=== PATIENT | female | born 1945 | race Caucasian/White ===

== ENCOUNTER 2020-03-04 13:58 | Observation (INO) | payer MEDICARE, SELFPAY ==
[2020-03-04] VITALS (12 sets, daily range): BP systolic 148–210; BP diastolic 46–96; PULSE 45–72; RESP 17–20; TEMP 36.6–36.7; O2SAT 98–100; BMI 28.0
--- NOTE | ~2020-03-04 | XR_ITS ---
XR chest 1V portable 03/04/2020 14:58 Indication: Hypertension. Procedure: AP portable chest Comparison: 04/29/2017 Findings: Heart size normal for technique. No focal air space disease, pulmonary edema, pleural effus ion or suspected pneumothorax. No acute osseous abnormality. Impression: 1: No acute cardiopulmonary disease. Reviewed, dictated and finalized at location A. Impression: 1: No acute cardiopulmonary disease.
[2020-03-04 15:09] LABS: Basophils Percent Auto 0.6 % (0.2-1.2); Eosinophils Absolute Auto 0.3 K/mm3 (0-0.3); Eosinophils Percent Auto 5.1 % (0-4.4); Hematocrit 39.7 % (37.0-47.0); Hemoglobin 12.6 g/dL (12.0-15.0); Immature Granulocyte Absolute 0.01 K/mm3 (0.00-0.031); Immature Granulocyte Percent A 0.2 % (0-0.5); Lymphocytes Absolute Auto 1.69 K/mm3 (0.9-3.2); Lymphocytes Percent Auto 26.9 % (18.3-44.2); Mean Corpuscular HGB Conc 31.7 g/dl (32-36); Mean Corpuscular Hemoglobin 26.8 pg (26-34); Mean Corpuscular Volume 84.5 fl (80-100); Mean Platelet Volume 10.3 fl (7.4-10.4); Monocytes Absolute Auto 0.5 K/mm3 (0.1-0.6); Monocytes Percent Auto 7.8 % (2.6-8.5); Neutrophils Absolute Auto 3.7 K/mm3 (1.3-6.7); Neutrophils Percent Auto 59.4 % (45.5-73.1); Platelet Count Result 196 k/mm3 (150-375); Red Cell Distribution Width 13.4 % (11.5-14.5); White Blood Count 6.3 K/mm3 (4.5-10.0)
[2020-03-04] MEDS: SODIUM CHLORIDE 0.9% IV 1,000 ML 999 ML IV CONT (15:17)
[2020-03-04 15:20] LABS: Alanine Aminotransferase 12 U/L (4-35); Alkaline Phosphatase 104 U/L (38-126); Aspartate Amino Transferase 22 U/L (14-36); Bilirubin,Total 0.4 mg/dL (0.2-1.3); Blood Urea Nitrogen 21 mg/dL (7-17); Carbon Dioxide 27 mmol/L (22-30); Chloride 106 mmol/L (98-107); Estimated CRCL calculation 49 ml/min; Estimated Glomerular Filt Rate > 60; Glucose 97 mg/dL (65-105); Potassium 4.2 mmol/L (3.4-5.0); Sodium 138 mmol/L (137-145)
[2020-03-04 15:24] LABS: Prothrombin Time 12.5 Seconds (11.1-14.7)
[2020-03-04 15:25] LABS: Partial Thromboplastin Time 27.6 SECONDS (22.3-36.8)
[2020-03-04 15:32] LABS: Troponin I < 0.012 ng/mL (0.000-0.034)
--- NOTE | 2020-03-04 15:32 | ED.GENADULT ---
HPI - General Adult General Chief complaint: Unspecified <VAN Boswell Last Filed: 03/04/20 18:01> Stated complaint: high bp <VAN Boswell Last Filed: 03/04/20 18:01> Time Seen by Provider: 03/04/20 14:20 <VAN Boswell Last Filed: 03/04/20 18:01> Source: patient <VAN Boswell Last Filed: 03/04/20 18:01> Mode of arrival: ambulatory <VAN Boswell Last Filed: 03/04/20 18:01> Limitations: no limitations <VAN Boswell Last Filed: 03/04/20 18:01> History of Present Illness HPI narrative: Patient is a 74-year-old female who presents to emergency department for evaluation of palpitations that began this morning while walking up the stairs have been working in her yard went inside went to the basement and upon walking up the stairs began to feel as though she was having palpitations sat down and then decided to go to urgent care where she was evaluated found to have hypertension was referred to the emergency department for further evaluation of her palpitations and elevated blood pressure. Patient notes several months prior she had taken herself off all of her medications. Patient is followed by Dr. Chavarria. Patient denies any recent illness sick contacts. Patient denies chest pain dyspnea lightheadedness or dizziness <VAN Boswell Last Filed: 03/04/20 18:01> Related Data Home medications: Home Medications Medication Instructions Recorded Confirmed No Home Medications 03/04/20 03/04/20 <VAN Boswell Last Filed: 03/04/20 18:01> Allergies/adverse reactions: Allergies Allergy/AdvReac Type Severity Reaction Status Date / Time No Known Allergies Allergy Unverified 03/04/20 14:08 <VAN Boswell Last Filed: 03/04/20 18:01> Review of Systems Review of Systems: All systems reviewed & are unremarkable except as noted in HPI and below <VAN Boswell Last Filed: 03/04/20 18:01> [facility] Past Medical History Medical History: Medical History (Updated 03/04/20 @ 18:00 by Ron Zaragoza PA-C) Breast cancer Hypertension <Ron Zaragoza PA-C - Last Filed: 03/04/20 18:01> Family History Family History: Family History (Updated 04/28/18 @ 11:41 by DOCTOR UNKNOWN) Father Hypertension Family history of coronary artery disease Family history of malignant neoplasm Patient's father is Grandparent Cerebrovascular accident Mother Carcinoma of colon Family history of malignant neoplasm Patient's mother is Sibling Patient's sister is in good health Patient's brother is in good health <Ron Zaragoza PA-C - Last Filed: 03/04/20 18:01> Social History Social History: Social History Smoking status: Former smoker Smoking end date: 11/07/82 Alcohol intake: current Gender identity (if verbalized by the patient): Female <Ron Zaragoza PA-C - Last Filed: 03/04/20 18:01> Exam Narrative: Exam Narrative: GENERAL: Well-appearing, well-nourished, and in no acute distress. HEAD: Normocephalic, atraumatic. EYES: PERRLA and EOMI. ENT: Nares clear, no rhinorrhea or epistaxis. Mucous membranes moist. CHEST: Clear to auscultation. No respiratory distress. No wheezes rales or rhonchi HEART: Regular rate and rhythm. No murmur heard. Normal peripheral pulses. ABDOMEN: Soft, nontender, nondistended EXTREMITIES: Normal range of motion. No edema. SKIN: Warm, dry, no rash. NEURO: No focal deficits. Alert and oriented x3. Cranial nerves II through XII grossly intact PSYCH: Normal mood and affect. <Ron Zaragoza PA-C - Last Filed: 03/04/20 18:01> Course Course Emergency Course: Patient in the room in no distress aware of case findings treatment plan and diagnosis agreeing to stay in hospital will be placed in the IMU
--- NOTE | 2020-03-04 15:38 | ECG_ITS ---
Measurements Intervals [place] Rate: 51 P: 40 AL: 159 QRS: 82 QRSD: 97 T: 88 QT: 462 QTc: 427 Interpretive Statements SINUS BRADYCARDIA WITH MARKED SINUS ARRHYTHMIA ATRIAL PREMATURE COMPLEX BORDERLINE ST ABNORMALITY- ANTEROLAT/LAT LEADS BORDERLINE ECG Electronically Signed On 03-05-2020 7:12:45 CDT by Cristo Hernández D.O.
--- NOTE | 2020-03-04 17:07 | PC.NURSE ---
Called lab to add on TSH Reflex.
[2020-03-04 17:18] LABS: Add Urine Microscopic? YES; Appearance Urine Clear (Clear); Bilirubin Urine Negative (Negative); Blood Urine Negative (Negative); Color Urine Colorless (Yellow); Glucose Urine UA Negative (Negative); Ketones Urine Negative (Negative); Leukocyte Esterase Ur Trace LEU/UL (Negative); Nitrate Urine Negative (Negative); Protein Urine Negative (Negative); RBC Urine 0-2 /hpf (0-2); Specific Grav Ur 1.006 (1.001-1.035); Squamous Epithelial Cell Urine Rare /hpf (Few); Urobilinogen Urine Negative mg/dL (<2.0)
--- NOTE | 2020-03-04 18:13 | PC.NURSE ---
Patient given 10 mg (0.5ml) of hydralazine IVP at this time per order of ELIZABETH Hill
[2020-03-04] MEDS: hydrALAZINE HCL 20 MG/ML VIAL (18:19)
[2020-03-04 18:46] LABS: Troponin I < 0.012 ng/mL (0.000-0.034)
--- NOTE | 2020-03-04 20:27 | ADMGEN ---
This patient, Bekah Gore, was admitted to IMU Room 203-01. Patient/family oriented to hospital policies and general routines including ID bracelet, bed and alarms, visiting hours, pain management, procedures, bathroom and other care routines, personal items, smoking policy, room service/diet, and visiting hours. Valuables list has been completed. Information on how to activate the Rapid Response Team has been discussed. Patient/Family are encouraged to report perceived risks to care and to ask questions if they do not understand what they are told or what they should do.
[2020-03-04] MEDS: LACTATED RINGERS 1,000 ML 75 ML IV CONT (21:02)
[2020-03-05] VITALS (11 sets, daily range): BP systolic 155–167; BP diastolic 48–67; PULSE 46–90; RESP 16–18; TEMP 36.1–36.6; O2SAT 97–98
--- NOTE | 2020-03-05 09:13 | PM.IMHP ---
H&P: HPI History of Present Illness Chief complaint: Bradycardia, Hypertension Review of Systems Review of Systems: Narrative: Generalized joint aches helped by 2 [place] and black sotomayor juice. All systems reviewed & are unremarkable except as noted in HPI and below PMFSH Past Medical History Medical History (Updated 03/05/20 @ 09:20 by Negrito Crowley MD) Breast cancer 2010, treated with lumpectomy and adjuvant radiotherapy Hypertension dx about 2009 Surgical History Surgical History (Updated 03/05/20 @ 09:18 by Negrito Crowley MD) H/O lumpectomy 2010 Family History Family History Father Hypertension Family history of coronary artery disease Family history of malignant neoplasm Patient's father is Grandparent Cerebrovascular accident Mother Carcinoma of colon Family history of malignant neoplasm Patient's mother is Sibling Patient's sister is in good health Patient's brother is in good health Social History Social History (Updated 03/05/20 @ 09:19 by Negrito Crowley MD) Years smoked: 10 Smoking status: Former smoker Tobacco type: cigarettes Second hand tobacco smoke exposure: Yes Smoking end date: 11/07/82 Alcohol intake: current Alcohol use details: Occasional red wine. Occasional gin and tonic when her sister visits. Substance use: never Substance use type: does not use Living arrangements: with family Additional living arrangements comments: Resides with spouse Occupation/Education: retired Gender identity (if verbalized by the patient): Female Spiritual care concerns: Yes (faith) Agree to blood products: Yes Meds Home Medications and Allergies Home Medications Medication Instructions Recorded Confirmed Type ascorbic acid (vitamin C) [Vitamin 250 mg PO DAILY 03/04/20 03/04/20 History C] calcium carbonate [Calcium 500] 500 mg PO DAILY 03/04/20 03/04/20 History turmeric 400 mg PO DAILY 03/04/20 03/04/20 History vitamin B complex 1 cap PO DAILY 03/04/20 03/04/20 History zinc 50 mg PO DAILY 03/04/20 03/04/20 History Allergies Allergy/AdvReac Type Severity Reaction Status Date / Time No Known Allergies Allergy Unverified 03/04/20 14:08 Vital Signs Vital Signs - 24 hr 03/04/20 14:05 03/04/20 14:19 03/04/20 14:24 Temperature 97.8 F Pulse Rate 53 L 45 L 46 L Respiratory Rate 18 20 Blood Pressure 154/96 H 210/76 H Pulse Oximetry 100 99 03/04/20 15:18 03/04/20 16:30 03/04/20 17:08 Temperature Pulse Rate 47 L 56 L 57 L Respiratory Rate 20 20 Blood Pressure 200/61 H 167/59 H 210/76 H Pulse Oximetry 99 100 03/04/20 18:01 03/04/20 19:12 03/04/20 20:00 Temperature 97.9 F 98.0 F Pulse Rate 58 L 72 60 Respiratory Rate 17 20 20 Blood Pressure 187/80 H 166/57 H 165/53 H Pulse Oximetry 98 98 98 03/04/20 20:15 03/04/20 22:00 03/04/20 23:33 Temperature 98.0 F Pulse Rate 48 L 54 L Respiratory Rate 20 18 Blood Pressure 148/46 H Pulse Oximetry 98 99 03/05/20 00:00 03/05/20 02:00 03/05/20 04:00 Temperature 97.8 F Pulse Rate 53 L 51 L 51 L Respiratory Rate 18 Blood Pressure 155/67 H Pulse Oximetry 97 03/05/20 05:57 03/05/20 07:57 Temperature 96.9 F L Pulse Rate 49 L 90 Respiratory Rate 18 Blood Pressure 162/55 H Pulse Oximetry 98 Exam Narrative: Exam Narrative: HEENT: EOMI, PERRL, pharyngeal mucosa pink and intact NECK: No JVD, adenopathy, or thyromegaly. About 2 x 1 cm nontender subcutaneous cyst supraclavicular CHEST: Clear to auscultation. Normal effort. HEART: NL S1/S2, regular, no murmur ABDOMEN: BS+, soft, nontender, no mass, no bruits EXTREMITIES: No cyanosis, edema, or clubbing NEUROLOGIC: CN intact and symmetric to inspection. MUSCULOSKELETAL: Tone and strength symmetric. PSYCH: Alert. Oriented to person, place, and time. H&P: Results Labs Labs: Short CBC
--- NOTE | 2020-03-05 09:22 | PM.SD ---
Same Day Admit/Disch: HPI History of Present Illness Chief complaint: Bradycardia, Hypertension Narrative: Bekah Gore is a 74 year old female who was diagnosed with hypertension about 10 years ago. She was treated with valsartan 300 mg daily. She was also taking Prilosec 20 mg daily for acid reflux. Blood pressure and heartburn were both well controlled. She moved to this area about 5 years ago. Blood pressures are doing well. She did lose some weight. Wanted to decrease her medication. It was not decreased. About June of 2019 she received letters all regarding both drugs she was taking stating that both might be carcinogenic. She decided to intensify her healthy lifestyle with walking low-salt and weight loss. She stopped both drugs. She did not monitor her blood pressure. She continued to feel well. However over the last couple of weeks she began to experience some heavy beats in her chest, as if she were feeling her heartbeat intermittently. Her had a blood pressure cuff and on 02/24 a she decided to check it. It was 210/90. She presented to urgent care and then to the emergency department. She denied chest pain dizziness syncope presyncope headache weakness or numbness shortness of breath edema. She denied and epistaxis or other abnormal bleeding. [facility] Past Medical History Medical History Breast cancer 2010, treated with lumpectomy and adjuvant radiotherapy Hypertension dx about 2009 Surgical History Surgical History H/O lumpectomy 2010 Family History Family History Father Hypertension Family history of coronary artery disease Family history of malignant neoplasm Patient's father is Grandparent Cerebrovascular accident Mother Carcinoma of colon Family history of malignant neoplasm Patient's mother is Sibling Patient's sister is in good health Patient's brother is in good health Social History Social History Years smoked: 10 Smoking status: Former smoker Tobacco type: cigarettes Second hand tobacco smoke exposure: Yes Smoking end date: 11/07/82 Alcohol intake: current Alcohol use details: Occasional red wine. Occasional gin and tonic when her sister visits. Substance use: never Substance use type: does not use Living arrangements: with family Additional living arrangements comments: Resides with spouse Occupation/Education: retired Gender identity (if verbalized by the patient): Female Spiritual care concerns: Yes (lutheran) Agree to blood products: Yes Same Day Admit/Disch: Med Pre-admit Medications Home Medications Medication Instructions Recorded Confirmed Type ascorbic acid (vitamin C) [Vitamin 250 mg PO DAILY 03/04/20 03/04/20 History C] calcium carbonate [Calcium 500] 500 mg PO DAILY 03/04/20 03/04/20 History turmeric 400 mg PO DAILY 03/04/20 03/04/20 History vitamin B complex 1 cap PO DAILY 03/04/20 03/04/20 History zinc 50 mg PO DAILY 03/04/20 03/04/20 History Exam Narrative: Exam Narrative: HEENT: EOMI, PERRL, pharyngeal mucosa pink and intact NECK: No JVD, adenopathy, or thyromegaly. About 2 x 1 cm nontender subcutaneous cyst supraclavicular CHEST: Clear to auscultation. Normal effort. HEART: NL S1/S2, regular, no murmur ABDOMEN: BS+, soft, nontender, no mass, no bruits EXTREMITIES: No cyanosis, edema, or clubbing NEUROLOGIC: CN intact and symmetric to inspection. MUSCULOSKELETAL: Tone and strength symmetric. PSYCH: Alert. Oriented to person, place, and time. DS: Data Data Completed and Pending Labs on day of discharge: Labs from last 24 hours 03/04/20 03/04/20 03/04/20 17:56 17:11 15:02 WBC RBC Hgb Hct MCV MCH MCHC RDW
[2020-03-05] MEDS: AMLODIPINE BESYLATE 5 MG TABLET PO (10:16)
== END 2020-03-05 13:55 | disposition home or self-care (01) ==
LOC: ANHED 18:07 → ANHIMU 20:31
PROVIDERS: Emergency Medicine Emergency Medical Services; Admitting Provider Internal Medicine; Emergency Provider Emergency Medicine; PCP Internal Medicine; Visit Provider Internal Medicine
DX: I16.0 Hypertensive urgency (principal); I10 Essential (primary) hypertension; R00.1 Bradycardia, unspecified; Z85.3 Personal history of malignant neoplasm of breast; Z87.891 Personal history of nicotine dependence
CPT/HCPCS: 36415; 71045; 80053; 81001; 84443; 84484; 85025; 85610; 85730; 93005; 96361; 96374; 99285; A9270; G0378; J0360; J7030; J7120

== ENCOUNTER 2020-03-21 06:59 | Outpatient (CLI) | payer MEDICARE, SELFPAY ==
[2020-03-21 17:06] LABS: SARS-CoV-2 RNA PCR Negative
== END 2020-03-21 07:00 | disposition home or self-care (01) ==
LOC: ANHCOVIDDT 07:00
PROVIDERS: PCP Internal Medicine; Visit Provider Internal Medicine Gastroenterology
DX: Z01.818 Encounter for other preprocedural examination (principal); Z11.59 Encounter for screening for other viral diseases
CPT/HCPCS: 87635; C9803; U0003

== ENCOUNTER 2020-03-24 01:42 | Day surgery (SDC) | payer MEDICARE, SELFPAY ==
[2020-03-18 14:29] VITALS: BMI 27.0
[2020-03-24 06:47] VITALS: BP 165/68; PULSE 57; RESP 16; TEMP 36.8; O2SAT 100
[2020-03-24] MEDS: LACTATED RINGERS 1,000 ML 150 ML IV CONT (07:07)
--- NOTE | 2020-03-24 07:09 | P.PNAN_ITS ---
Anes - Initial Pre Proc Eval Procedure: Operation Date: 03/24/20 08:00 Proposed Procedures p Esophagogastroduodenoscopy - Niko Dolan MD Date/Time: 03/24/20 07:09 Surgeon: Niko Dolan MD Pre Op Diagnosis: Dysphagia Patient Data Age: 74 Gender: F Height: 5 ft 6 in Weight: 76.3 kg Last Vital Signs Temp 36.8 C 03/24/20 06:47 Pulse 57 L 03/24/20 06:47 Resp 16 03/24/20 06:47 BP 165/68 H 03/24/20 06:47 Pulse Ox 100 03/24/20 06:47 Allergies Allergy/AdvReac Type Severity Reaction Status Date / Time No Known Allergies Allergy Unverified 03/24/20 06:58 Home Medications Medication Instructions Recorded Confirmed Type ascorbic acid (vitamin C) [Vitamin 250 mg PO DAILY 03/04/20 03/18/20 History C] calcium carbonate [Calcium 500] 500 mg PO DAILY 03/04/20 03/18/20 History turmeric 400 mg PO DAILY 03/04/20 03/18/20 History vitamin B complex 1 cap PO DAILY 03/04/20 03/18/20 History zinc 50 mg PO DAILY 03/04/20 03/18/20 History amlodipine 10 mg tablet 10 mg PO DAILY #90 tablet 03/13/20 03/18/20 Rx Patient hx anesthesia problems: none Family hx anesthesia problems: none PMFSH Past Medical History Medical History (Updated 03/24/20 @ 07:10 by Josue Hunter MD) Asthma Breast cancer 2010, treated with lumpectomy and adjuvant radiotherapy GERD (gastroesophageal reflux disease) Hypertension dx about 2009 Surgical History Surgical History H/O lumpectomy 2010 Family History Family History Father Hypertension Family history of coronary artery disease Family history of malignant neoplasm Patient's father is Grandparent Cerebrovascular accident Mother Carcinoma of colon Family history of malignant neoplasm Patient's mother is Sibling Patient's sister is in good health Patient's brother is in good health Social History Social History Years smoked: 10 Smoking status: Former smoker Tobacco type: cigarettes Second hand tobacco smoke exposure: Yes Smoking end date: 11/07/82 Alcohol intake: current Substance use: never Substance use type: does not use Additional living arrangements comments: Resides with spouse Gender identity (if verbalized by the patient): Female Spiritual care concerns: Yes (episcopal) Agree to blood products: Yes Anes - Eval Final PreProcedure Day of Procedure 03/24/20 07:09 Patient weight: overweight Heart: regular rate and rhythm Lungs: decreased breath sounds Airway: Mallampati scale class 1 Neurological: alert and oriented Last oral intake: >/= 8 hours ASA classification: III Emergent: no Anesthetic plan: proceed Anesthesia type and monitoring: general GIVS and standard monitoring Informed Consent: The patient's anesthetic plan and its attendant risks and benefits were discussed with the patient/family/POA. Questions were solicited and answers provided to the satisfaction of the patient/family/POA.
--- NOTE | 2020-03-24 07:20 | PM.HPGS ---
History of Present Illness History of Present Illness Consent: Risks, benefits, and alternatives have been discussed and questions answered. Patient agrees to proceed with procedure. Chief complaint: Dysphagia Narrative: Bekah Gore is a 74 year old W female referred for gastroscopy for evaluation of intermittent dysphagia for primarily solids but occasionally occurs with liquids. She points to her cervical region. She has also had increased symptoms of hoarseness. She does have a history of gastroesophageal reflux disease. She had been on proton pump inhibitors for long period of time stop this for the past couple years because of warning with medications. Patient did have a gastroscopy performed by myself in 2017 for similar symptoms. No structural abnormalities were noted. There was recommended the patient have an esophageal motility study but this was not performed. Patient was recently hospitalized for hypertension and bradycardia. She has stopped her blood pressure medicine the well. [facility] Past Medical History Medical History Asthma Breast cancer 2010, treated with lumpectomy and adjuvant radiotherapy GERD (gastroesophageal reflux disease) Hypertension dx about 2009 Surgical History Surgical History H/O lumpectomy 2010 Family History Family History Father Hypertension Family history of coronary artery disease Family history of malignant neoplasm Patient's father is Grandparent Cerebrovascular accident Mother Carcinoma of colon Family history of malignant neoplasm Patient's mother is Sibling Patient's sister is in good health Patient's brother is in good health Social History Social History Years smoked: 10 Smoking status: Former smoker Tobacco type: cigarettes Second hand tobacco smoke exposure: Yes Smoking end date: 11/07/82 Alcohol intake: current Substance use: never Substance use type: does not use Additional living arrangements comments: Resides with spouse Gender identity (if verbalized by the patient): Female Spiritual care concerns: Yes (religion) Agree to blood products: Yes Meds Home Medications and Allergies Home Medications Medication Instructions Recorded Confirmed Type ascorbic acid (vitamin C) [Vitamin 250 mg PO DAILY 03/04/20 03/18/20 History C] calcium carbonate [Calcium 500] 500 mg PO DAILY 03/04/20 03/18/20 History turmeric 400 mg PO DAILY 03/04/20 03/18/20 History vitamin B complex 1 cap PO DAILY 03/04/20 03/18/20 History zinc 50 mg PO DAILY 03/04/20 03/18/20 History amlodipine 10 mg tablet 10 mg PO DAILY #90 tablet 03/13/20 03/18/20 Rx Allergies Allergy/AdvReac Type Severity Reaction Status Date / Time No Known Allergies Allergy Unverified 03/24/20 06:58 Vital Signs Vital Signs - 24 hr 03/24/20 06:47 Temperature 36.8 C Pulse Rate 57 L Respiratory Rate 16 Blood Pressure 165/68 H Pulse Oximetry 100 Exam Const: Orientation/consciousness: patient oriented x3 Resp: Auscultation: clear to auscultation bilaterally Cardio: Rate: regular rate Rhythm: regular rhythm Heart sounds: no murmurs GI: GI Palp: Yes Soft to palpation, No Tenderness to palpation present (GI), Yes No hepatosplenomegaly present and No Palpable mass present Auscultation: normal bowel sounds Neuro: General: patient oriented x3 and no focal motor deficits Extrem: General: no pedal edema Assessment and Plan Additional Plan EGD with possible esophageal dilatation for evaluation of dysphagia heartburn
[2020-03-24 08:25] VITALS: BP 121/59; PULSE 46; RESP 24; O2SAT 98
[2020-03-24 08:35] VITALS: BP 130/58; PULSE 40; RESP 22; O2SAT 98
[2020-03-24 08:45] VITALS: BP 134/60; PULSE 43; RESP 19; O2SAT 98
== END 2020-03-24 09:15 | disposition home or self-care (01) ==
PROVIDERS: PCP Internal Medicine; Visit Provider Internal Medicine Gastroenterology
PROC: 0DJ08ZZ Inspection of Upper Intestinal Tract, Via Natural or Artificial Opening Endoscopic (ICD-10-PCS; CPT 43235; principal; 2020-03-24 08:00)
DX: K21.0 Gastro-esophageal reflux disease with esophagitis (principal); D13.2 Benign neoplasm of duodenum; K44.9 Diaphragmatic hernia without obstruction or gangrene; K29.50 Unspecified chronic gastritis without bleeding; I10 Essential (primary) hypertension; Z85.3 Personal history of malignant neoplasm of breast
CPT/HCPCS: 43239; 87081; 88305; J2001; J2704; J7120

== ENCOUNTER 2020-04-14 07:38 | Outpatient (CLI) | payer MEDICARE, SELFPAY ==
--- NOTE | 2020-04-14 08:43 | EST_ITS ---
Patient Info Name: Bekah Gore Age: 74 years : 1945 Gender: Female Ht: 66 in Wt: 168 lbs BSA: 1.90 m2 Exam Date: 04/14/2020 9:05 AM Exam Location: [facility] Patient Status: Outpatient Admit Date: 04/14/2020 Staff Ordering Physician: Truong Chavarria DO Attending Provider: Truong Chavarria DO Exercise Technologist: Audra Meléndez RDCS Nurse: Diane Armendariz ANP, ACNP- Exam Type: CA stress test treadmill Study Info Indications R00.1 - Bradycardia, unspecified A treadmill exercise stress test was performed. Summary 1. Submaximal ETT with nondiagnostic ST/T wave abnormalities. Patient achieved a peak HR of 109 BPM which is 75% MPHR. 2. Marked baseline hypertension. 3. Below average exercise capacity for age. Protocol: [facility] ECG Details Stage: REST Duration (min): 2 min : 2 sec Speed (mph): 0.0 Grade (%): 0 HR (bpm): 48 SBP (mmHg): 164 DBP (mmHg): 55 METS: --- Stage: REST Duration (min): 12 min : 17 sec Speed (mph): 0.0 Grade (%): 0 HR (bpm): 44 SBP (mmHg): 164 DBP (mmHg): 55 METS: --- Stage: STAGE 1 Duration (min): 1 min : 0 sec Speed (mph): 1.7 Grade (%): 10 HR (bpm): 72 SBP (mmHg): 164 DBP (mmHg): 55 METS: --- Stage: STAGE 1 Duration (min): 2 min : 0 sec Speed (mph): 1.7 Grade (%): 10 HR (bpm): 80 SBP (mmHg): 164 DBP (mmHg): 55 METS: --- Stage: STAGE 1 Duration (min): 3 min : 0 sec Speed (mph): 1.7 Grade (%): 10 HR (bpm): 79 SBP (mmHg): 164 DBP (mmHg): 55 METS: --- Stage: STAGE 2 Duration (min): 1 min : 0 sec Speed (mph): 2.5 Grade (%): 12 HR (bpm): 85 SBP (mmHg): 209 DBP (mmHg): 58 METS: --- Stage: STAGE 2 Duration (min): 2 min : 0 sec Speed (mph): 2.5 Grade (%): 12 HR (bpm): 99 SBP (mmHg): 209 DBP (mmHg): 58 METS: --- Stage: STAGE 2 Duration (min): 3 min : 0 sec Speed (mph): 2.5 Grade (%): 12 HR (bpm): 107 SBP (mmHg): 219 DBP (mmHg): 58 METS: --- Stage: RECOVERY Duration (min): 0 min : 59 sec Speed (mph): 0.0 Grade (%): 0 HR (bpm): 88 SBP (mmHg): 214 DBP (mmHg): 56 METS: --- Stage: RECOVERY Duration (min): 1 min : 59 sec Speed (mph): 0.0 Grade (%): 0 HR (bpm): 70 SBP (mmHg): 214 DBP (mmHg): 56 METS: --- Stage: RECOVERY Duration (min): 2 min : 59 sec Speed (mph): 0.0 Grade (%): 0 HR (bpm): 66 SBP (mmHg): 214 DBP (mmHg): 56 METS: --- Stage: RECOVERY Duration (min): 3 min : 59 sec Speed (mph): 0.0 Grade (%): 0 HR (bpm): 70 SBP (mmHg): 215 DBP (mmHg): 52 METS: --- Stage: RECOVERY Duration (min): 4 min : 59 sec Speed (mph): 0.0 Grade (%): 0 HR (bpm): 63 SBP (mmHg): 215 DBP (mmHg): 52 METS: ---
== END 2020-04-14 07:39 | disposition home or self-care (01) ==
LOC: ANHCARD 07:39
PROVIDERS: PCP Internal Medicine; Visit Provider Internal Medicine
DX: I10 Essential (primary) hypertension (principal)
CPT/HCPCS: 93017

== ENCOUNTER 2020-04-24 08:35 | Outpatient (CLI) | payer MEDICARE, SELFPAY ==
--- NOTE | ~2020-04-24 | NM_ITS ---
EXAMINATION: NM dwayne stress w perfusion DATE: 04/24/2020 11:37 INDICATION: Abnormal cardiovascular stress test. TECHNIQUE: Rest images were obtained following intravenous administration of 10.1 mCi Tc99m tetrofosm in (Myoview). The patient was infused intravenously with Lexiscan (regadenoson). Then, 28.3 mCi Tc99m tetrofosmin (Myoview) was administered intravenously, and stress images were obtained. Data was dorothy nstructed into short axis and horizontal and vertical long axis SPECT images. Gated SPECT images were also obtained. COMPARISON: None. FINDINGS: There is no definite reversible or fixed perfusion abnormality to suggest ischemia or infar ction. There is no segmental wall motion abnormality. Left ventricular ejection fraction measures > 70%. IMPRESSION: 1. No definite ischemia or infarct. 2. Normal left ventricular ejection fraction measuring >70%. Reviewed, dictated and finalized at location A.
--- NOTE | 2020-04-24 09:02 | EST_ITS ---
Patient Info Name: Bekah Gore Age: 74 years : 1945 Gender: Female Ht: 66 in Wt: 167 lbs BSA: 1.89 m2 Heart Rhythm: Bradycardia, Sinus Rhythm Exam Date: 04/24/2020 10:27 AM Exam Location: [facility] Patient Status: Outpatient Admit Date: 04/24/2020 Staff Ordering Physician: Truong Chavarria DO Attending Provider: Truong Chavarria DO Exercise Technologist: Audra Meléndez RDCS Nurse: Diane Armendariz, ANP, ACNP-BC Exam Type: CA stress dwayne w NM Study Info Indications R94.39 - Abnormal result of other cardiovascular function study I10 - Essential (primary) hypertension A regadenoson stress test was performed. Summary 1. No abnormal ST/T wave changes consistent with myocardial ischemia observed with Lexiscan. 2. No arrhythmias were observed during the examination. 3. Please correlate with nuclear medicine images, reported separately. Protocol: Lex[facility]an Stress ECG Details Stage: REST Duration (min): 3 min : 39 sec HR (bpm): 42 SBP (mmHg): 161 DBP (mmHg): 55 Stage: REST Duration (min): 23 min : 23 sec HR (bpm): 55 SBP (mmHg): 161 DBP (mmHg): 55 Stage: STAGE 1 Duration (min): 1 min : 0 sec HR (bpm): 66 SBP (mmHg): 161 DBP (mmHg): 55 Stage: RECOVERY Duration (min): 1 min : 0 sec HR (bpm): 67 SBP (mmHg): 176 DBP (mmHg): 60 Stage: RECOVERY Duration (min): 2 min : 0 sec HR (bpm): 64 SBP (mmHg): 178 DBP (mmHg): 60 Stage: RECOVERY Duration (min): 3 min : 0 sec HR (bpm): 60 SBP (mmHg): 178 DBP (mmHg): 60 Stage: RECOVERY Duration (min): 4 min : 0 sec HR (bpm): 52 SBP (mmHg): 177 DBP (mmHg): 59 Stage: RECOVERY Duration (min): 5 min : 0 sec HR (bpm): 55 SBP (mmHg): 155 DBP (mmHg): 58 Stage: RECOVERY Duration (min): 5 min : 5 sec HR (bpm): 57 SBP (mmHg): 155 DBP (mmHg): 58 Rest HR: 55 bpm Peak HR: 72 bpm Rest Sys BP: 161 mmHg Peak Sys BP: 178 mmHg Max Pred HR: 144 bpm % Max Pred HR: 50 % Target HR: 122 bpm Max RPP: 12,816 bpm*mmHg BP Response: Normal blood pressure response Termination Reason: Completed protocol Cardiac Symptoms: None Total Time: 1 min : 0 sec Rest Eli BP: 55 mmHg Peak Eli BP: 60 mmHg Total Dose: 0.4 mg Resting ECG Sinus bradycardia. Short CO interval. Stress ECG No abnormal ST/T wave changes consistent with myocardial ischemia observed with Lexiscan. Arrhythmias No arrhythmias were observed during the examination. Report Signatures
== END 2020-04-24 08:36 | disposition home or self-care (01) ==
PROVIDERS: PCP Internal Medicine; Visit Provider Internal Medicine
DX: I10 Essential (primary) hypertension (principal); R94.39 Abnormal result of other cardiovascular function study; R07.9 Chest pain, unspecified
CPT/HCPCS: 78452; 93017; A9502; J2785

== ENCOUNTER 2020-07-01 02:10 | Outpatient (CLI) | payer MEDICARE, SELFPAY ==
[2020-07-01 18:23] LABS: SARS-CoV-2 RNA PCR Negative
== END 2020-07-01 02:11 | disposition home or self-care (01) ==
LOC: ANHCOVIDDT 02:11
PROVIDERS: PCP Internal Medicine; Visit Provider Internal Medicine Cardiovascular Disease
DX: Z01.812 Encounter for preprocedural laboratory examination (principal); Z20.828 Contact with and (suspected) exposure to other viral communicable diseases
CPT/HCPCS: 87635; C9803; U0003

== ENCOUNTER 2020-07-03 10:03 | Day surgery (SDC) | payer MEDICARE, SELFPAY ==
[2020-07-02 09:42] VITALS: BMI 26.3
[2020-07-03] VITALS (16 sets, daily range): BP systolic 117–160; BP diastolic 51–96; PULSE 47–74; RESP 14–19; TEMP 36.3–37.1; O2SAT 95–99; BMI 27.3
--- NOTE | ~2020-07-03 | XR_ITS ---
EXAMINATION: XR chest 1V portable DATE: 07/03/2020 14:22 INDICATION: Pacemaker insertion TECHNIQUE: frontal view of the chest was obtained. COMPARISON: Chest radiograph dated 03/04/2020 FINDINGS: The lungs remain clear with no focal airspace opacities, pulmonary edema, pleural effusion or pneumot horax. The cardiomediastinal silhouette is normal. New dual-lead cardiac pacemaker with lead tips pro jecting over the right atrium and right ventricle. IMPRESSION: 1. Dual-lead cardiac pacemaker in expected position. No acute cardiopulmonary disease. Reviewed, dictated and finalized at location A. IMPRESSION: 1. Dual-lead cardiac pacemaker in expected position. No acute cardiopulmonary d isease.
--- NOTE | ~2020-07-03 | XR_ITS ---
EXAMINATION: XR chest 2V DATE: 07/04/2020 08:37 INDICATION: Pacer placement. Postop. TECHNIQUE: Frontal and lateral views of the chest were obtained. COMPARISON: Chest single view 07/03/2020 FINDINGS: Calcified pulmonary nodules are consistent with old granulomatous disease. There is mild at electasis in left lower lung zone. No pleural effusion or pneumothorax. The heart size is normal. The re is a left chest wall pacer with leads in the right atrium and right ventricle. IMPRESSION: 1. Mild atelectasis in left lower lung zone. Reviewed, dictated and finalized at location B.
--- NOTE | 2020-07-03 10:10 | SUR.PREOP ---
ARRIVES AMBULATORY TO [facility] W/ AT SIDE FOR SCHEDULED PPM W/ DR. DELACRUZ. A&OX4 ON ARRIVAL. DENIES CP OR SOB. ORIENTED TO ROOM, PLAN OF CARE, PROCEDURE. QUESTIONS ANSWERED. VOICED UNDERSTANDING. IV STARTED, LABS SENT, VS OBTAINED, SKIN PREP COMPLETED, CONSENT SIGNED. MONITOR SB 40'S. WILL MONITOR.
[2020-07-03 10:41] LABS: Basophils Absolute Auto 0.1 K/mm3 (0.0-0.1); Basophils Percent Auto 0.7 % (0.2-1.2); Eosinophils Absolute Auto 0.3 K/mm3 (0-0.3); Eosinophils Percent Auto 4.6 % (0-4.4); Hematocrit 42.7 % (37.0-47.0); Immature Granulocyte Absolute 0.01 K/mm3 (0.00-0.031); Immature Granulocyte Percent A 0.1 % (0-0.5); Lymphocytes Absolute Auto 1.91 K/mm3 (0.9-3.2); Lymphocytes Percent Auto 26.8 % (18.3-44.2); Mean Corpuscular HGB Conc 32.8 g/dl (32-36); Mean Corpuscular Hemoglobin 28.1 pg (26-34); Mean Corpuscular Volume 85.7 fl (80-100); Mean Platelet Volume 10.6 fl (7.4-10.4); Monocytes Absolute Auto 0.5 K/mm3 (0.1-0.6); Monocytes Percent Auto 6.5 % (2.6-8.5); Neutrophils Absolute Auto 4.4 K/mm3 (1.3-6.7); Neutrophils Percent Auto 61.3 % (45.5-73.1); Platelet Count Result 217 k/mm3 (150-375); Red Blood Count 4.98 M/mm3 (4.2-5.4); Red Cell Distribution Width 13.2 % (11.5-14.5); White Blood Count 7.1 K/mm3 (4.5-10.0)
[2020-07-03 10:56] LABS: Anion Gap 8 mmol/L (8-16); Blood Urea Nitrogen 23 mg/dL (7-17); Calcium 9.3 mg/dL (8.4-10.2); Carbon Dioxide 26 mmol/L (22-30); Chloride 105 mmol/L (98-107); Estimated CRCL calculation 36 ml/min; Estimated Glomerular Filt Rate 48; Glucose 128 mg/dL (65-105); Potassium 4.3 mmol/L (3.4-5.0); Prothrombin Time 12.4 Seconds (11.1-14.7); Sodium 139 mmol/L (137-145)
--- NOTE | 2020-07-03 11:48 | PM.IMHP ---
H&P: HPI History of Present Illness Date/Time: 07/03/20 11:48 Chief complaint: Symptomatic Bradycardia Narrative: Date of service: 07/03/2020 Bekah Gore is a 74 year old female With sinus node dysfunction and chronotropic incompetence who is here for elective dual-chamber pacemaker implant. The patient is followed by Dr. Shelley. He has had problems of lack of energy, easy fatigability and exertional intolerance for years that has been progressively worsening. She had a stress test which documented chronotropic incompetence, and home monitor shows an average heart rate of 48 beats per minute (range 34-82 BPM)with episodes of bradycardia and short pauses , up to 2.5 seconds. The patient's symptoms of shortness of breath correlated with her sinus bradycardia episodes. There is no evidence of any cardiomyopathy or CAD. She does have mild aortic stenosis and history of hypertension and hyperlipidemia. also history of asthma and breast cancer with lumpectomy and radiation therapy. She is right-handed hand has no history of clavicular fracture. Review of Systems Constitutional: Constitutional: Reports fatigue and Reports lethargy Eyes: Eyes: Reports no additional eye complaints ENT: Denies epistaxis Cardiovascular: Cardiovascular: Denies chest pain, Denies pedal edema, Denies leg edema, Denies lightheadedness and Denies palpitations Respiratory: Respiratory: Denies dyspnea and Reports dyspnea on exertion Gastrointestinal: Gastrointestinal: Denies abdominal pain Genitourinary: Genitourinary: Denies hematuria Musculoskeletal: Musculoskeletal: Denies back pain Integumentary/Breasts: Skin/Breast: Denies rash Neurologic: Reports system reviewed and no additional complaints, except as documented Psychiatric: Psychiatric: Reports no additional psychiatric complaints [facility] Past Medical History Medical History (Updated 07/03/20 @ 11:55 by Page Stoddard MD) Aortic stenosis Asthma Breast cancer 2010, treated with lumpectomy and adjuvant radiotherapy GERD (gastroesophageal reflux disease) Hypertension dx about 2009 Surgical History Surgical History H/O lumpectomy 2010 Family History Family History Father Hypertension Family history of coronary artery disease Family history of malignant neoplasm Patient's father is Grandparent Cerebrovascular accident Mother Carcinoma of colon Family history of malignant neoplasm Patient's mother is Sibling Patient's sister is in good health Patient's brother is in good health Social History Social History Years smoked: 10 Smoking status: Former smoker Tobacco type: cigarettes Second hand tobacco smoke exposure: Yes Smoking end date: 11/07/82 Alcohol intake: current Drinks per week: 1 Substance use: never Substance use type: does not use Last use: 1981 Living arrangements: with family Additional living arrangements comments: Resides with spouse Gender identity (if verbalized by the patient): Female Spiritual care concerns: No Agree to blood products: Yes Meds Home Medications and Allergies Home Medications Medication Instructions Recorded Confirmed Type ascorbic acid (vitamin C) [Vitamin 250 mg PO DAILY 03/04/20 07/02/20 History C] calcium carbonate [Calcium 500] 500 mg PO DAILY 03/04/20 07/02/20 History turmeric 400 mg PO DAILY 03/04/20 07/02/20 History vitamin B complex 1 cap PO DAILY 03/04/20 07/02/20 History zinc 50 mg PO DAILY 03/04/20 07/02/20 History amlodipine 10 mg tablet 10 mg PO DAILY #90 tablet 03/13/20 07/03/20 Rx losartan 50 mg tablet 50 mg PO DAILY 04/03/20 07/03/20 History pantoprazole 40 mg tablet,delayed 20 mg PO QAM 04/03/20 07/03/20
[2020-07-03] MEDS: SODIUM CHLORIDE 0.9% IV 500 ML 100 ML (11:50)
--- NOTE | 2020-07-03 13:58 | ECG_ITS ---
Measurements Intervals [place] Rate: 63 P: 257 MS: 204 QRS: 63 QRSD: 85 T: 65 QT: 439 QTc: 450 Interpretive Statements ELECTRONIC ATRIAL PACEMAKER BORDERLINE ST ABNORMALITY- ANTEROLAT/HIGH LAT LEADS BASELINE ARTIFACT- V4 BORDERLINE ECG Electronically Signed On 07-03-2020 15:08:50 CDT by Cristo Hernández D.O.
--- NOTE | 2020-07-03 14:02 | PM.OP ---
Procedure Note - Brief Procedure Note - Brief Date of procedure: 07/03/20 Pre-op diagnosis: Symptomatic Bradycardia sick sinus syndrome, sinus node dysfunction Procedure performed: conscious sedation venogram implantation of a permanent dual-chamber pacing Description of procedure: uneventful dual-chamber pacemaker implant Implants: Pulse generator: Medtronic Barbara XT MRI, Model number [id number], Serial number [id number] Right atrial lead: Medtronic model number 5076-45, serial number [id number] Right ventricular lead: Medtronic model number 5076-52, serial number [id number] Anesthesia: local (w conscious sedation) Surgeon: Page Stoddard MD Complications: No immediate complications Condition: stable Disposition: observation
--- NOTE | 2020-07-03 14:07 | PM.PROC ---
Procedure Note - Detailed Date of procedure: 07/03/20 Pre-op diagnosis: Symptomatic Bradycardia Description of procedure: PROCEDURE PERFORMED: Conscious sedation Venogram Placement of a permanent dual-chamber pacemaker SITE: Left prepectoral area MEDICATIONS GIVEN IN [place] HEAD MATCHER: Ancef 1 gram IV piggyback CONSCIOUS SEDATION: Assessment: The patient has no history of anesthesia problems. The patient's oropharynx is clear. The patient was deemed to be a good candidate for conscious sedation. The patient had continuous hemodynamic monitoring during the procedure. Start time: 1228 pm Completion time: 1355 Total conscious sedation time: 87 min Medications: Versed 4 mg, Fentanyl 100 mcg IVP Trained observer: Anjum Barrientos RN Outcome: The patient tolerated the procedure well with no complications. PROCEDURE: After informed consent , the patient was brought to the laboratory specialist and the left prepectoral area was prepped and draped in usual fashion . The patient received preop antibiotic and conscious sedation . The left prepectoral area was anesthetized with lidocaine . A venogram was performed showing the course of the vein, and patency. Next a skin incision was made and carried down to the prepectoral fascia. Hemostasis was obtained using electrocautery . The pacer pocket was formed. The left subclavian vein was accessed Through the pocket with the micropuncture technique, and a J-tip guide wire was passed into the superior vena cava under fluoroscopic guidance . The needle was withdrawn and a sheath was placed over the wire. A 2nd wire was advanced into the inferior vena cava, the sheath withdrawn, and placed over 1 wire , which was withdrawn. The right ventricular lead was passed into the inferior vena cava under fluoroscopic guidance . The lead was then prolapsed through the tricuspid valve and advanced into the right ventricular apex. multiple sites were tried , even along the septum, as the R-wave sensing was poor and she had a lot of ventricular irritability. Eventually a good site was found. When suitable sensing and pacing thresholds were obtained, it was screwed into place. No extra cardiac stimulation was obtained using 10 volts. The sheath was withdrawn. Next, another safety sheath was passed over the Secondwire, the wire withdrawn, and the right atrial lead was passed into the inferior vena cava under fluoroscopic guidance. Right atrial lead was then pulled back to the level of the right atrium and manipulated into the right atrial appendage . When suitable sensing and pacing thresholds were obtained , it was screwed into place . No extra cardiac stimulation was obtained using 10 volts. The sheath was withdrawn. Both leads were secured to the prepectoral fascia using 2-0 silk over their respective sleeves. The pocket was cleansed with antibiotic containing solution . The pulse generator was introduced into the operative field, and both leads were secured into the generator . A gentle tug showed the leads were securely fastened. The device was introduced into the pocket common a stay stitch was applied to the prepectoral fascia with 4 0 silk. The subcutaneous tissues were closed in a double layer fashion with interrupted sutures, using 2-0 Vicryl suture , and the skin was closed in a continuous fashion using 4-0 Vicryl suture in a continuous fashion. The area was cleansed, and an Aquacel dressing was applied . The patient tolerated the procedure well with no complications. PACEMAKER INFORMATION: Pulse generator: Medtronic Georgiana XT DR MRI, Model number [id number], Serial number [id number] Right atrial lead: Medtronic model number 5076-45, serial number [id number] Right ventricular lead: Medtronic model number 5076-52, serial number [id number] PACEMAKER INFORMATION: Pulse generator: Right atrial lead: Right ventricular lead: MEASURED DATA: Right atrial: P-wave sensing 1.6 mV, threshold 0. 5 volts
--- NOTE | 2020-07-03 14:10 | SUR.PHASEII ---
BEGIN PHASE II RECOVERY. RETURNS TO [facility] S/P INSERTION OF PPM W/ DR. DELACRUZ. AWAKE AND ALERT ON ARRIVAL. DENIES CP OR SOB. DENIES PAIN TO SURGICAL SITE L. UPPER CHEST. AQUACELL DRESSING TO L. UPPER CHEST SITE C/D/I. NO BLEEDING OR HEMATOMA NOTED. NO EDEMA NOTED. REVIEWED BEDREST ACTIVITY RESTRICTIONS POST PPM AND L. ARM MOVEMENT RESTRICTIONS POST PPM. VOICED UNDERSTANDING. BEDREST UNTIL 0700 07/04. PACED ON MONITOR. VSS. POST PROCEDURE EKG AND PCXR TO BE COMPLETED. WILL MONITOR.
--- NOTE | 2020-07-03 15:10 | SUR.PHASEII ---
END PHASE II RECOVERY. PT. TO ENTER EXTENDED RECOVERY STATUS POST OUTPATIENT PPM INSERTION. TO REMAIN IN PRODUCT DELIVERY SPECIALIST 4 AT THIS TIME UNTIL BED ASSIGNMENT IN IMU FOR OVERNIGHT STAY. SEE PCS FOR FURTHER DOCUMENTATION. NO NEW CHANGES.
--- NOTE | 2020-07-03 15:11 | ADMGEN ---
This patient, Bekah Gore, was admitted to EXTENDED RECOVERY AFTER OUTPATIENT INSERTION OF PPM W/ DR. DELACRUZ TODAY. REMAINS IN RAIL TRANSPORTATION OPERATOR 4 AT THIS TIME. AWAIT BED ASSIGNMENT IN IMU FOR OVERNIGHT STAY. Patient/family oriented to hospital policies and general routines including ID bracelet, bed and alarms, visiting hours, pain management, procedures, bathroom and other care routines, personal items, smoking policy, room service/diet, and visiting hours. Information on how to activate the Rapid Response Team has been discussed. Patient/Family are encouraged to report perceived risks to care and to ask questions if they do not understand what they are told or what they should do.
--- NOTE | 2020-07-03 18:25 | PC.NURSE ---
PT. HAS BEEN ASSIGNED TO BED IN IMU, 211, FOR REMAINDER OF EXTENDED RECOVERY STAY AFTER INSERTION OF PPM TODAY. PT. AND NOTIFIED OF ROOM NUMBER AND PLAN. REPORT CALLED TO LA Wilkes RN IN IMU.
--- NOTE | 2020-07-03 18:45 | PC.NURSE ---
TRANSFERRED FROM [facility] TO IMU 211 VIA BED WITH ALL PERSONAL BELONGINGS FOR REMAINDER OF EXTENDED RECOVERY STAY AFTER PPM INSERTION TODAY. REMAINS ON BEDREST UNTIL 0700 07/04. PT IS AWARE. SLING IS ON L. ARM FOR SUPPORT. ICE PACK IS OVER SITE L. UPPER CHEST FOR COMFORT. ALL ACTIVITY RESTRICTIONS RE: POST PPM PLACEMENT HAVE BEEN REVIEWED W/ PT TODAY AND VOICES UNDERSTANDING. VSS. MONITOR PACED.
--- NOTE | 2020-07-03 18:55 | PC.NURSE ---
This patient, Bkeah Gore, was received from [chest pain center] on 07/03/20 at 1855. REPORT RECEIVED FROM MARIA ANTONIA WISE. Personal belongings list checked and signed. Patient/family oriented to unit policies and routines
[2020-07-04 02:00] VITALS: PULSE 60
[2020-07-04 03:55] VITALS: BP 128/65; PULSE 60; RESP 18; TEMP 36.1; O2SAT 97
[2020-07-04 05:23] VITALS: PULSE 60
[2020-07-04 08:00] VITALS: BP 133/65; PULSE 60; RESP 18; TEMP 36.1; O2SAT 97
--- NOTE | 2020-07-04 09:00 | PM.DS ---
DS: Admitting Diagnosis Admitting Diagnosis Admitting Diagnosis: Symptomatic Bradycardia DS: Discharge Diagnosis Discharge Diagnosis (1) Sinus node dysfunction: Code(s): I49.5 - Sick sinus syndrome Status: Acute (2) S/P cardiac pacemaker procedure: Code(s): Z95.0 - Presence of cardiac pacemaker Status: Acute DS: Summary Hospital Course Reason for hospitalization: Sick sinus syndrome and chronotropic incompetance. Hospital Course: Pt is followed by Dr. Shelley and was found to have symptomatic sinus node dysfunction and chronotropic incompetance. She underwent an uneventful placement of a dual chamber Medtronic pacemaker yesterday and recovered nicely. She was given wound care and activity instructions. She will be discharged to follow up in our office for her incision and pacemaker. Status at Discharge Functional status at discharge: independent ambulation Time Spent with Patient Time attestation: Total time spent providing and/or coordinating discharge services: < 30 minutes Time spent: Less than 30 minutes DS: Data Data Completed and Pending Labs on day of discharge: Labs from last 24 hours 07/03/20 07/03/20 07/03/20 10:26 10:26 10:26 WBC 7.1 RBC 4.98 Hgb 14.0 Hct 42.7 MCV 85.7 MCH 28.1 MCHC 32.8 RDW 13.2 Plt Count 217 MPV 10.6 H Immature Gran % (Auto) 0.1 Neut % (Auto) 61.3 Lymph % (Auto) 26.8 [place] % (Auto) 6.5 Eos % (Auto) 4.6 H Baso % (Auto) 0.7 Lymph # (Auto) 1.91 [place] # (Auto) 0.5 Eos # (Auto) 0.3 Baso # (Auto) 0.1 Abs Immat Gran (auto) 0.01 Absolute Neuts (auto) 4.4 Absolute Nucleated RBC 0.0 Nucleated RBC % 0.0 PT 12.4 INR 1.0 Sodium 139 Potassium 4.3 Chloride 105 Carbon Dioxide 26 Anion Gap 8 BUN 23 H Creatinine 1.10 H Estim Creat Clear Calc 36 Estimated GFR 48 L Glucose 128 H Calcium 9.3 CXR showed good lead placement and no pneumothorax. Pacemaker interogation showed normal pacemaker function. Discharge Plan Discharge Patient Disposition: Home, Self-Care Discharge Instructions: Follow up with [facility] in 1 week for the nurse to remove the Aquacel bandage, check incision and check the pacemaker. --Keep the special Aquacel dressing on the incision until it is removed by [facility] nurse on your follow-up visit --Keep the dressing clean and dry; no showering above the waist, or swimming until it is removed next week --A small amount of tenderness, puffiness and bruising around the site is normal. Call if any significant pain, drainage, swelling, or redness around the site. --No lifting > 15 pound or exercise with the affected arm for 4 weeks. --Keep the affected arm below shoulder height for 4 weeks. --DO NOT TOUCH OR RUB THE INCISION. No lotions or ointments on the incision. Patient Instructions: Pacemaker (DC) Discharge Medications: Continued amlodipine 10 mg tablet 10 mg PO DAILY Qty: 90 RF: 3 losartan 50 mg tablet 50 mg PO DAILY RF: 0 pantoprazole [Protonix] 40 mg tablet,delayed release (DR/EC) 20 mg PO QAM RF: 0 calcium carbonate [Calcium 500] 500 mg calcium (1,250 mg) Tablet 500 mg PO DAILY RF: 0 ascorbic acid (vitamin C) [Vitamin C] 250 mg Tablet 250 mg PO DAILY RF: 0 zinc 50 mg Tablet 50 mg PO DAILY RF: 0 vitamin B complex Capsule 1 cap PO DAILY RF: 0 turmeric 400 mg Capsule 400 mg PO DAILY RF: 0 hydrochlorothiazide 12.5 mg Capsule 12.5 mg PO DAILY RF: 0 Primary Care Provider: Truong Chavarria Discharge Date/Time: 07/04/20 12:58 Attending physician on admission: Page Stoddard
[2020-07-04] MEDS: LOSARTAN POTASSIUM 50 MG TABLET PO (09:22)
[2020-07-04] MEDS: hydroCHLOROthiazide 12.5 MG CAPSULE PO (09:22)
[2020-07-04] MEDS: PANTOPRAZOLE SOD SESQUIHYDRATE 20 MG TAB PO (09:22)
[2020-07-04 10:00] VITALS: PULSE 73
--- NOTE | 2020-07-04 11:30 | PM.PNCARD ---
Progress Note: A&P Additional Plan 74-year-old female with sick sinus syndrome symptomatic bradycardia with chronotropic incompetence. Doing well following implantation of dual-chamber pacemaker yesterday. Plan for discharge home today and follow-up in the office next week for pacemaker wound incision check and dressing removal Angus Marr MD [facility] Subjective Date/time seen: date of service:07/04/20 11:30 Interval history: Follow-up visit in this 74-year-old lady with a history of sick sinus syndrome admitted yesterday for elective outpatient implantation of pacemaker. Today is postop day 1. Following pacemaker implant patient is doing well and is asymptomatic. Hoping to be discharged. Exam Const: General: comfortable and no acute distress HENMT: Mouth: Yes moist mucous membranes Eyes: Sclera: sclerae normal Pupils: Equal, round and reactive pupils present Neck: Neck: supple and no JVD Resp: Effort & Inspection: normal respiratory effort Auscultation: clear to auscultation bilaterally Other: Pacemaker dressing is clean and dry no swelling no discharge Cardio: Rate: regular rate Rhythm: regular rhythm GI: Auscultation: normal bowel sounds Skin: General skin exam: normal color Neuro: Cognition (Neuro): normal cognition Extrem: General: normal to inspection Objective Data Vital Signs Vital Signs: Vital Signs - 24 hr 07/03/20 14:15 07/03/20 14:30 07/03/20 14:45 Temperature 36.5 C Pulse Rate 74 59 L 60 Respiratory Rate 14 16 16 Blood Pressure 119/69 138/71 135/62 Pulse Oximetry 98 96 96 07/03/20 14:50 07/03/20 15:00 07/03/20 15:30 Temperature Pulse Rate 61 61 60 Respiratory Rate 18 19 Blood Pressure 127/63 117/96 H Pulse Oximetry 97 95 07/03/20 16:00 07/03/20 17:00 07/03/20 18:00 Temperature 37.1 C Pulse Rate 64 63 60 Respiratory Rate 18 18 16 Blood Pressure 151/62 H 152/62 H 136/63 Pulse Oximetry 99 97 97 07/03/20 19:00 07/03/20 19:03 07/03/20 19:59 Temperature 37.1 C 36.3 C L Pulse Rate 60 61 60 Respiratory Rate 16 18 Blood Pressure 144/63 H 145/57 H Pulse Oximetry 98 99 07/03/20 20:00 07/03/20 22:00 07/03/20 23:28 Temperature 36.6 C Pulse Rate 60 60 60 Respiratory Rate 18 18 Blood Pressure 124/51 L Pulse Oximetry 99 97 07/04/20 02:00 07/04/20 03:55 07/04/20 05:23 Temperature 36.1 C L Pulse Rate 60 60 60 Respiratory Rate 18 Blood Pressure 128/65 Pulse Oximetry 97 07/04/20 08:00 07/04/20 10:00 Temperature 36.1 C L Pulse Rate 60 73 Respiratory Rate 18 Blood Pressure 133/65 Pulse Oximetry 97 Intake/Output Intake/Output: Intake & Output 07/01/20 07/02/20 07/03/20 07/04/20 23:59 23:59 23:59 23:59 Intake Total 490 170 Output Total 500 1300 Balance -10 -8230 Meds/Results Medications: Active Medications Generic Name Dose Route Start Last Admin Trade Name Freq PRN Reason Stop Dose Admin Hydrocodone Bitart/Acetaminophen 1 tab 07/03/20 13:57 07/03/20 20:17 [place] 5-325 Mg PO 1 tab Q6H PRN Administration Pain Rated 1-3 Hydrocodone Bitart/Acetaminophen 2 tab 07/03/20 13:57 [place] 5-325 Mg PO Q6H PRN Pain Rated 4-6 Hydrochlorothiazide 12.5 mg 07/04/20 09:00 07/04/20 09:22 Hydrochlorothiazide PO 12.5 mg DAILY GOMEZ Administration Losartan Potassium 50 mg 07/04/20 09:00 07/04/20 09:22 Cozaar PO 50 mg DAILY GOMEZ Administration Pantoprazole Sodium 20 mg 07/04/20 09:00 07/04/20 09:22 Protonix PO 20 mg QAM GOMEZ Administration Radiology Results: ITS Impressions Chest X-Ray 07/04/20 08:49 IMPRESSION: 1. Mild atelectasis in left lower lung zone.
== END 2020-07-04 12:58 | disposition home or self-care (01) ==
LOC: ANHCATHLAB 10:09 → ANHIMU 17:59
PROVIDERS: PCP Internal Medicine; Visit Provider Internal Medicine Cardiovascular Disease
PROC: 0JH606Z Insertion of Pacemaker, Dual Chamber into Chest Subcutaneous Tissue and Fascia, Open Approach (ICD-10-PCS; CPT 33208; principal; 2020-07-03 11:30)
DX: I49.5 Sick sinus syndrome (principal); R06.02 Shortness of breath; I35.0 Nonrheumatic aortic (valve) stenosis; I10 Essential (primary) hypertension; E78.5 Hyperlipidemia, unspecified; J45.909 Unspecified asthma, uncomplicated; Z85.3 Personal history of malignant neoplasm of breast; Z87.891 Personal history of nicotine dependence; Z92.3 Personal history of irradiation
CPT/HCPCS: 33208; 36415; 71045; 71046; 80048; 85025; 85610; 93005; A4565; A9270; C1779; C1785; J0690; J2250; J3010; J7040

== ENCOUNTER 2020-09-27 01:40 | Outpatient (CLI) | payer MEDICARE, SELFPAY ==
[2020-09-27 19:09] LABS: SARS-CoV-2 RNA PCR Negative
== END 2020-09-27 01:41 | disposition home or self-care (01) ==
LOC: ANHCOVIDDT 01:41
PROVIDERS: PCP Internal Medicine; Visit Provider Surgery
DX: Z01.818 Encounter for other preprocedural examination (principal); Z20.828 Contact with and (suspected) exposure to other viral communicable diseases
CPT/HCPCS: 36415; 80048; 87635; C9803; U0003

== ENCOUNTER 2020-09-27 06:54 | Outpatient (CLI) | payer MEDICARE, SELFPAY ==
[2020-09-27 08:09] LABS: Anion Gap 6 mmol/L (8-16); Blood Urea Nitrogen 24 mg/dL (7-17); Calcium 9.4 mg/dL (8.4-10.2); Carbon Dioxide 33 mmol/L (22-30); Chloride 101 mmol/L (98-107); Estimated Glomerular Filt Rate 44; Glucose 143 mg/dL (65-105); Potassium 4.2 mmol/L (3.4-5.0); Sodium 140 mmol/L (137-145)
== END 2020-09-27 06:55 | disposition home or self-care (01) ==
PROVIDERS: PCP Internal Medicine; Visit Provider Anesthesiology
DX: Z01.818 Encounter for other preprocedural examination (principal); Z79.899 Other long term (current) drug therapy
CPT/HCPCS: 36415; 80048

== ENCOUNTER 2020-09-30 01:16 | Day surgery (SDC) | payer MEDICARE, SELFPAY ==
[2020-09-26 08:21] VITALS: BMI 27.5
--- NOTE | 2020-09-30 08:22 | WPDANESEPPF ---
Anes - Initial Pre Proc Eval Procedure: Operation Date: 09/30/20 10:30 Proposed Procedures p Excision Anterior Neck Cyst - Aureliano Torres DO Date/Time: 09/30/20 08:22 Surgeon: Aureliano Torres DO Pre Op Diagnosis: 2cm anterior neck cyst Patient Data Age: 74 Gender: F Height: 1.65 m Weight: 75 kg Allergies Allergy/AdvReac Type Severity Reaction Status Date / Time No Known Allergies Allergy Verified 09/30/20 08:32 Home Medications Medication Instructions Recorded Confirmed Type ascorbic acid (vitamin C) [Vitamin 250 mg PO DAILY 03/04/20 09/30/20 History C] calcium carbonate [Calcium 500] 500 mg PO DAILY 03/04/20 09/30/20 History vitamin B complex 1 cap PO DAILY 03/04/20 09/30/20 History zinc 50 mg PO DAILY 03/04/20 09/30/20 History amlodipine 10 mg tablet 10 mg PO DAILY #90 tablet 03/13/20 09/30/20 Rx losartan 50 mg tablet 50 mg PO DAILY 04/03/20 09/30/20 History pantoprazole 40 mg tablet,delayed 20 mg PO QAM 04/03/20 09/30/20 History release hydrochlorothiazide 12.5 mg PO DAILY 07/02/20 09/30/20 History Patient hx anesthesia problems: none Family hx anesthesia problems: none [facility] Past Medical History Medical History (Updated 09/30/20 @ 09:17 by Karl Delgadillo DO) Aortic stenosis mild Asthma Breast cancer 2010, treated with lumpectomy and adjuvant radiotherapy GERD (gastroesophageal reflux disease) Hypertension dx about 2009 Surgical History Surgical History H/O lumpectomy 2010 S/P cardiac pacemaker procedure Medtronic pacemaker for sinus node dysfunction Family History Family History Father Hypertension Family history of coronary artery disease Family history of malignant neoplasm Patient's father is Grandparent Cerebrovascular accident Mother Carcinoma of colon Family history of malignant neoplasm Patient's mother is Sibling Patient's sister is in good health Patient's brother is in good health Social History Social History Years smoked: 10 Smoking status: Former smoker Tobacco type: cigarettes Second hand tobacco smoke exposure: Yes Smoking end date: 11/07/82 Additional smoking assessment comments: STATES 1PK/DAY-QUITE 40+ YRS AGO Alcohol intake: current Drinks per week: 4 Substance use: never Substance use type: does not use Last use: 1981 Living arrangements: with family Additional living arrangements comments: Resides with spouse Gender identity (if verbalized by the patient): Female Spiritual care concerns: No Agree to blood products: Yes Anes - Eval Final PreProcedure Day of Procedure 09/30/20 08:22 Patient weight: overweight Heart: regular rate and rhythm Lungs: clear to auscultation and normal air movement Airway: Mallampati scale class 1 Neurological: alert and oriented Last oral intake: >/= 8 hours ASA classification: III Emergent: no Anesthetic plan: proceed Anesthesia type and monitoring: general GIVS and standard monitoring Informed Consent: The patient's anesthetic plan and its attendant risks and benefits were discussed with the patient/family/POA. Questions were solicited and answers provided to the satisfaction of the patient/family/POA.
[2020-09-30 08:29] VITALS: BP 155/73; PULSE 102; RESP 20; TEMP 36.4; O2SAT 98
[2020-09-30] MEDS: LACTATED RINGERS 1,000 ML 30 ML IV CONT (08:50)
--- NOTE | 2020-09-30 11:09 | SUR.PREOP ---
1100-PT AWARE SURGEON DELAYS SELF 1 HOUR.
--- NOTE | 2020-09-30 11:16 | WPDHPUPDATE1 ---
History and Physical Update Update Date/Time: 09/30/20 11:16 History and Physical has been reviewed, including an updated exam of the patient. There are NO changes in the patient's condition. Risks, benefits, and alternatives have been discussed and questions answered. Patient agrees to proceed with procedure.
[2020-09-30] MEDS: ceFAZolin 2 GM/D5W 50 ML 2 GM/50 ML BAG IVPB (11:45)
--- NOTE | 2020-09-30 11:48 | SUR.PREOP ---
1125-PT UP TO VOID.
[2020-09-30] MEDS: LIDO 1%/EPINEPHRINE 1:100,000 20 ML VIAL 7 ML INFILTRATE (12:04)
--- NOTE | 2020-09-30 12:07 | P.OP_ITS ---
Procedure Note - Detailed Date of procedure: 09/30/20 Pre-op diagnosis: 2cm anterior neck cyst Post-op diagnosis: same Procedure performed: 1. Excision of 2 cm anterior midline neck cyst 2. Layered closure Description of procedure: * Procedure as well as risks, benefits, and alternatives were discussed with the patient. Written consent was obtained and placed in chart prior to procedure. Patient was brought back to surgical suite. She was placed supine on operating table. Time-out was done to confirm patient and procedure. IV sedation was then administered by the Anesthesia Department. Her neck area was prepped and draped in sterile fashion using chlorhexidine prep. 1% lidocaine with epinephrine was infiltrated locally around the neck cyst. A 2 cm elliptical incision was made around the cyst using a 15 blade scalpel. The cyst was sharply excised using the 15 blade scalpel. The cyst was completely excised intact and was sent to the lab for pathology. Pressure was applied and hemostasis appeared adequate. The deep tissue was then reapproximated using 3 0 Vicryl simple interrupted sutures and then the skin was approximated using 4 Monocryl running subcuticular suture. Exofin glue was then applied on top. The patient was then awakened from anesthesia and transferred to recovery. Anesthesia: MAC and local (1% lidocaine with epinephrine) Surgeon: Aureliano Torres DO Estimated blood loss (mL): 5 Pathology: yes (Neck cyst) Complications: No immediate complications Condition: stable Disposition: same day Findings: This is a 74-year-old woman who presented with a swollen neck mass on her midline anterior neck. She had noticed this is a small pea-sized nodule that gradually increased in size over time. It also began draining a white material. She was found to have a mobile subcutaneous cyst, and discussions were made with the patient about treatment options. Decision was made to proceed with excision of the 2 cm neck cyst. Excision of 2 cm anterior midline neck cyst was performed. An elliptical incision was made to excise the cyst completely. This appeared to be a subcu inclusion cyst in did not appear to communicate with any deeper midline neck structures. The incision was then closed in layers using 3 0 Vicryl deep dermal sutures followed by 4 0 Monocryl running subcuticular suture.
[2020-09-30 12:14] VITALS: BP 101/42; PULSE 66; RESP 16; O2SAT 100
[2020-09-30 12:45] VITALS: BP 99/40; PULSE 59; RESP 18
[2020-09-30 13:15] VITALS: BP 125/64; PULSE 59; RESP 20
== END 2020-09-30 13:30 | disposition home or self-care (01) ==
PROVIDERS: PCP Internal Medicine; Visit Provider Surgery
PROC: (CPT 11422; principal; 2020-09-30 10:30)
DX: L72.0 Epidermal cyst (principal); I10 Essential (primary) hypertension; K21.9 Gastro-esophageal reflux disease without esophagitis; J45.909 Unspecified asthma, uncomplicated; I35.0 Nonrheumatic aortic (valve) stenosis; Z85.3 Personal history of malignant neoplasm of breast; Z92.3 Personal history of irradiation; Z95.0 Presence of cardiac pacemaker; Z87.891 Personal history of nicotine dependence
CPT/HCPCS: 11422; 12041; 88304; 88305; A9270; J0690; J2704; J3010; J7120

== ENCOUNTER 2021-11-30 08:13 | Outpatient (CLI) | payer MEDICARE, SELFPAY ==
--- NOTE | 2021-12-03 22:23 | WPDHOMESLEEP ---
Sleep Study - Home Unattended Date of Study: 11/30/21 <Renetta Yadav DO - Last Filed: 12/04/21 11:27> Ordering Provider: Alin Shelley MD <Renetta Yadav DO - Last Filed: 12/04/21 11:27> Interpreting Provider: Renetta Yadav DO <Renetta Yadav DO - Last Filed: 12/04/21 11:27> Home Sleep Study Type: Apnea Link Air <Renetta Yadav DO - Last Filed: 12/04/21 11:27> Height: 1.65 m <Renetta Yadav DO - Last Filed: 12/04/21 11:27> Weight: 73.936 kg <Renetta Yadav DO - Last Filed: 12/04/21 11:27> Body Mass Index: 27.1 <Renetta Yadav DO - Last Filed: 12/04/21 11:27> Neck Circumference (inches): 16 <Renetta Yadav DO - Last Filed: 12/04/21 11:27> [place]: 6 <Renetta Yadav DO - Last Filed: 12/04/21 11:27> Reason for Sleep Study Daytime sleepiness <Renetta Yadav DO - Last Filed: 12/04/21 11:27> Sleep History The patient is a 75-year-old female with asthma, hypertension, GERD, bradycardia with pacemaker, paroxysmal atrial fibrillation, aortic stenosis and hyperlipidemia that had a HSAT ordered by her clerk television production for evaluation of sleep apnea. the patient denies awakening from sleep short of breath. She occasionally awakens at night with heartburn, belching or cough. She occasionally snores but it is rarely lower not fat is complain. Agustin Hester has trouble sleeping when she has a cold. She occasionally sweats excessively at night. She denies waking up gasping for air throughout the night. She frequently notices heart palpitations or irregular heartbeats during the night. She frequently falls asleep during the day but never while driving. She occasionally has trouble at school or work due to sleepiness. She denies sleep paralysis and cataplexy. She occasionally experiences vivid dream leg seems upon awakening or falling asleep. She occasionally has nightmares. She frequently has thoughts racing through her mind. Slow she occasionally feels sad, depressed or anxious. She denies noticing parts of her body jerks. She rarely kicks during the night. She denies having crawling and aching feelings in her legs. She rarely has leg pain during the night. She occasionally grinds her teeth during sleep but rarely awakens with morning job pain. She is occasionally bothered by pain during the day and occasionally awakened by pain during the night. Agustin Anderson wakes up with sore or achy muscles. She occasionally wakes up feeling stiff in the morning. She occasionally wakes up with pain in the neck, spine and other joints. She goes to bed between 9 and 10:00 p.m. on both weekdays and weekends. It takes her 10 minutes to fall asleep. She wakes up 3-4 times per night to use the restroom. she wakes up between 6 and 7:00 a.m. on both weekdays and weekends. She gets between 8 and 9 hours of sleep per night. She will stay in bed for 1 hour after waking up in the morning. She currently lives with her . She denies consuming any caffeinated beverages within 2 hours of bedtime. She does not engage in physical exercise before bedtime. She will watch television before falling asleep. He occasionally takes naps in the afternoon or the evening but they are not refreshing. She drinks 1-2 cups of caffeinated beverage per day. She quit smoking cigarettes 40 years ago. She occasionally consumes alcohol. She denies recreational drug use. <Renetta Yadav DO - Last Filed: 12/04/21 11:27> [facility] Past Medical History Medical History: Medical History Aortic stenosis mild Asthma Breast cancer 2010, treated with lumpectomy and adjuvant radiotherapy GERD (gastroesophageal reflux disease) Hypertension dx about 2009 <Renetta Yadav DO - Last Filed: 12/04/21 11:27> Surgical History Surgical History: Surgical History (Reviewed 12/03
[2021-12-04 11:27] VITALS: BMI 27.1
== END 2021-12-01 12:23 | disposition home or self-care (01) ==
LOC: ANHCSM 08:13
PROVIDERS: PCP Internal Medicine; Visit Provider Internal Medicine Cardiovascular Disease
DX: G47.10 Hypersomnia, unspecified (principal); G47.33 Obstructive sleep apnea (adult) (pediatric)
CPT/HCPCS: 95806

== ENCOUNTER 2022-06-14 08:06 | Outpatient (CLI) | payer MEDICARE, SELFPAY ==
--- NOTE | ~2022-06-14 | US_ITS ---
US right upper quadrant INDICATION: Right upper quadrant pain. PROCEDURE: Realtime right upper abdominal ultrasound. COMPARISON: No prior studies for comparison. FINDINGS: The pancreas is normal without focal mass or pancreatic ductal dilation. Liver echotexture is normal without focal mass or intrahepatic biliary dilatation. There is normal directional flow i n the portal vein. The gallbladder is normal without stones, gallbladder wall thickening or pericholecystic fluid. There is gallbladder sludge. Common bile duct measures 6 mm. No sonographic Kaplan's sign. IMPRESSION: 1: Gallbladder sludge. Reviewed, dictated and finalized at location A. IMPRESSION: 1: Gallbladder sludge.
[2022-06-14 09:42] LABS: Basophils Absolute Auto 0.1 K/mm3 (0.0-0.1); Basophils Percent Auto 0.5 % (0.2-1.2); Eosinophils Absolute Auto 0.4 K/mm3 (0-0.3); Eosinophils Percent Auto 3.8 % (0-4.4); Hematocrit 41.4 % (37.0-47.0); Hemoglobin 12.8 g/dL (12.0-15.0); Immature Granulocyte Absolute 0.12 K/mm3 (0.00-0.031); Immature Granulocyte Percent A 1.2 % (0-0.5); Lymphocytes Absolute Auto 1.36 K/mm3 (0.9-3.2); Lymphocytes Percent Auto 13.3 % (18.3-44.2); Mean Corpuscular HGB Conc 30.9 g/dl (32-36); Mean Corpuscular Hemoglobin 27.2 pg (26-34); Mean Corpuscular Volume 88.1 fl (80-100); Mean Platelet Volume 10.3 fl (7.4-10.4); Monocytes Absolute Auto 0.6 K/mm3 (0.1-0.6); Monocytes Percent Auto 6.1 % (2.6-8.5); Neutrophils Absolute Auto 7.7 K/mm3 (1.3-6.7); Neutrophils Percent Auto 75.1 % (45.5-73.1); Platelet Count Result 214 k/mm3 (150-375); Red Cell Distribution Width 14.4 % (11.5-14.5); White Blood Count 10.2 K/mm3 (4.5-10.0)
[2022-06-14 10:06] LABS: Alanine Aminotransferase 13 U/L (6-35); Albumin Level 3.9 g/dL (3.5-5.1); Alkaline Phosphatase 91 U/L (38-126); Anion Gap 8 mmol/L (8-16); Aspartate Amino Transferase 16 U/L (14-36); Bilirubin,Total 0.3 mg/dL (0.2-1.3); Blood Urea Nitrogen 24 mg/dL (7-17); Calcium 8.5 mg/dL (8.4-10.2); Carbon Dioxide 28 mmol/L (22-30); Chloride 102 mmol/L (98-107); Cholesterol 259 mg/dL (0-200); Estimated Glomerular Filt Rate 54; Glucose 170 mg/dL (65-110); HDL Direct 45 mg/dL; Potassium 4.3 mmol/L (3.4-5.0); Sodium 138 mmol/L (137-145); Triglycerides 370 mg/dL (<150)
[2022-06-14 10:18] LABS: LDL Cholesterol Direct 84 mg/dL
[2022-06-14 10:20] LABS: Vitamin D 25 Hydroxy 51.4 ng/mL
[2022-06-14 12:08] LABS: Hemoglobin A1C 7.3 % (<5.7)
== END 2022-06-14 08:07 | disposition home or self-care (01) ==
PROVIDERS: PCP Internal Medicine; Visit Provider Clinical Nurse Specialist
DX: R10.11 Right upper quadrant pain (principal); I10 Essential (primary) hypertension; E55.9 Vitamin D deficiency, unspecified; R73.9 Hyperglycemia, unspecified
CPT/HCPCS: 36415; 76705; 80053; 80061; 82306; 83036; 84443; 85025

== ENCOUNTER 2022-07-08 08:30 | Outpatient (CLI) | payer MEDICARE, SELFPAY ==
--- NOTE | ~2022-07-08 | CT_ITS ---
EXAMINATION:CT diagnostic chest w con DATE: 07/08/2022 09:12 INDICATION: Solitary pulmonary nodule. TECHNIQUE: Computed tomography (CT) of the chest was performed with 75 mL Omnipaque 350 intravenous c ontrast. Automated exposure control and iterative reconstruction technique were employed. The dose-le ngth product (DLP) was 205.25 mGy-cm. COMPARISON: Chest 2 views 07/04/2020 FINDINGS: There is mild peripheral radiation fibrosis in anterior right lung. There is mild atelectas is bilaterally. There are is tree-in-bud opacities and small airspace opacities involving apicoposter ior segment left upper lobe and superior segment left lower lobe, consistent with pneumonia. There ar e a few nodules in the lungs measuring up to 3 mm, likely benign. No pleural effusion. The heart size is normal. No pericardial effusion. There is a left chest pacer with leads in right atrium and right ventricle. There is old fat necrosis in right breast. There is a 20 mm cyst in right kidney. There i s severe cervical spondylosis and mild thoracic spondylosis. IMPRESSION: 1. Mild pneumonia in left lung. Reviewed, dictated and finalized at location A.
== END 2022-07-08 08:31 | disposition home or self-care (01) ==
PROVIDERS: PCP Internal Medicine; Visit Provider Clinical Nurse Specialist
DX: R91.1 Solitary pulmonary nodule (principal); J18.9 Pneumonia, unspecified organism
CPT/HCPCS: 71260; Q9967

== ENCOUNTER 2022-07-14 00:53 | Day surgery (SDC) | payer MEDICARE, SELFPAY ==
[2022-07-01 08:19] VITALS: BMI 26.6
--- NOTE | 2022-07-14 07:27 | PM.HPGS ---
History of Present Illness History of Present Illness Consent: Risks, benefits, and alternatives have been discussed and questions answered. Patient agrees to proceed with procedure. Chief complaint: dysphagia, hx colon polyps Narrative: Bekah Gore is a 76 year old female was having difficulty with swallowing. She has had prior EGD about 5 years ago and 3 years ago but no stricture was seen. She had been found to have reflux esophagitis.She also has a history of polyps having had 2 polyps removed 5 years ago. Her mother had colon cancer Review of Systems Review of Systems: All systems reviewed & are unremarkable except as noted in HPI and below PMFSH Past Medical History Medical History Aortic stenosis mild Asthma Breast cancer 2010, treated with lumpectomy and adjuvant radiotherapy GERD (gastroesophageal reflux disease) Hypertension dx about 2009 Surgical History Surgical History H/O lumpectomy 2010 S/P cardiac pacemaker procedure Medtronic pacemaker for sinus node dysfunction Family History Family History Father Hypertension Family history of coronary artery disease Family history of malignant neoplasm Patient's father is Grandparent Cerebrovascular accident Mother Carcinoma of colon Family history of malignant neoplasm Patient's mother is Sibling Patient's sister is in good health Patient's brother is in good health Social History Social History Years smoked: 10 Smoking status: Former smoker Tobacco type: cigarettes Second hand tobacco smoke exposure: Yes Smoking end date: 11/07/82 Additional smoking assessment comments: STATES 1PK/DAY-QUITE 40+ YRS AGO Alcohol intake: current Drinks per week: 1 Alcohol use details: Occasional red wine. Occasional gin and tonic when her sister visits. Substance use: never Substance use type: does not use Living arrangements: with family Additional living arrangements comments: Resides with spouse Gender identity (if verbalized by the patient): Female Spiritual care concerns: No Agree to blood products: Yes Meds Home Medications and Allergies Home Medications Medication Instructions Recorded Confirmed Type ascorbic acid (vitamin C) 250 mg 250 mg PO DAILY 03/04/20 07/01/22 History tablet (Vitamin C) calcium carbonate 500 mg calcium 500 mg PO DAILY 03/04/20 07/01/22 History (1,250 mg) tablet (Calcium 500) vitamin B complex 1 cap PO DAILY 03/04/20 07/01/22 History zinc 50 mg tablet 50 mg PO DAILY 03/04/20 07/01/22 History hydrochlorothiazide 12.5 mg capsule 12.5 mg PO DAILY 07/02/20 07/01/22 History amlodipine 10 mg tablet 10 mg PO DAILY #90 tabs 09/18/21 07/01/22 Rx losartan 50 mg tablet 50 mg PO DAILY #90 tabs 09/18/21 07/01/22 Rx pantoprazole 20 mg tablet,delayed See Rx Instructions .Route 04/19/22 07/01/22 Rx release .COMPLEX #90 tabs albuterol sulfate 90 mcg/actuation 1 inh inhalation Q4-6H PRN 05/31/22 07/01/22 Rx aerosol inhaler (ProAir HFA) shortness of breath or wheezing #18 grams cholecalciferol (vitamin D3) 125 125 mcg PO DAILY 05/31/22 07/01/22 History mcg (5,000 unit) capsule (Dialyvite Vitamin D) triamcinolone acetonide 0.1 % 1 applic topical TID #30 grams 05/31/22 07/01/22 Rx topical cream amoxicillin 875 mg-potassium 1 tablet PO BID #20 tabs 07/08/22 07/14/22 Rx clavulanate 125 mg tablet azithromycin 250 mg tablet See Rx Instructions PO .COMPLEX #6 07/08/22 07/14/22 Rx tabs Allergies Allergy/AdvReac Type Severity Reaction Status Date / Time No Known Allergies Allergy Verified 07/14/22 09:46 Exam Const: General: alert Orientation/consciousness: patient oriented x3 Resp: Auscultation: clear
[2022-07-14 09:48] VITALS: BP 132/65; PULSE 81; RESP 18; TEMP 36.2; O2SAT 97; BMI 26.6
[2022-07-14] MEDS: LACTATED RINGERS 1,000 ML 150 ML IV CONT (09:58)
--- NOTE | 2022-07-14 10:20 | WPDANESEPPF ---
Anes - Initial Pre Proc Eval Procedure: Operation Date: 07/14/22 11:00 Proposed Procedures p Esophagogastroduodenoscopy & Screening Colonoscopy - Roque Thibodeaux MD Date/Time: 07/14/22 10:20 Surgeon: Roque Thibodeaux MD Pre Op Diagnosis: dysphagia, hx colon polyps Patient Data Age: 76 Gender: F Height: 1.68 m Weight: 74.9 kg Last Vital Signs Temp 97.2 F L 07/14/22 09:48 Pulse 81 07/14/22 09:48 Resp 18 07/14/22 09:48 BP 132/65 07/14/22 09:48 Pulse Ox 97 07/14/22 09:48 O2 Del Method Room Air 07/14/22 09:48 Allergies Allergy/AdvReac Type Severity Reaction Status Date / Time No Known Allergies Allergy Verified 07/14/22 09:46 Home Medications Medication Instructions Recorded Confirmed Type ascorbic acid (vitamin C) 250 mg 250 mg PO DAILY 03/04/20 07/01/22 History tablet (Vitamin C) calcium carbonate 500 mg calcium 500 mg PO DAILY 03/04/20 07/01/22 History (1,250 mg) tablet (Calcium 500) vitamin B complex 1 cap PO DAILY 03/04/20 07/01/22 History zinc 50 mg tablet 50 mg PO DAILY 03/04/20 07/01/22 History hydrochlorothiazide 12.5 mg capsule 12.5 mg PO DAILY 07/02/20 07/01/22 History amlodipine 10 mg tablet 10 mg PO DAILY #90 tabs 09/18/21 07/01/22 Rx losartan 50 mg tablet 50 mg PO DAILY #90 tabs 09/18/21 07/01/22 Rx pantoprazole 20 mg tablet,delayed See Rx Instructions .Route 04/19/22 07/01/22 Rx release .COMPLEX #90 tabs albuterol sulfate 90 mcg/actuation 1 inh inhalation Q4-6H PRN 05/31/22 07/01/22 Rx aerosol inhaler (ProAir HFA) shortness of breath or wheezing #18 grams cholecalciferol (vitamin D3) 125 125 mcg PO DAILY 05/31/22 07/01/22 History mcg (5,000 unit) capsule (Dialyvite Vitamin D) triamcinolone acetonide 0.1 % 1 applic topical TID #30 grams 05/31/22 07/01/22 Rx topical cream amoxicillin 875 mg-potassium 1 tablet PO BID #20 tabs 07/08/22 07/14/22 Rx clavulanate 125 mg tablet azithromycin 250 mg tablet See Rx Instructions PO .COMPLEX #6 07/08/22 07/14/22 Rx tabs Patient hx anesthesia problems: none Family hx anesthesia problems: none Results Review: All pre-operative results and documents have been reviewed as part of the pre-operative evaluation. [facility] Past Medical History Medical History Aortic stenosis mild Asthma Breast cancer 2010, treated with lumpectomy and adjuvant radiotherapy GERD (gastroesophageal reflux disease) Hypertension dx about 2009 Surgical History Surgical History H/O lumpectomy 2010 S/P cardiac pacemaker procedure Medtronic pacemaker for sinus node dysfunction Family History Family History Father Hypertension Family history of coronary artery disease Family history of malignant neoplasm Patient's father is Grandparent Cerebrovascular accident Mother Carcinoma of colon Family history of malignant neoplasm Patient's mother is Sibling Patient's sister is in good health Patient's brother is in good health Social History Social History Years smoked: 10 Smoking status: Former smoker Tobacco type: cigarettes Second hand tobacco smoke exposure: Yes Smoking end date: 11/07/82 Additional smoking assessment comments: STATES 1PK/DAY-QUITE 40+ YRS AGO Alcohol intake: current Drinks per week: 1 Alcohol use details: Occasional red wine. Occasional gin and tonic when her sister visits. Substance use: never Substance use type: does not use Living arrangements: with family Additional living arrangements comments: Resides with spouse Gender identity (if verbalized by the patient): Female Spiritual care concerns: No Agree to blood products: Yes Anes - Eval Final PreProcedure Day of Procedure 07/14/22 10:20
--- NOTE | 2022-07-14 10:53 | SUR.OPER ---
EGD end 1047 Colonoscopy start 105
[2022-07-14 11:10] VITALS: BP 90/36; PULSE 61; RESP 13; O2SAT 97
[2022-07-14 11:20] VITALS: BP 100/41; PULSE 61; RESP 13; O2SAT 100
[2022-07-14 11:30] VITALS: BP 106/45; PULSE 60; RESP 17; O2SAT 100
== END 2022-07-14 11:44 | disposition home or self-care (01) ==
PROVIDERS: PCP Internal Medicine; Visit Provider Internal Medicine Gastroenterology
PROC: 0DJ08ZZ Inspection of Upper Intestinal Tract, Via Natural or Artificial Opening Endoscopic (ICD-10-PCS; CPT 43235; principal; 2022-07-14 11:00)
DX: Z12.11 Encounter for screening for malignant neoplasm of colon (principal); R13.10 Dysphagia, unspecified; D12.5 Benign neoplasm of sigmoid colon; D12.3 Benign neoplasm of transverse colon; K21.9 Gastro-esophageal reflux disease without esophagitis; K57.30 Diverticulosis of large intestine without perforation or abscess without bleeding; I35.0 Nonrheumatic aortic (valve) stenosis; I10 Essential (primary) hypertension; Z85.3 Personal history of malignant neoplasm of breast; Z95.0 Presence of cardiac pacemaker; Z87.891 Personal history of nicotine dependence
CPT/HCPCS: 45385; 43239; 88305; J2704; J7120

== ENCOUNTER 2022-08-07 10:47 | Emergency (ER) | payer MEDICARE, SELFPAY ==
--- NOTE | 2022-08-07 10:56 | ED.SKABFB ---
HPI - Skin/Abscess/Foreign Bdy General Chief complaint: Skin/Abscess/Foreign Body Stated complaint: body rash Time Seen by Provider: 08/07/22 10:59 Source: patient and RN notes reviewed Mode of arrival: ambulatory Limitations: no limitations History of Present Illness HPI narrative: 76-year-old female presents concern for an itchy rash to her neck, face, hip that started yesterday. She reports the rash started after she spent time outside. Rash reports she had a similar rash in May after spending time outside. She reports she used her leftover triamcinolone cream that helped with the itching. She reports her lower lip feels swollen. She reports she used her albuterol inhaler earlier today because she felt like she was having trouble breathing. She reports she has been taking Benadryl every 6 hours complaint: rash Related Data Home Medications Medication Instructions Recorded Confirmed ascorbic acid (vitamin C) 250 mg 250 mg PO DAILY 03/04/20 07/01/22 tablet (Vitamin C) calcium carbonate 500 mg calcium 500 mg PO DAILY 03/04/20 07/01/22 (1,250 mg) tablet (Calcium 500) vitamin B complex 1 cap PO DAILY 03/04/20 07/01/22 zinc 50 mg tablet 50 mg PO DAILY 03/04/20 07/01/22 hydrochlorothiazide 12.5 mg capsule 12.5 mg PO DAILY 07/02/20 07/01/22 cholecalciferol (vitamin D3) 125 125 mcg PO DAILY 05/31/22 07/01/22 mcg (5,000 unit) capsule (Dialyvite Vitamin D) Allergies Allergy/AdvReac Type Severity Reaction Status Date / Time No Known Allergies Allergy Verified 07/14/22 09:46 Review of Systems Review of Systems: CONSTITUTIONAL: Denies malaise, chills, sweats, or fever. EYES: Denies redness, or discharge. ENT: Denies rhinorrhea, congestion, swollen tongue. Reports her bottom lip is swollen CARDIOVASCULAR: Denies chest pain, palpitations, or edema. RESPIRATORY: Denies cough. Reports feeling dyspnea this morning GASTROINTESTINAL: Denies abdominal pain, nausea, vomiting SKIN: Reports itchy rash on her neck, hip, face. Reports areas on her face have drainage MUSCULOSKELETAL: Denies joint pain or myalgia. NEUROLOGIC: Denies headache. All systems reviewed & are unremarkable except as noted in HPI and below PMFSH Past Medical History Medical History Aortic stenosis mild Asthma Breast cancer 2010, treated with lumpectomy and adjuvant radiotherapy GERD (gastroesophageal reflux disease) Hypertension dx about 2009 Surgical History Surgical History H/O lumpectomy 2010 S/P cardiac pacemaker procedure Medtronic pacemaker for sinus node dysfunction Family History Family History Father Hypertension Family history of coronary artery disease Family history of malignant neoplasm Patient's father is Grandparent Cerebrovascular accident Mother Carcinoma of colon Family history of malignant neoplasm Patient's mother is Sibling Patient's sister is in good health Patient's brother is in good health Social History Social History Years smoked: 10 Smoking status: Former smoker Tobacco type: cigarettes Second hand tobacco smoke exposure: Yes Smoking end date: 11/07/82 Additional smoking assessment comments: STATES 1PK/DAY-QUITE 40+ YRS AGO Alcohol intake: current Drinks per week: 1 Alcohol use details: Occasional red wine. Occasional gin and tonic when her sister visits. Substance use: never Substance use type: does not use Additional living arrangements comments: Resides with spouse Gender identity (if verbalized by the patient): Female Spiritual care concerns: No Agree to blood products: Yes Comments At time of signature, agree with nursing past medical, surgical, social and family history. There is no relevant fami
[2022-08-07 10:59] VITALS: BP 143/72; PULSE 82; RESP 20; TEMP 36.7; O2SAT 99
== END 2022-08-07 11:19 | disposition home or self-care (01) ==
PROVIDERS: Emergency Provider Nurse Practitioner; PCP Internal Medicine
DX: R21 Rash and other nonspecific skin eruption (principal); Z87.891 Personal history of nicotine dependence; I35.0 Nonrheumatic aortic (valve) stenosis; J45.909 Unspecified asthma, uncomplicated; Z85.3 Personal history of malignant neoplasm of breast; K21.9 Gastro-esophageal reflux disease without esophagitis; I10 Essential (primary) hypertension
CPT/HCPCS: 99213; G0463

== ENCOUNTER 2022-08-11 14:45 | Outpatient (CLI) | payer MEDICARE, SELFPAY ==
--- NOTE | ~2022-08-11 | MM_ITS ---
EXAMINATION: MM screening [facility] BI w estrellita HISTORY: Screening mammogram, history of right breast cancer TECHNIQUE: Craniocaudal and mediolateral oblique 3-D tomosynthesis images were obtained and synthetic 2-D images were generated. CAD analysis was submitted and interpreted. COMPARISON: 06/07/2017, 05/16/2017, 06/25/2016, 04/23/2014 BREAST PARENCHYMAL COMPOSITION: The breasts are almost entirely fatty. FINDINGS: Stable lumpectomy changes are present in the upper outer quadrant of the right breast. No s uspicious mass, calcification, or architectural distortion are identified in either breast to suggest malignancy. There has been no suspicious interval change. IMPRESSION: 1. No mammographic evidence of malignancy. 2. Recommend routine screening mammography in one year. BI-RADS Category 2: Benign finding(s). Reviewed, dictated and finalized at location A.
--- NOTE | ~2022-08-11 | DEXA_ITS ---
Bone Density Report Name: CLIFFORD PETTY Age: 76 Sex: Female Ethnicity: White Date of : 1945 Indication: postmenopausal; screening for osteoporosis; height loss; cancer; asthma or emphysema; Referring Provider: TIANA MYLES Study: Bone densitometry was performed. Exam Date: August 11, 2022 Accession number: [id number] Bone Density: Region BMD T-score Z-score Classification AP Spine(L1-L4) 0.870 -1.6 1.0 Osteopenia Femoral Neck (Left) 0.540 -2.8 -0.5 Osteoporosis Total Hip (Left) 0.694 -2.0 0.0 Osteopenia Femoral Neck (Right) 0.564 -2.6 -0.3 Osteoporosis Total Hip (Right) 0.668 -2.2 -0.3 Osteopenia Total Hip Mean 0.681 -2.1 -0.2 Osteopenia World Health Organization criteria for BMD impression classify patients as: Normal (T-score at or above -1.0), Osteopenia (T-score between -1.0 and -2.5), or Osteoporosis (T-score at or below -2.5). 10-year Fracture Risk: FRAX not reported because: Some T-score for Spine Total or Hip Total or Femoral Neck at or below -2.5 Clinical Information Provided by Patient: Has used the following medications: Vitamin D, Calcium Has the following medical conditions: Asthma or Emphysema, Cancer Patient maximum height was 66 Menopause Age: 58 Onset of menses at age 12 Number of children 3 Impression: The patient has osteoporosis, based on the Left Femoral Neck T-score. Discussion: INCREASED RISK OF FRACTURE. BONE DENSITY IS UNDESIRABLY LOW AT ONE OR MORE SKELETAL SITES, CONSISTENT WITH POSTMENOPAUSAL OSTEOPOROSIS. This patient's lowest T-score meets the World Health Organization's (WHO) criteria for osteoporosis at one or more sites (T-score -2.5 or below). In untreated patients, the risk of osteoporotic fracture increases approximately two-fold for each 1.0 SD decrease in T-score. Low bone density is not the only risk factor for fracture; also consider factors such as patient's age, frailty or poor health, risk of falling, risk of injury, previous osteoporotic fracture, family history of osteoporosis, cigarette smoking, low body weight, etc. Not everyone with low bone mineral density has osteoporosis; osteomalacia and other metabolic bone disorders should also be considered. Patients who have osteoporosis should be evaluated for specific diseases and conditions (secondary causes) that may cause or contribute to bone loss. The [place] [employer]ocrinologists (AACE) and National Osteoporosis Foundation (NOF) recommend pharmacologic intervention for all postmenopausal women whose T-score is in this range. The patient should follow a healthful lifestyle (good nutrition with adequate calcium and vitamin D, and appropriate weight-bearing exercise). Follow-Up: Consider a repeat BMD and Vertebral Fracture Assessment (VFA) exam in 2 years or sooner
== END 2022-08-11 14:46 | disposition home or self-care (01) ==
PROVIDERS: PCP Internal Medicine; Visit Provider Clinical Nurse Specialist
DX: Z12.31 Encounter for screening mammogram for malignant neoplasm of breast (principal); Z78.0 Asymptomatic menopausal state; C50.919 Malignant neoplasm of unspecified site of unspecified female breast; M85.88 Other specified disorders of bone density and structure, other site; M81.0 Age-related osteoporosis without current pathological fracture; M85.852 Other specified disorders of bone density and structure, left thigh; M85.851 Other specified disorders of bone density and structure, right thigh
CPT/HCPCS: 77063; 77067; 77080

== ENCOUNTER 2022-08-17 10:05 | Outpatient (CLI) | payer MEDICARE, SELFPAY ==
--- NOTE | ~2022-08-17 | XR_ITS ---
EXAMINATION: XR chest 2V Exam Date/Time: 08/17/2022 10:35 CDT HISTORY: J18.9 - Pneumonia, unspecified organism ASTHMA/SOB Comparison: 07/04/2020. RESULT: Lines, tubes, and devices: Left chest pacer, with intact leads. Retained contrast in the stomach. Lungs and pleura: Clear. Cardiomediastinal silhouette: Stable. Other: No acute osseous or upper abdominal finding. IMPRESSION: No acute cardiopulmonary process. Reviewed, dictated and finalized at location K.
--- NOTE | ~2022-08-17 | XR_ITS ---
EXAMINATION: XR barium swallow modified DATE: 08/17/2022 10:41 INDICATION: Dysphagia TECHNIQUE: Modified barium esophagram was performed by myself who administered fluoroscopy, in conju nction with speech pathologist who administered barium in varying consistencies as per speech patholo gist documentation. This was recorded on tape. A single fluoroscopic spot image was recorded. Fluoros copy exposure time was 1.5 minutes. The DAP for this procedure was 1.104 Gycm2. FINDINGS: Oral stage: Adequate function. Pharyngeal phase: Adequate function. Laryngeal penetration: Flash laryngeal penetration with thin liquids and pudding. Aspiration: None. Laryngeal sensitivity: Not applicable. IMPRESSION: Abnormal modified barium swallow as above. Please refer to speech pathologist findings an d specific feeding recommendations. Reviewed, dictated and finalized at location A. IMPRESSION: Abnormal modified barium swallow as above. Please refer to speech p athologist findings and specific feeding recommendations.
--- NOTE | 2022-08-17 14:08 | REHSTMBS ---
Assessment and note entered by Tameka Vanegas, [facility] Modified Barium Swallow Evaluation Feeding Type Recommended Oral Food Consistency Regular, Level 7 Liquid Consistency Thin (0) Treatment Recommendations Effortful Swallow,Laryngeal Elevation Exerc, Supraglottic Swallow ST Clinical Summary Patient was seen for an Modified Barium Swallow at the request of her physician. She reports she believes she has had a MBS study in the past which revealed that her flap doesn't close like it should. She also reported that she may have had a test with a camera that examined her although she is not sure and cannot remember why. Patient stated that she does become choked at times and that dry foods can cause her to cough. She also reports the feeling of food sitting at the base of her throat after swallowing and reports a history of GERD. Patient was presented with graduated amounts of thin liquid, pudding mixed with semi-solid contrast medium, and fruit and cracker both coated with the semi-solid mixture. Patient elicited quick swallows with evidence of trace/flash penetration on uncontrolled thin liquid and then again on 1/2 teaspoon of semi- solid mixture. She was then presented with uncontrolled thin liquid with and without straw, pudding, fruit, and cracker, all using head flexion and no additional penetration was noted. Of note, patient reported that she felt material remaining at the base of her throat although none was appreciated on the screen. Results indicate this patient may remain on Regular Diet and Regular Liquids with head flexion at all times. She voiced and demonstrated good understanding of the recommendation to use head flexion. Speech Therapy is recommended to instruct the patient in the use of exercises to increase the strength of the swallow; patient voiced that she is interested in exercises to prevent the random coughing and choking she is experiencing. Please order Speech Therapy to continued at the
== END 2022-08-17 10:06 | disposition home or self-care (01) ==
LOC: ANHIMG 10:10
PROVIDERS: PCP Internal Medicine; Referring Provider Clinical Nurse Specialist; Visit Provider Nurse Practitioner Family
DX: J18.9 Pneumonia, unspecified organism (principal); R13.10 Dysphagia, unspecified
CPT/HCPCS: 71046; 92611

== ENCOUNTER 2022-08-20 10:55 | Outpatient (CLI) | payer MEDICARE, SELFPAY ==
[2022-08-20 11:19] LABS: Basophils Absolute Auto 0.1 K/mm3 (0.0-0.1); Basophils Percent Auto 0.7 % (0.2-1.2); Eosinophils Absolute Auto 0.3 K/mm3 (0-0.3); Hematocrit 41.4 % (37.0-47.0); Hemoglobin 12.9 g/dL (12.0-15.0); Immature Granulocyte Absolute 0.06 K/mm3 (0.00-0.031); Immature Granulocyte Percent A 0.8 % (0-0.5); Lymphocytes Absolute Auto 1.47 K/mm3 (0.9-3.2); Lymphocytes Percent Auto 19.8 % (18.3-44.2); Mean Corpuscular HGB Conc 31.2 g/dl (32-36); Mean Corpuscular Hemoglobin 27.7 pg (26-34); Mean Corpuscular Volume 88.8 fl (80-100); Mean Platelet Volume 9.7 fl (7.4-10.4); Monocytes Absolute Auto 0.6 K/mm3 (0.1-0.6); Monocytes Percent Auto 7.7 % (2.6-8.5); Platelet Count Result 196 k/mm3 (150-375); Red Blood Count 4.66 M/mm3 (4.2-5.4); Red Cell Distribution Width 13.7 % (11.5-14.5); White Blood Count 7.4 K/mm3 (4.5-10.0)
== END 2022-08-20 10:56 | disposition home or self-care (01) ==
PROVIDERS: PCP Internal Medicine; Visit Provider Clinical Nurse Specialist
DX: R06.02 Shortness of breath (principal)
CPT/HCPCS: 36415; 85025

== ENCOUNTER 2023-01-04 08:41 | Outpatient (CLI) | payer MEDICARE, SELFPAY ==
[2023-01-04 09:25] LABS: Hemoglobin A1C 6.4 % (<5.7)
[2023-01-04 09:27] LABS: Anion Gap 6 mmol/L (8-16); Blood Urea Nitrogen 25 mg/dL (7-17); Calcium 9.3 mg/dL (8.4-10.2); Carbon Dioxide 31 mmol/L (22-30); Chloride 98 mmol/L (98-107); Estimated Glomerular Filt Rate 53; Glucose 123 mg/dL (65-110); Potassium 4.1 mmol/L (3.4-5.0); Sodium 135 mmol/L (137-145)
== END 2023-01-04 08:42 | disposition home or self-care (01) ==
PROVIDERS: PCP Internal Medicine; Visit Provider Nurse Practitioner
DX: E11.9 Type 2 diabetes mellitus without complications (principal); R94.4 Abnormal results of kidney function studies
CPT/HCPCS: 36415; 80048; 83036

== ENCOUNTER → 2023-01-14 11:50 | Outpatient (CLI) | payer MEDICARE, SELFPAY ==
--- NOTE | ~2023-01-14 | XR_ITS ---
AP and lateral views of the right hip Clinical history: Pain Findings: No acute fracture or dislocation is seen. Osseous alignment is anatomic. Bilateral hip and SI joint spaces are preserved. Soft tissues are unremarkable. Impression: No significant abnormality is seen. Reviewed, dictated and finalized at [facility]. [employer] Impression: No significant abnormality is seen.
--- NOTE | ~2023-01-14 | XR_ITS ---
Clinical Indication: Cough PA and lateral views of the chest: Comparison: 08/17/2022 Findings: The lungs are clear, without evidence of focal consolidation or pleural effusion. Skinfold noted at the lateral right lung base. Cardiomediastinal silhouette is stable, with pacemaker device. Bones and soft tissues are unremarkable. Impression: Clear lungs. Pacemaker is. Reviewed, dictated and finalized at location . [employer] Impression: Clear lungs. Pacemaker is.
== END ==
PROVIDERS: PCP Nurse Practitioner; Visit Provider Nurse Practitioner
DX: M25.551 Pain in right hip (principal); R07.89 Other chest pain; R05.9 Cough, unspecified; Z95.0 Presence of cardiac pacemaker
CPT/HCPCS: 71046; 73502

== ENCOUNTER 2023-01-18 10:02 | Outpatient (CLI) | payer MEDICARE, SELFPAY ==
[2023-01-18 10:32] LABS: Basophils Absolute Auto 0.1 K/mm3 (0.0-0.1); Eosinophils Absolute Auto 0.3 K/mm3 (0-0.3); Eosinophils Percent Auto 5.1 % (0-4.4); Hematocrit 41.5 % (37.0-47.0); Immature Granulocyte Absolute 0.01 K/mm3 (0.00-0.031); Immature Granulocyte Percent A 0.2 % (0-0.5); Lymphocytes Absolute Auto 1.97 K/mm3 (0.9-3.2); Lymphocytes Percent Auto 33.4 % (18.3-44.2); Mean Corpuscular HGB Conc 31.3 g/dl (32-36); Mean Corpuscular Hemoglobin 26.9 pg (26-34); Mean Corpuscular Volume 85.7 fl (80-100); Monocytes Absolute Auto 0.3 K/mm3 (0.1-0.6); Monocytes Percent Auto 5.8 % (2.6-8.5); Neutrophils Absolute Auto 3.2 K/mm3 (1.3-6.7); Neutrophils Percent Auto 54.5 % (45.5-73.1); Platelet Count Result 185 k/mm3 (150-375); Red Blood Count 4.84 M/mm3 (4.2-5.4); Red Cell Distribution Width 13.9 % (11.5-14.5); White Blood Count 5.9 K/mm3 (4.5-10.0)
[2023-01-18 10:42] LABS: Prothrombin Time 12.3 Seconds (11.1-14.7)
[2023-01-18 11:05] LABS: Free T4 Free Thyroxine 1.23 ng/mL (0.78-2.19)
[2023-01-18 11:11] LABS: Appearance Urine Clear (Clear); Bacteria Urine None Seen /hpf; Bilirubin Urine Negative (Negative); Blood Urine Negative (Negative); Color Urine Yellow (Yellow); Glucose Urine UA Negative (Negative); Ketones Urine Negative (Negative); Leukocyte Esterase Ur Trace LEU/UL (Negative); Nitrate Urine Negative (Negative); Non Pathogenic Casts 0-2; Protein Urine Negative (Negative); RBC Urine 0-2 /hpf (0-2); Specific Grav Ur 1.015 (1.001-1.035); Squamous Epithelial Cell Urine None seen /hpf (Few); Urobilinogen Urine 0.2 mg/dL (<2.0); pH Urine 7.5 (5.0-9.0)
[2023-01-18 11:13] LABS: Add Urine Microscopic? YES
== END 2023-01-18 10:03 | disposition home or self-care (01) ==
PROVIDERS: PCP Nurse Practitioner; Visit Provider Nurse Practitioner
DX: L65.9 Nonscarring hair loss, unspecified (principal); T14.8XXA Other injury of unspecified body region, initial encounter; R30.0 Dysuria
CPT/HCPCS: 36415; 81001; 84439; 84443; 85025; 85610; 87086

== ENCOUNTER 2023-04-05 11:58 | Emergency (ER) | payer MEDICARE, SELFPAY ==
[2023-04-05 12:08] VITALS: BP 150/73; PULSE 81; RESP 16; TEMP 36.4; O2SAT 99
--- NOTE | 2023-04-05 12:21 | ED.SKABFB ---
HPI - Skin/Abscess/Foreign Bdy General Chief complaint: Skin/Abscess/Foreign Body Stated complaint: Rash Time Seen by Provider: 04/05/23 12:51 Source: patient and RN notes reviewed Mode of arrival: ambulatory Limitations: no limitations History of Present Illness HPI narrative: 77-year-old female presents concern for itchy rash on her legs, behind her knees and now spreading to her arms. She reports she was concerned she may be getting bit by bugs source a spider. She reports blisters, linear patterns, some weeping. She denies swollen lips, swollen tongue, trouble breathing MD complaint: rash Related Data Home Medications Medication Instructions Recorded Confirmed ascorbic acid (vitamin C) 250 mg 250 mg PO DAILY 03/04/20 04/05/23 tablet (Vitamin C) calcium carbonate 500 mg calcium 500 mg PO DAILY 03/04/20 04/05/23 (1,250 mg) tablet (Calcium 500) vitamin B complex 1 cap PO DAILY 03/04/20 04/05/23 hydrochlorothiazide 12.5 mg capsule 12.5 mg PO DAILY 07/02/20 04/05/23 cholecalciferol (vitamin D3) 125 125 mcg PO DAILY 05/31/22 04/05/23 mcg (5,000 unit) capsule (Dialyvite Vitamin D) zinc 50 mg tablet 50 mg PO .QOD 01/14/23 04/05/23 amlodipine 10 mg tablet 10 mg PO DAILY 04/05/23 04/05/23 pantoprazole 20 mg tablet,delayed 20 mg PO DAILY 04/05/23 04/05/23 release Allergies Allergy/AdvReac Type Severity Reaction Status Date / Time No Known Allergies Allergy Verified 04/05/23 12:41 Review of Systems Review of Systems: CONSTITUTIONAL: Denies malaise, chills, sweats, or fever. EYES: Denies redness, or discharge. ENT: Denies rhinorrhea, congestion, swollen lips, swollen tongue CARDIOVASCULAR: Denies chest pain, palpitations, or edema. RESPIRATORY: Denies cough or dyspnea. GASTROINTESTINAL: Denies abdominal pain, nausea, vomiting SKIN: Reports itchy rash on her arms and legs MUSCULOSKELETAL: Denies joint pain or myalgia. NEUROLOGIC: Denies headache. 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 Diverticulosis Dry throat Dysphonia Family hx of colon cancer GERD (gastroesophageal reflux disease) Hx of adenomatous colonic polyps Hypertension dx about 2009 Nonerosive esophageal reflux disease Oropharyngeal dysphagia Sludge in gallbladder Surgical History Surgical History H/O lumpectomy 2010 S/P cardiac pacemaker procedure Medtronic pacemaker for sinus node dysfunction Family History Family History Father Hypertension Family history of coronary artery disease Family history of malignant neoplasm Patient's father is Dementia Grandparent Cerebrovascular accident Mother Carcinoma of colon Family history of malignant neoplasm Patient's mother is Alzheimer disease Sibling Patient's sister is in good health Patient's brother is in good health Social History Social History Years smoked: 10 Smoking status: Former smoker Tobacco type: cigarettes Second hand tobacco smoke exposure: Yes Smoking end date: 11/07/82 Additional smoking assessment comments: STATES 1PK/DAY-QUITE 40+ YRS AGO Alcohol intake: current Drinks per week: 1 Alcohol use details: Occasional red wine. Occasional gin and tonic when her sister visits. Substance use: never Substance use type: does not use Lack of Transportation: No Lack of Food: Never True Current Housing: I Have Housing Concerned About Future Housing: No Difficulty Paying Gas/Electric Bills: No Difficulty Paying for Meds: No Currently Unemployed: No Education
== END 2023-04-05 13:02 | disposition home or self-care (01) ==
PROVIDERS: Emergency Provider Nurse Practitioner; PCP Internal Medicine
DX: L25.9 Unspecified contact dermatitis, unspecified cause (principal); Z87.891 Personal history of nicotine dependence; I35.0 Nonrheumatic aortic (valve) stenosis; J45.909 Unspecified asthma, uncomplicated; Z85.3 Personal history of malignant neoplasm of breast; K21.9 Gastro-esophageal reflux disease without esophagitis; I10 Essential (primary) hypertension; Z95.0 Presence of cardiac pacemaker
CPT/HCPCS: 99213; G0463

== ENCOUNTER 2023-04-26 09:55 | Outpatient (CLI) | payer MEDICARE, SELFPAY ==
[2023-04-26 10:27] LABS: Basophils Percent Auto 0.3 % (0.2-1.2); Eosinophils Absolute Auto 0.4 K/mm3 (0-0.3); Hematocrit 36.1 % (37.0-47.0); Hemoglobin 11.4 g/dL (12.0-15.0); Immature Granulocyte Absolute 0.03 K/mm3 (0.00-0.031); Immature Granulocyte Percent A 0.5 % (0-0.5); Lymphocytes Absolute Auto 1.32 K/mm3 (0.9-3.2); Lymphocytes Percent Auto 22.4 % (18.3-44.2); Mean Corpuscular HGB Conc 31.6 g/dl (32-36); Mean Corpuscular Hemoglobin 27.3 pg (26-34); Mean Corpuscular Volume 86.6 fl (80-100); Mean Platelet Volume 9.9 fl (7.4-10.4); Monocytes Absolute Auto 0.4 K/mm3 (0.1-0.6); Monocytes Percent Auto 7.3 % (2.6-8.5); Neutrophils Absolute Auto 3.7 K/mm3 (1.3-6.7); Neutrophils Percent Auto 63.5 % (45.5-73.1); Platelet Count Result 186 k/mm3 (150-375); Red Blood Count 4.17 M/mm3 (4.2-5.4); Red Cell Distribution Width 13.8 % (11.5-14.5); White Blood Count 5.9 K/mm3 (4.5-10.0)
[2023-04-26 10:36] LABS: Alanine Aminotransferase 16 U/L (6-35); Albumin Level 3.8 g/dL (3.5-5.1); Alkaline Phosphatase 78 U/L (38-126); Anion Gap 6 mmol/L (8-16); Aspartate Amino Transferase 19 U/L (14-36); Bilirubin,Total 0.5 mg/dL (0.2-1.3); Blood Urea Nitrogen 19 mg/dL (7-17); Calcium 8.8 mg/dL (8.4-10.2); Carbon Dioxide 29 mmol/L (22-30); Chloride 102 mmol/L (98-107); Cholesterol 207 mg/dL (0-200); Estimated Glomerular Filt Rate 40; Glucose 136 mg/dL (65-110); HDL Direct 35 mg/dL; Potassium 4.1 mmol/L (3.4-5.0); Sodium 137 mmol/L (137-145); Triglycerides 279 mg/dL (<150)
[2023-04-26 10:37] LABS: Hemoglobin A1C 7.3 % (<5.7)
[2023-04-26 10:47] LABS: LDL Cholesterol Direct 105 mg/dL
[2023-04-26 11:07] LABS: Erythrocyte Sedimentation Rate 34 mm/hr (0-20)
[2023-04-26 11:15] LABS: Vitamin D 25 Hydroxy 73.1 ng/mL
[2023-04-26 11:28] LABS: Rheumatoid Factor < 12.0 IU/ML (<12)
[2023-04-29 17:12] LABS: ANA Cascade Screen Negative (Negative)
== END 2023-04-26 09:56 | disposition home or self-care (01) ==
LOC: ANHLAB 09:57
PROVIDERS: PCP Internal Medicine; Visit Provider Nurse Practitioner
DX: E11.9 Type 2 diabetes mellitus without complications (principal); E55.9 Vitamin D deficiency, unspecified; R94.4 Abnormal results of kidney function studies; M25.50 Pain in unspecified joint
CPT/HCPCS: 36415; 80053; 80061; 82306; 83036; 85025; 85652; 86038; 86430

== ENCOUNTER 2023-05-26 14:37 | Outpatient (CLI) | payer MEDICARE, SELFPAY ==
[2023-05-26 19:16] LABS: Basophils Absolute Auto 0.1 K/mm3 (0.0-0.1); Basophils Percent Auto 0.6 % (0.2-1.2); Eosinophils Absolute Auto 0.3 K/mm3 (0-0.3); Eosinophils Percent Auto 4.1 % (0-4.4); Immature Granulocyte Absolute 0.02 K/mm3 (0.00-0.031); Immature Granulocyte Percent A 0.2 % (0-0.5); Lymphocytes Absolute Auto 2.36 K/mm3 (0.9-3.2); Mean Corpuscular HGB Conc 31.6 g/dl (32-36); Mean Corpuscular Hemoglobin 27.7 pg (26-34); Mean Corpuscular Volume 87.8 fl (80-100); Mean Platelet Volume 10.8 fl (7.4-10.4); Monocytes Absolute Auto 0.6 K/mm3 (0.1-0.6); Neutrophils Absolute Auto 4.8 K/mm3 (1.3-6.7); Neutrophils Percent Auto 59.1 % (45.5-73.1); Platelet Count Result 226 k/mm3 (150-375); Red Blood Count 4.33 M/mm3 (4.2-5.4); Red Cell Distribution Width 13.3 % (11.5-14.5); White Blood Count 8.1 K/mm3 (4.5-10.0)
[2023-05-26 19:48] LABS: Anion Gap 6 mmol/L (8-16); Blood Urea Nitrogen 30 mg/dL (7-17); Carbon Dioxide 30 mmol/L (22-30); Chloride 102 mmol/L (98-107); Estimated Glomerular Filt Rate 48; Glucose 125 mg/dL (65-110); Potassium 4.3 mmol/L (3.4-5.0); Sodium 138 mmol/L (137-145)
== END 2023-05-26 14:38 | disposition home or self-care (01) ==
LOC: ANHGOSHLAB 14:40
PROVIDERS: PCP Internal Medicine; Visit Provider Clinical Nurse Specialist
DX: R60.0 Localized edema (principal)
CPT/HCPCS: 36415; 80048; 85025

== ENCOUNTER → 2023-09-02 09:09 | Outpatient (CLI) | payer MEDICARE, SELFPAY ==
--- NOTE | ~2023-09-02 | XR_ITS ---
EXAMINATION: XR hand LT min 3V DATE: 09/02/2023 09:21 INDICATION: Left hand pain. TECHNIQUE: 3 views of left hand were obtained. COMPARISON: None. FINDINGS: There is ulnar subluxation of second distal phalanx with respect to the middle phalanx. The re is radial subluxation of third distal phalanx with respect to the middle phalanx. No fracture. The re is severe osteoarthritis of triscaphe joint and first carpometacarpal joint. There is mild to mode rate osteoarthritis of most of the metacarpophalangeal joints and interphalangeal joints. There is se gris osteoarthritis of fourth proximal interphalangeal joint and second and third distal interphalang eal joints. IMPRESSION: 1. Polyarticular osteoarthritis. Reviewed, dictated and finalized at location E.
--- NOTE | ~2023-09-02 | XR_ITS ---
EXAMINATION: XR hand RT min 3V DATE: 09/02/2023 09:22 INDICATION: Right hand pain. TECHNIQUE: 3 views of right hand were obtained. COMPARISON: None. FINDINGS: There is radial subluxation of second distal phalanx with respect to the middle phalanx. No fracture. There is severe osteoarthritis of triscaphe joint and mild osteoarthritis of first carpome tacarpal joint. There is mild to moderate osteoarthritis of most of the metacarpophalangeal joints an d interphalangeal joints. There is severe osteoarthritis of first interphalangeal joint, second and t hird proximal interphalangeal joints, and second distal interphalangeal joint. IMPRESSION: 1. Polyarticular osteoarthritis. Reviewed, dictated and finalized at location E.
== END ==
PROVIDERS: PCP Internal Medicine; Visit Provider Clinical Nurse Specialist
DX: M19.042 Primary osteoarthritis, left hand (principal); M19.041 Primary osteoarthritis, right hand
CPT/HCPCS: 73130

== ENCOUNTER 2023-10-06 08:38 | Outpatient (CLI) | payer MEDICARE, SELFPAY ==
[2023-10-06 09:04] LABS: Basophils Absolute Auto 0.1 K/mm3 (0.0-0.1); Basophils Percent Auto 0.8 % (0.2-1.2); Eosinophils Absolute Auto 0.3 K/mm3 (0-0.3); Eosinophils Percent Auto 3.8 % (0-4.4); Hemoglobin 12.7 g/dL (12.0-15.0); Immature Granulocyte Absolute 0.03 K/mm3 (0.00-0.031); Immature Granulocyte Percent A 0.5 % (0-0.5); Lymphocytes Absolute Auto 1.68 K/mm3 (0.9-3.2); Lymphocytes Percent Auto 25.4 % (18.3-44.2); Mean Corpuscular Hemoglobin 26.7 pg (26-34); Mean Corpuscular Volume 86.3 fl (80-100); Mean Platelet Volume 10.1 fl (7.4-10.4); Monocytes Absolute Auto 0.5 K/mm3 (0.1-0.6); Monocytes Percent Auto 7.1 % (2.6-8.5); Neutrophils Absolute Auto 4.1 K/mm3 (1.3-6.7); Neutrophils Percent Auto 62.4 % (45.5-73.1); Platelet Count Result 213 k/mm3 (150-375); Red Blood Count 4.75 M/mm3 (4.2-5.4); Red Cell Distribution Width 13.2 % (11.5-14.5); White Blood Count 6.6 K/mm3 (4.5-10.0)
[2023-10-06 09:16] LABS: Alanine Aminotransferase 15 U/L (6-35); Albumin Level 4.6 g/dL (3.5-5.1); Alkaline Phosphatase 99 U/L (38-126); Anion Gap 11 mmol/L (8-16); Aspartate Amino Transferase 22 U/L (14-36); Bilirubin,Total 0.6 mg/dL (0.2-1.3); Blood Urea Nitrogen 28 mg/dL (7-17); Calcium 9.6 mg/dL (8.4-10.2); Carbon Dioxide 24 mmol/L (22-30); Chloride 103 mmol/L (98-107); Cholesterol 263 mg/dL (0-200); Estimated Glomerular Filt Rate 43; Glucose 148 mg/dL (65-110); HDL Direct 41 mg/dL; Sodium 138 mmol/L (137-145); Triglycerides 303 mg/dL (<150)
[2023-10-06 09:27] LABS: LDL Cholesterol Direct 108 mg/dL
[2023-10-06 09:52] LABS: Hemoglobin A1C 6.6 % (<5.7)
== END 2023-10-06 08:39 | disposition home or self-care (01) ==
LOC: ANHLAB 08:40
PROVIDERS: PCP Internal Medicine; Visit Provider Nurse Practitioner
DX: E11.9 Type 2 diabetes mellitus without complications (principal)
CPT/HCPCS: 36415; 80053; 80061; 83036; 85025

== ENCOUNTER 2023-11-10 14:15 | Outpatient (RCR) | payer MEDICARE, SELFPAY ==
--- NOTE | 2023-10-06 09:21 | OTOPEVAL1 ---
Assessment and note entered by WILEY Blank/Dylan, CHT Evaluation Information Assessment Status Evaluation Diagnosis Polyarthritis Subjective Information Patient reports experiencing progressive hand stiffness, weakness, and pain. She reports difficulties with writing, picking up and holding objects such as a bowl, cup, etc., opening jars. She is right handed. Assessment OT Clinical Summary Patient referred to OT with OA of her hands, which as been limiting hand use during ADLs. She presents with degenerative changes that have impacted functional ROM and strength of her hands. Skilled OT indicated for use of modalities, manual therapy, joint protection education, activity modification education, adaptive equipment education, and HEP instruction and progression. Plan of Care Interventions Therapeutic Exercise,Manual Therapy,Therapeutic Activities,Paraffin OT Services Indicated Yes Treatment Frequency and 1x/week for 5 weeks Duration These treatments will address the objective and functional deficits as defined above. The patient will be advanced safely and appropriately in order for the patient to progress towards his/her prior level of function. Additional exercises will be introduced and as well as a comprehensive home exercise program upon discharge, if needed, ?to ensure carryover of functional gains achieved in the clinic. This treatment plan has been reviewed and agreement upon by the patient.
--- NOTE | 2023-10-06 09:21 | OPREHPOC ---
Outpatient Therapy Plan of Care This is a Multidisciplinary Plan of Care that may contain components documented by all disciplines (PT, OT, and ST.) OT Problem 1 OT Problem #1 Knowledge Deficit OT Goal 1 Goal 1. Patient to be independent with instructed materials. Target Visit 5 OT Problem 2 OT Problem #2 Impaired Range of Motion OT Goal 1 Goal 1. Patient to be able to touch the index and middle fingers to her palm on the right hand. Target Visit 5 OT Problem 3 OT Problem #3 Impaired Strength OT Goal 1 Goal 1. Patient to be able to complete media consultant outside sales strengthening with yellow putty x5 minutes without reports of pain. 2. Increase (R) media consultant outside sales strength to 33 lbs. 3. Increase (L) media consultant outside sales strength to 36 lbs. Target Visit 5
--- NOTE | 2023-11-10 15:07 | OTOPDC ---
Assessment and note entered by Rupesh Moore, WILEY/Dylan, CHT OT Discharge Notification 11/10/23 Diagnosis Polyarthritis Subjective Information Patient reports she feels like her hands are a little more flexible. She reports particular activities have gotten easier such as writing and holding a bowl or a cup. Reported Pain Level Pain Score 0: Self Report Additional Pain Score Comments No pain at rest or with gentle active ROM. Reports her pain can get up to 5/10 with passive ROM. Assessment OT Clinical Summary Patient referred to OT with OA of her hands, which as been limiting hand use during ADLs. She has made good progress with therapy. Today she is measuring improved gross functional flexion of the fingers and reduced overall. She has been educated on joint protection techniques and adaptive equipment for ADLs. She is independent with HEP. No further skilled OT indicated at this time. Thank you for this referral. Plan of Care OT Services Indicated No
== END 2023-11-11 10:11 | disposition home or self-care (01) ==
LOC: ANHGOSHOT 14:15
PROVIDERS: PCP Internal Medicine; Visit Provider Clinical Nurse Specialist
DX: M13.0 Polyarthritis, unspecified (principal)
CPT/HCPCS: 97018; 97110; 97165; 97530

== ENCOUNTER 2024-05-11 08:50 | Outpatient (CLI) | payer MEDICARE, SELFPAY ==
[2024-05-11 09:45] LABS: Alanine Aminotransferase 13 U/L (6-35); Albumin Level 4.3 g/dL (3.5-5.1); Alkaline Phosphatase 66 U/L (38-126); Anion Gap 6 mmol/L (4-12); Aspartate Amino Transferase 20 U/L (14-36); Bilirubin,Total 0.8 mg/dL (0.2-1.3); Blood Urea Nitrogen 33 mg/dL (7-17); Calcium 9.2 mg/dL (8.4-10.2); Carbon Dioxide 29 mmol/L (22-30); Chloride 103 mmol/L (98-107); Cholesterol 236 mg/dL (0-200); Estimated Glomerular Filt Rate 48; Glucose 150 mg/dL (65-110); HDL Direct 35 mg/dL; Potassium 4.4 mmol/L (3.4-5.0); Sodium 138 mmol/L (137-145); Triglycerides 305 mg/dL (<150)
[2024-05-11 09:56] LABS: LDL Cholesterol Direct 111 mg/dL
[2024-05-11 09:59] LABS: Hemoglobin A1C 6.7 % (<5.7)
[2024-05-11 10:24] LABS: Vitamin D 25 Hydroxy 73.7 ng/mL
[2024-05-14 17:13] LABS: Apolipoprotein B 142 mg/dL
== END 2024-05-11 08:51 | disposition home or self-care (01) ==
LOC: ANHLAB 08:54
PROVIDERS: PCP Internal Medicine; Visit Provider Nurse Practitioner
DX: E11.69 Type 2 diabetes mellitus with other specified complication (principal); E78.5 Hyperlipidemia, unspecified; E55.9 Vitamin D deficiency, unspecified
CPT/HCPCS: 36415; 80053; 80061; 82172; 82306; 83036

== ENCOUNTER 2024-06-15 11:11 | Emergency (ER) | payer MEDICARE, SELFPAY ==
--- NOTE | ~2024-06-15 | XR_ITS ---
EXAMINATION: XR knee RT min 4V DATE: 06/15/2024 11:57 INDICATION: Right knee pain. TECHNIQUE: 4 views of right knee including standing views were obtained. COMPARISON: None. FINDINGS: Bone alignment is normal. No fracture. There is severe osteoarthritis of patellofemoral com partment and mild osteoarthritis of medial and lateral compartments. There is a small knee joint effu robin. IMPRESSION: 1. Severe right knee osteoarthritis. 2. Small right knee joint effusion. Reviewed, dictated and finalized at location A.
[2024-06-15 11:20] VITALS: BP 137/63; PULSE 71; RESP 20; TEMP 36.9; O2SAT 99
--- NOTE | 2024-06-15 11:43 | ED.LOWEXIN ---
HPI - Extremity Injury (Lower) General Chief Complaint: Extremity Injury, Lower Stated Complaint: R LEG PAIN Time Seen by Provider: 06/15/24 11:37 Source: patient and RN notes reviewed Mode of arrival: ambulatory Limitations: no limitations History of Present Illness HPI Narrative: Patient presents today complaining of right knee pain. Reports her pain has been present with flexion x1 month, but worse since last night. Denies any known injury or trauma. Currently rates her pain 8/10, which increases with weight-bearing. She has tried Tylenol without relief. Denies numbness or tingling in the leg or foot. She does report some radiation of the pain down the calf and up the thigh. Related Data Home Medications Medication Instructions Recorded Confirmed hydrochlorothiazide 12.5 mg capsule 12.5 mg PO DAILY 07/02/20 06/15/24 omega [id number] oil 300 1 cap PO DAILY 08/16/23 06/15/24 mg-1,000 mg capsule (Fish Oil) carboxymethylcellulose sodium 0.5 1 drp EACH EYE BID 11/10/23 06/15/24 % eye drops (Refresh Tears) acetaminophen 500 mg tablet 500 mg PO BID 06/12/24 06/15/24 (Tylenol Extra Strength) calcium carbonate 500 mg PO DAILY 06/12/24 06/15/24 mecobalamin (vitamin B12) 500 mcg 500 mcg PO DAILY 06/12/24 06/15/24 chewable tablet Allergies Allergy/AdvReac Type Severity Reaction Status Date / Time No Known Allergies Allergy Verified 06/15/24 11:44 Review of Systems Review of Systems: CONSTITUTIONAL: Denies body aches, fever, chills, or sweats. EYES: Denies visual changes, redness, or discharge. ENT: Denies rhinorrhea, congestion, sore throat, or otalgia. CARDIOVASCULAR: Denies chest pain, palpitations, or edema. RESPIRATORY: Denies cough or dyspnea. GASTROINTESTINAL: Denies abdominal pain, nausea, vomiting, or diarrhea. GENITOURINARY: Denies dysuria or hematuria. SKIN: Denies rash, itching, or wounds. MUSCULOSKELETAL: Denies back pain, or myalgia.+ right knee pain NEUROLOGIC: Denies headache, numbness, tingling, or weakness. PSYCH: Denies depression or anxiety. 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 Diverticulosis Dry throat Dysphonia Family hx of colon cancer GERD (gastroesophageal reflux disease) Hx of adenomatous colonic polyps Hypertension dx about 2009 Nonerosive esophageal reflux disease Oropharyngeal dysphagia Sludge in gallbladder Surgical History Surgical History H/O lumpectomy 2010 S/P cardiac pacemaker procedure Medtronic pacemaker for sinus node dysfunction Family History Family History Father Hypertension Family history of coronary artery disease Family history of malignant neoplasm Patient's father is Dementia Grandparent Cerebrovascular accident Mother Carcinoma of colon Family history of malignant neoplasm Patient's mother is Alzheimer disease Sibling Patient's sister is in good health Patient's brother is in good health Social History Social History Years smoked: 10 Smoking status: Former smoker Tobacco type: cigarettes Second hand tobacco smoke exposure: Yes Smoking end date: 11/07/82 Additional smoking assessment comments: STATES 1PK/DAY-QUITE 40+ YRS AGO Alcohol intake: current Drinks per week: 1 Alcohol use details: Occasional red wine. Occasional gin and tonic when her sister visits. Substance use: never Substance use type: does not use Lack of Transportation: No Lack of Food: Never True Current Housing: I Have Housing Concerned About Future Housing: No Difficulty Paying Gas/Electric Bills: No Di
== END 2024-06-15 12:21 | disposition home or self-care (01) ==
PROVIDERS: Emergency Provider Nurse Practitioner; PCP Nurse Practitioner
DX: M25.561 Pain in right knee (principal); Z87.891 Personal history of nicotine dependence; I35.0 Nonrheumatic aortic (valve) stenosis; J45.909 Unspecified asthma, uncomplicated; K21.9 Gastro-esophageal reflux disease without esophagitis; I10 Essential (primary) hypertension; Z85.3 Personal history of malignant neoplasm of breast; Z95.0 Presence of cardiac pacemaker
CPT/HCPCS: 73564; 99213; G0463

== ENCOUNTER 2024-12-15 12:37 | Emergency (ER) | payer MEDICARE, SELFPAY ==
[2024-12-15 13:39] VITALS: BP 142/62; PULSE 77; RESP 16; TEMP 37.1; O2SAT 96
--- NOTE | 2024-12-15 13:52 | ED_ITS ---
HPI - URI/Sore Throat General Chief Complaint: Upper Respiratory Infection Stated Complaint: COUGH/CONGESTION/WEAKNESS/BODY ACHES Time Seen by Provider: 12/15/24 13:45 Source: patient Mode of arrival: ambulatory Limitations: no limitations History of Present Illness HPI Narrative: Alisha is an 79-year-old female patient presenting to the clinic today with complaints cough, congestion, weakness, and body aches. Symptoms started 2 days ago. She denies any known fever. Does have a nonproductive cough. History of COPD MD elicited complaint: sore throat and nasal congestion Related Data Home Medications ?Medication ?Instructions ?Recorded ?Confirmed ?Last Taken ?Type hydrochlorothiazide 12.5 mg capsule 12.5 mg PO DAILY 07/02/20 06/15/24 09/29/20 History omega 6-dhp-sau-fish oil 300 1 cap PO DAILY 08/16/23 06/15/24 Unknown History mg-1,000 mg capsule (Fish Oil) carboxymethylcellulose sodium 0.5 1 drp EACH EYE BID 11/10/23 06/15/24 Unknown History % eye drops (Refresh Tears) acetaminophen 500 mg tablet 500 mg PO BID 06/12/24 06/15/24 Unknown History (Tylenol Extra Strength) calcium carbonate 500 mg PO DAILY 06/12/24 06/15/24 Unknown History mecobalamin (vitamin B12) 500 mcg 500 mcg PO DAILY 06/12/24 06/15/24 Unknown History chewable tablet Allergies Allergy/AdvReac Type Severity Reaction Status Date / Time No Known Allergies Allergy Verified 12/15/24 13:40 Review of Systems Review of Systems: Pertinent positives per HPI. Patient denies any fever, chills, rash, headache, visual changes, dizziness, cough, shortness of breath, chest pain, palpitations, nausea, vomiting, diarrhea, constipation, abdominal pain, or any urinary issues. 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 Dry throat Dysphonia Diverticulosis Family hx of colon cancer Hx of adenomatous colonic polyps Nonerosive esophageal reflux disease Oropharyngeal dysphagia Aortic stenosis mild GERD (gastroesophageal reflux disease) Asthma Breast cancer 2010, treated with lumpectomy and adjuvant radiotherapy Hypertension dx about 2009 Surgical History Surgical History S/P cardiac pacemaker procedure Medtronic pacemaker for sinus node dysfunction H/O lumpectomy 2010 Family History Family History Father Hypertension Family history of coronary artery disease Family history of malignant neoplasm Patient's father is Dementia Grandparent Cerebrovascular accident Mother Carcinoma of colon Family history of malignant neoplasm Patient's mother is Alzheimer disease Sibling Patient's sister is in good health Patient's brother is in good health Social History Social History Years smoked: 10 Smoking status: Former smoker Tobacco type: cigarettes Second hand tobacco smoke exposure: Yes Smoking end date: 11/07/82 Additional smoking assessment comments: STATES 1PK/DAY-QUITE 40+ YRS AGO Alcohol intake: current Drinks per week: 1 Alcohol use details: Occasional red wine. Occasional gin and tonic when her sister visits. Substance use: never Substance use type: does not use Lack of Transportation: No Lack of Food: Never True Current Housing: I Have Housing Concerned About Future Housing: No Difficulty Paying Gas/Electric Bills: No Difficulty Paying for Meds: No Currently Unemployed: No Education: Decline to Answer Difficulty w/ Childcare or Family Care: No Living arrangements: with family Additional living arrangements comments: Resides with spouse Occupation/Education: retired Gender identity (if verbalized by the patient): Female Spiritual care concerns: No Agree to blood products: Yes Comments At the time of my signature, I reviewed and agree with the nursing past medical, surgical, social, and family history. There is no relevant family history pertinent to the patient complaint. Exam Narrative: General: Well-developed, well nourished, in no apparent distress Head: Normocephalic, atraumatic Eyes: Pupils equally round and reactive to light bilaterally, EOM intact, sclera and conjunctive clear, no discharge, lids normal Ears: TMs intact and clear, ear canals clear, no drainage, grossly hearing normal. Nose: Nares patent, no discharge, no inflammation, no sinus tenderness. Mouth: Oral pharynx without lesions or masses, good dentition, MMM. Neck: Supple, trachea midline, no enlargement of anterior or posterior cervical nodes, no thyroid masses or goiter palpable. Cardio: Regular rate and rhythm, s1 and s2 normal, no murmur appreciated. Resp: Expiratory wheezing, no rhonchi, rales, or rubs Course Course Emergency Course: Portions of this record may have been created with voice recognition software. Level of Care: Express Care Visit Vital Signs Vital signs: Vital Signs Temperature 37.1 C 12/15/24 13:39 Pulse Rate 77 12/15/24 13:39 Respiratory Rate 16 12/15/24 13:39 Blood Pressure 142/62 H 12/15/24 13:39 Pulse Oximetry 96 12/15/24 13:39 Temperature 37.1 C 12/15/24 13:39 Pulse Rate 77 12/15/24 13:39 Respiratory Rate 16 12/15/24 13:39 Blood Pressure 142/62 H 12/15/24 13:39 Pulse Oximetry 96 12/15/24 13:39 Vital signs reviewed MDM - URI/Sore Throat MDM Narrative Medical decision making narrative: At the time of visit patient is resting comfortably on the exam table. Patient appears to be nontoxic. Labs: Influenza and COVID testing was performed. Influenza testing is positive for influenza A. COVID testing is negative. Plan: Patient has expiratory wheezing and influenza A test is positive. She is already prescribed a albuterol inhaler. Offered Tamiflu but patient declined. Supportive measures were discussed with the patient and they voiced understanding discharge instructions and agrees to treatment plan. Return preca utions reviewed Differential Diagnosis Differential diagnosis: Likely upper respiratory infection, otitis media, sinusitis, viral infection, bronchitis, influenza, pharyngitis and other (COVID) Discharge Plan Discharge Clinical Impression: Influenza A Patient Disposition: Home, Self-Care Condition: Stable Instructions: Antibiotic Form, Influenza (ED) Additional Instructions: COVID testing was negative in the clinic today. Influenza testing was positive for influenza A. You declined a Tamiflu prescription. May take Coricidin HBP for cold/flu symptoms Increase fluids and stay well hydrated Tylenol/motrin for pain/fever Flonase and OTC antihistamines as directed Vicks vapor rub to open sinuses Sinus rinses for congestion Cepacol spray, cough drops, throat lozenges, warm tea with honey/lemon, gargle salt water to soothe throat BRAT diet for diarrhea Clear liquids x 24 hours then advance as tolerated for nausea/vomiting Go to the ED if you develop a worsening in your condition- high fever not controlled by Tylenol or Motrin, dehydration, weakness, lethargy, shortness of breath, or chest pain. Follow up with your PCP in 3-5 days if symptoms persist. Patient Language: Albanian Prescriptions: No Action carboxymethylcellulose sodium [Refresh Tears] 0.5 % drops 1 drp EACH EYE BID omega 0-gju-zca-fish oil [Fish Oil] 300-1,000 mg capsule 1 cap PO DAILY calcium carbonate 500 mg calcium (1,250 mg) tablet 500 mg PO DAILY mecobalamin (vitamin B12) 500 mcg tablet,chewable 500 mcg PO DAILY acetaminophen [Tylenol Extra Strength] 500 mg tablet 500 mg PO BID atorvastatin 10 mg tablet 10 mg PO QHS Qty: 90 1RF hydrochlorothiazide 12.5 mg Capsule 12.5 mg PO DAILY alendronate [Fosamax] 70 mg tablet 70 mg PO WEEKLY Qty: 12 1RF losartan 50 mg tablet See Rx Instructions .ROUTE .COMPLEX Qty: 90 3RF Dose Instruction: TAKE 1 TABLET BY MOUTH DAILY Rx Instructions: TAKE 1 TABLET BY MOUTH DAILY albuterol sulfate 90 mcg/actuation HFA aerosol inhaler 1 inh inhalation Q4H Qty: 25.5 2RF amlodipine 10 mg tablet See Rx Instructions .ROUTE .COMPLEX Qty: 90 3RF Dose Instruction: TAKE 1 TABLET BY MOUTH DAILY Rx Instructions: TAKE 1 TABLET BY MOUTH DAILY Follow-up/Referrals: Henrietta Dahl, CLOTH DOUBLING MACHINE OPERATOR [Primary Care Provider] - Time of Disposition: 14:04 Quality NIHSS Nursing Documentation ED NIHSS nursing documentation: reviewed/agree
[2024-12-15 13:55] LABS: EDCOVIDSCREEN Negative (Negative); EDINFLUASCREEN Positive (Negative); EDINFLUBSCREEN Negative (Negative)
== END 2024-12-15 14:06 | disposition home or self-care (01) ==
PROVIDERS: Emergency Provider Nurse Practitioner Family; PCP Nurse Practitioner
DX: J10.1 Influenza due to other identified influenza virus with other respiratory manifestations (principal); Z20.822 Contact with and (suspected) exposure to COVID-19; J44.9 Chronic obstructive pulmonary disease, unspecified; K21.9 Gastro-esophageal reflux disease without esophagitis; J45.909 Unspecified asthma, uncomplicated; I10 Essential (primary) hypertension; Z95.0 Presence of cardiac pacemaker; Z85.3 Personal history of malignant neoplasm of breast
CPT/HCPCS: 87426; 87804; 99212; G0463

== ENCOUNTER 2025-02-27 07:52 | Outpatient (CLI) | payer MEDICARE, SELFPAY ==
--- OUTSIDE RECORDS SUMMARY | 2025-02-27 08:02 | XMS_ITS | Referral Summary ---
Author Organization [place] [address] Address [address] [place] [address] Care Team Providers Care Licensed Mental Health Counselor Name Role Phone Truong Chavarria DO Primary Care Provider [phone]- [phone] Encounters Date Type Department Care Team Description 02/14/[address] [phone] Jerri Huffman 2024 Orders Only [facility] Cardiology [address] [place] [address] [place] [phone] Alin Shelley MD Cardiac pacemaker in situ (Primary Dx); SSS (sick sinus syndrome) ([facility]); PAF (paroxysmal atrial fibrillation) ([facility]); Symptomatic bradycardia 2024 7:30 AM SUPERVISOR BEAM DEPARTMENT Ancillary Procedure [facility]iology [address] [place] [address] [place] [phone] Cardiac pacemaker in situ; Bradycardia; PAF (paroxysmal atrial fibrillation) ([facility]); SSS (sick sinus syndrome) (HCC) 12/06/2024 9:45 AM SUPERVISOR BEAM DEPARTMENT Office Visit [facility]iology [address] [place] [address] Alin Shelley MD PAF (paroxysmal atrial fibrillation) ([facility]) (Primary Dx); Nonrheumatic aortic valve stenosis; Hyperlipidemia LDL goal <100; Essential hypertension; Cardiac pacemaker in situ from Last 3 Months Allergies No known active allergies Medications albuterol HFA (PROVENTIL HFA,VENTOLIN HFA,PROAIR HFA) 90 mcg/actuation inhaler Inhale 2 puffs every 6 (six) hours as needed for wheezing Active amLODIPine (NORVASC) 10 mg tablet Take 1 tablet (10 mg total) by mouth daily Active losartan (COZAAR) 50 mg tablet Take 1 tablet (50 mg total) by mouth daily Active fluticasone propionate (FLONASE) 50 mcg/actuation nasal spray Administer 1 spray into each nostril daily Active cyanocobalamin (Vitamin B-12) 1,000 mcg tabletIndications :Prevention of Vitamin B12 Deficiency Take 1 tablet (1,000 mcg total) by mouth daily Active krill sjb-gyztu-2-dha-e pa 300-90 (27-45) mg capsule Take by mouth Activ e cholecalciferol, vitamin D3, (VITAMIN D3 ORAL) Take by mouth Active acetaminophen ER (TYLENOL) 650 mg 8 hr tablet Take 1 tablet (650 mg total) by mouth every 8 (eight) hours as needed for pain Active alendronate (FOSAMAX) 70 mg tablet Take 1 tablet (70 mg total) by mouth every 7 days 4 Active hydroCHLOROthiazi de (MICROZIDE) 12.5 mg capsuleIndication s:Essential hypertension TAKE 1 CAPSULE BY MOUTH DAILY 90 capsule 3 4 Active vit C,G-Nb-qaxzr-lute in-zeaxan 250-90-40-1 mg capsule Take by mouth Active calcium carbonate (CALCIUM 500 ORAL) Take by mouth Active ascorbic acid (vitamin C) 1,000 mg tablet Take 1 tablet (1,000 mg total) by mouth daily Active Active Problems Problem Noted Date Diagnosed Date Hypersomnolence 11/18/2021 PAF (paroxysmal atrial fibrillation) 05/14/2021 Visit for wound check 07/10/2020 Cardiac pacemaker in situ 07/07/2020 Overview (11/18/2021): Medtronic [place] Dual Pacemaker. Dx; SSS, Symptomatic Bradycardia, PAF. DOI 07/03/2020-[facility]. [facility] remote monitoring. 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 Unable to Answer 07/26/2023 Comments Unknown Sex and Gender Information Value Date Recorded Sex Assigned at Not on file Legal Sex Female 11:49 AM SUPERVISOR BEAM DEPARTMENT Gender Identity Not on file Sexual Orientation Not on file Last Filed Vital Signs Vital Sign Reading Time Taken Comments Blood Pressure 124/64 12/06/2024 10:11 AM SUPERVISOR BEAM DEPARTMENT Pulse 76 12/06/2024 10:11 AM SUPERVISOR BEAM DEPARTMENT Temperature 36.3 C (97.3 F) 06/06/2020 1:56 PM CDT Respiratory Rate 16 07/26/2023 10:44 AM CDT Oxygen Saturation 99% 12/06/2024 10:11 AM SUPERVISOR BEAM DEPARTMENT Inhaled Oxygen Concentration - - Weight 75.3 kg (166 lb) 12/06/2024 10:11 AM SUPERVISOR BEAM DEPARTMENT Height 162.6 cm (5' 4 ) 12/06/2024 10:11 AM SUPERVISOR BEAM DEPARTMENT Body Mass Index 28.49 12/06/2024 10:11 AM SUPERVISOR BEAM DEPARTMENT Plan of Treatment Not on file Procedures Procedure Name Priority Date/Time Associated Diagnosis Comments DEVICE CHECK - REMOTE Routine 2024 8:46 AM SUPERVISOR BEAM DEPARTMENT Cardiac pacemaker in situ Bradycardia PAF (paroxysmal atrial fibrillation) (HCC) SSS (sick sinus syndrome) ([facility]) from Last 3 Months Results * DEVICE CHECK - REMOTE (2024 8:46 AM SUPERVISOR BEAM DEPARTMENT) Anatomical Region Laterality Modality Other Narrative 12/25/2024 4:35 PM SUPERVISOR BEAM DEPARTMENT Medtronic [place] Dual Pacemaker. Dx; SSS, Symptomatic Bradycardia, PAF. DOI 07/03/2020-[facility] Routine AAIR <> DDDR Pacemaker Remote. Transmission attached. Battery status: 3.00 V, 8.8 years remaining battery life to MENDEL. Stable lead impedances, pacing and sensing thresholds. Presenting rhythm: A paced/V sensed AP-99.8%, VOCATIONAL REHABILITATION COUNSELOR-0.4% No AT/AF episodes noted. 1 Ventricular high rate episodes detected, IEGM demonstrates 1 second of NSVT. Medications: Amlodipine 10 mg, losartan 50 mg See scanned report. Office pacemaker follow up: 12/04/25 [facility] remote f/u 03/20/25. Kaushik Jade RN us Alin Shelley MD [facility] Final Result from Last 3 Months Insurance [facility] MEDICARE MEDICARE [facility] Member Subscriber Plan / Payer (Ef fective 2022-Present) Name:Bekah Gore Relation to Subscriber:Self Name:Bekah Gore Payer ID:[id number] Group ID:Not on file Type:COMMERCIAL Address: [place] [phone] MEDICARE [facility] MEDICARE Care Teams Licensed Mental Health Counselor Relationship Specialty Start Date End Date Truong Chavarria DO PCP - General Internal Medicine 09/22/17
--- OUTSIDE RECORDS SUMMARY | 2025-02-27 08:02 | XMS_ITS | Clinical Summary ---
Author Organization [facility] [address] [place] [address] Care Team Providers Care Distribution Designer Name Role Phone Truong Chavarria DO Primary Care Provider +1- [phone] Allergies No known active allergies Medications albuterol [...] mcg total) by mouth daily Active krill hcg-pqlxt-9-dha-e pa 300-90 (27-45) mg capsule Take by [...] DAILY 90 capsule 3 4 Active vit C,F-Dv-coaal-lute in-demianaxan 250-90-40-1 mg capsule Take by mouth Active [...] Pacemaker. Dx; SSS, Symptomatic Bradycardia, PAF. DOI 07/03/2020-[employer] remote monitoring. Lack of energy 05/26/2020 Nonrheumatic aortic valve stenosis 05/26/2020 Bradycardia 05/26/2020 Hyperlipidemia LDL goal <100 05/26/2020 Essential hypertension 05/26/2020 Ectopic atrial rhythm 05/26/2020 Encounters Date Type Department Care Team Description 02/14/[address] [phone] Jerri Huffman 2024 7:30 AM BUS DRIVER Ancillary Procedure [facility] Cardiology [address] [place] [address] [place] [phone] Cardiac pacemaker in situ; Bradycardia; PAF (paroxysmal atrial fibrillation) (HCC); SSS (sick sinus syndrome) (HCC) 2024 Orders Only [facility] Cardiology [address] [place] [address] [place] [phone] Alin Shelley MD Cardiac pacemaker in situ (Primary Dx); SSS (sick sinus syndrome) (HCC); PAF (paroxysmal atrial fibrillation) (HCC); Symptomatic bradycardia 12/06/2024 9:45 AM BUS DRIVER Office Visit [facility] Cardiology [address] [place] [address] [place] [phone] Alin Shelley MD PAF (paroxysmal atrial fibrillation) (HCC) (Primary Dx); Nonrheumatic aortic valve stenosis; Hyperlipidemia LDL goal <100; Essential hypertension; Cardiac pacemaker in situ from Last 3 Months Surgical History Surgery Date Site/Laterality Comments BREAST LUMPECTOMY DILATION AND CURETTAGE OF UTERUS Medical History Medical History Date Comments Hypertension Hyperlipidemia Acid indigestion Cancer (HCC) Asthma Arthritis GERD (gastroesophageal reflux disease) Family History Medical History Relation Name Comments Colon cancer Father Heart disease Mother Relation Name Status Comments Father (Age 79) Mother (Age 82) Social History Tobacco Use Types Packs/Day Years [...] on file Legal Sex Female 11:49 AM BUS DRIVER Gender Identity Not on file Sexual Orientation Not on file Obstetrics History Last Filed Vital Signs Vital Sign Reading Time Taken Comments Blood Pressure 124/64 12/06/2024 10:11 AM BUS DRIVER Pulse 76 12/06/2024 10:11 AM BUS DRIVER Temperature 36.3 C (97.3 F) 06/06/2020 1:56 PM CDT Respiratory Rate 16 07/26/2023 10:44 AM CDT Oxygen Saturation 99% 12/06/2024 10:11 AM BUS DRIVER Inhaled Oxygen Concentration - - Weight 75.3 kg (166 lb) 12/06/2024 10:11 AM BUS DRIVER Height 162.6 cm (5' 4 ) 12/06/2024 10:11 AM BUS DRIVER Body Mass Index 28.49 12/06/2024 10:11 AM BUS DRIVER Plan of Treatment Health Maintenance Due Date Last Done Comments Depression Screening 1945 Fall Risk Assessment 1945 Osteoporosis Screening-Bone Density Scan 1943 DTaP/Tdap/Td Vaccine (1 - Tdap) 1954 Hepatitis B Screening 1961 Pneumococcal vaccine 65+ (1 of 1 - PCV) 1993 Zoster Vaccine (1 of 2) 1993 Well Visit 65+ 2008 Influenza Vaccine (Season Ended) 2025 Procedures Procedure Name Priority Date/Time Associated Diagnosis Comments DEVICE CHECK - REMOTE Routine 2024 8:46 AM BUS DRIVER Cardiac pacemaker in situ Bradycardia PAF (paroxysmal atrial fibrillation) (HCC) SSS (sick sinus syndrome) (HCC) from Last 3 Months Results * DEVICE CHECK - REMOTE (2024 8:46 AM BUS DRIVER) Anatomical Region Laterality Modality Other Narrative 12/25/2024 4:35 PM BUS DRIVER Medtronic [place] Dual Pacemaker. Dx; SSS, Symptomatic Bradycardia, PAF. DOI 07/03/2020-[facility]. [facility] remote monitoring. Routine AAIR <> DDDR Pacemaker Remote. Transmission attached. Battery status: 3.00 V, 8.8 years remaining battery life to MENDEL. Stable lead impedances, pacing and sensing thresholds. Presenting rhythm: A paced/V sensed AP-99.8%, FELT HAT FLANGING OPERATOR-0.4% No AT/AF episodes noted. 1 Ventricular high rate episodes detected, IEGM demonstrates 1 second of NSVT. Medications: Amlodipine 10 mg, losartan 50 mg See scanned report. Office pacemaker follow up: 12/04/25 [facility] remote f/u 03/20/25. Kaushik Jade RN Alin Shelley MD [facility] Final Result from Last 3 Months Insurance [facility] MEDICARE Member Subscriber Plan / Payer (Ef fective 2009-Present) Name:Bekah Gore Member ID:[id number] Relation to Subscriber:Self Name:Bekah Gore Subscriber ID:[id number] Payer ID:[id number] Group ID:Not on file Type:MEDICARE TRADITIONAL Address: [place] [id number] [facility] MEDICARE [facility] MEDICARE Care Teams Distribution Designer Relationship Specialty Start Date End Date Truong Chavarria DO PCP - General Internal Medicine 09/22/17
--- OUTSIDE RECORDS SUMMARY | 2025-02-27 08:02 | XMS_ITS | Clinical Summary ---
Author Organization [facility] Address [address] [place] [address] Care Team Providers Care Mathematics Faculty Member Name Role Phone Unavailable Primary Care Provider Unavailabl e Source Comments [facility] Cap That,non-owned Affiliates and Associated Physician Practices is amultiple site organization consisting of ambulatory clinics and hospital sitesin [place], [place], [place] and [place]. This disclosure is being madepursuant to the Care Everywhere program and may not contain all information available regarding this patient. Last updated 18.[facility] Social History Tobacco Use Types Packs/Day Years Used Date Smoking Tobacco: Never Assessed Comments Unknown Sex and Gender Information Value Date Recorded Sex Assigned at Not on file Legal Sex Female 10:17 AM CDT Gender Identity Not on file Sexual Orientation Not on file Plan of Treatment Health Maintenance Due Date Last Done Comments BONE DENSITY TESTING 1945 MEDICARE AWV 12 MONTHS 1945 DTAP/TDAP/TD VACCINES (1 - Tdap) 1962 PNEUMOCOCCAL VACCINE 50+ (1 of 1 - PCV) 1993 ZOSTER VACCINE (1 of 2) 1993 Respiratory Syncytial Virus (RSV) Vaccine Pt: or over 60 yrs (1 - 1-dose 75+ series) 2018 COVID-19 VACCINE ( - 2023-2 5 season) 2024 DEPRESSION SCREENING 11/07/2024 INFLUENZA VACCINE (Season Ended) 2025 HEPATITIS B VACCINE Aged Out No longe r eligible based on patient's age to complete this topic HIB VACCINE Aged Out No longer eligi ble based on patient's age to complete this topic HPV VACCINE Aged Out No longer eligi ble based on patient's age to complete this topic MENINGOCOCCAL (Group B) VACC INE SHARED DECISION-MAKING Aged Out No longer eligibl e based on patient's age to complete this topic MENINGOCOCCAL GROUPS A/C/Y/W VACCINE Aged Out No longer eligible b ased on patient's age to complete this topic Insurance MEDICARE [facility] MEDICARE
[2025-02-27 08:29] LABS: Basophils Absolute Auto 0.1 K/mm3 (0.0-0.1); Basophils Percent Auto 0.7 % (0.2-1.2); Eosinophils Absolute Auto 0.4 K/mm3 (0-0.3); Eosinophils Percent Auto 5.3 % (0-4.4); Hematocrit 38.3 % (37.0-47.0); Hemoglobin 11.9 g/dL (12.0-15.0); Immature Granulocyte Absolute 0.01 K/mm3 (0.00-0.031); Immature Granulocyte Percent A 0.1 % (0-0.5); Lymphocytes Absolute Auto 2.27 K/mm3 (0.9-3.2); Lymphocytes Percent Auto 33.3 % (18.3-44.2); Mean Corpuscular HGB Conc 31.1 g/dl (32-36); Mean Corpuscular Hemoglobin 27.5 pg (26-34); Mean Corpuscular Volume 88.5 fl (80-100); Monocytes Absolute Auto 0.6 K/mm3 (0.1-0.6); Monocytes Percent Auto 8.2 % (2.6-8.5); Neutrophils Absolute Auto 3.6 K/mm3 (1.3-6.7); Neutrophils Percent Auto 52.4 % (45.5-73.1); Platelet Count Result 202 k/mm3 (150-375); Red Blood Count 4.33 M/mm3 (4.2-5.4); Red Cell Distribution Width 14.1 % (11.5-14.5); White Blood Count 6.8 K/mm3 (4.5-10.0)
[2025-02-27 08:42] LABS: Alanine Aminotransferase 19 U/L (6-35); Albumin Level 4.2 g/dL (3.5-5.1); Alkaline Phosphatase 68 U/L (38-126); Anion Gap 10 mmol/L (4-12); Aspartate Amino Transferase 25 U/L (14-36); Bilirubin,Total 0.6 mg/dL (0.2-1.3); Blood Urea Nitrogen 35 mg/dL (7-17); Calcium 9.1 mg/dL (8.4-10.2); Carbon Dioxide 26 mmol/L (22-30); Chloride 102 mmol/L (98-107); Cholesterol 161 mg/dL (0-200); Estimated Glomerular Filt Rate 40; Glucose 144 mg/dL (65-110); HDL Direct 29 mg/dL; Potassium 4.4 mmol/L (3.4-5.0); Sodium 138 mmol/L (137-145); Triglycerides 294 mg/dL (<150)
[2025-02-27 08:53] LABS: LDL Cholesterol Direct 56 mg/dL
[2025-02-27 09:14] LABS: Hemoglobin A1C 6.7 % (<5.7)
[2025-02-27 09:57] LABS: Creatinine Urine 117.6 mg/dL
[2025-02-27 10:04] LABS: MALB Creatinine Ratio 43.2 mg/g (0-30); Microalbumin Urine Random 50.8 mg/L (0-16.7)
== END 2025-02-27 07:53 | disposition home or self-care (01) ==
LOC: ANHLAB 07:55
PROVIDERS: PCP Internal Medicine; Visit Provider Nurse Practitioner
DX: E11.69 Type 2 diabetes mellitus with other specified complication (principal); E11.59 Type 2 diabetes mellitus with other circulatory complications; E11.22 Type 2 diabetes mellitus with diabetic chronic kidney disease; N18.30 Chronic kidney disease, stage 3 unspecified; E78.5 Hyperlipidemia, unspecified; I15.2 Hypertension secondary to endocrine disorders; E55.9 Vitamin D deficiency, unspecified
CPT/HCPCS: 36415; 80053; 80061; 82043; 83036; 85025

== ENCOUNTER 2025-03-18 09:04 | Emergency (ER) | payer MEDICARE, SELFPAY ==
--- NOTE | ~2025-03-18 | XR_ITS ---
XR foot RT min 3V Ordering provider: Nathalia Desai APRN History: . pain red swelling Rt foot x 4 days w/o injury, diabetic . Comparison: None. FINDINGS: BONES: No acute fracture or dislocation. Erosive area seen in the distal metaphysis of the first and the fifth metatarsal bone which may indicate gout. Clinical correlation advised. JOINT SPACES: Osteoarthritic changes of the tarsometatarsal joints is noted. Osteoarthritic changes b etween the navicular bone and first cuneiform is also noted. Narrowing of the proximal and distal int erphalangeal joints is seen. Osteoarthritic changes of the first metatarsophalangeal joint is also se en. No tarsal coalition. SOFT TISSUES: Normal. Calcaneal spur. Ossification of the insertion of the tendo Achilles. IMPRESSION: No acute osseous abnormality of the right foot. Erosive changes in the distal metaphysis of the first and fifth metatarsal bones which may be degener ative but gout should be considered. Polyarticular osteoarthritic changes. Reviewed, dictated and finalized at location A. IMPRESSION: No acute osseous abnormality of the right foot. Erosive changes in the distal metaphysis of the first and fifth metatarsal bone s which may be degenerative but gout should be considered. Polyarticular osteoarthritic changes.
[2025-03-18 09:20] VITALS: BP 141/66; PULSE 65; RESP 16; TEMP 36.2; O2SAT 100
--- NOTE | 2025-03-18 09:37 | ED_ITS ---
HPI - General Adult General Chief complaint: Extremity Problem,Nontraumatic Stated complaint: BOTH FEET SWELLING/R HAND PAIN/REDNESS Time Seen by Provider: 03/18/25 09:38 Source: patient Mode of arrival: ambulatory Limitations: no limitations History of Present Illness HPI narrative: 79 y/o female presented for c/o right foot redness, swelling and pain worsening the past few days. Denies known injury. Says she exercises often. Pain is worse when walking, says it feels like she is stepping on a bottle cap. Redness is worse to the outside of the foot. Ambulates with mild limp. Also reports redness and swelling to the right thumb, with slightly decreased ROM due to pain. Has been taking Fosamax x4 months, and says bone pain has been worsening since starting it. Related Data Home Medications ?Medication ?Instructions ?Recorded ?Confirmed ?Last Taken ?Type hydrochlorothiazide 12.5 mg capsule 12.5 mg PO DAILY 07/02/20 02/05/25 09/29/20 History omega 5-ngn-tlf-fish oil 300 1 cap PO DAILY 08/16/23 02/05/25 Unknown History mg-1,000 mg capsule (Fish Oil) acetaminophen 500 mg tablet 500 mg PO BID 06/12/24 02/05/25 Unknown History (Tylenol Extra Strength) calcium carbonate 500 mg PO DAILY 06/12/24 02/05/25 Unknown History mecobalamin (vitamin B12) 500 mcg 500 mcg PO DAILY 06/12/24 02/05/25 Unknown History chewable tablet ascorbic acid (vitamin C) 1,000 mg 1 g PO DAILY 12/20/24 02/05/25 Unknown History capsule vitamins A,C,Z-fjln-cnhdaz 2,148 2 tablet PO BID 12/20/24 02/05/25 Unknown History mcg-113 mg-45 mg-17.4 mg tablet (PreserVision AREDS) Allergies Allergy/AdvReac Type Severity Reaction Status Date / Time No Known Allergies Allergy Verified 03/18/25 09:43 Review of Systems Review of Systems: CONSTITUTIONAL: Denies body aches, fever, chills EYES: Denies visual changes ENT: Denies rhinorrhea, congestion CARDIOVASCULAR: Denies chest pain, palpitations, or edema. RESPIRATORY: Denies cough or dyspnea. SKIN: Denies rash, itching, or wounds. MUSCULOSKELETAL: reports right foot pain, redness, joint pain NEUROLOGIC: Denies headache, numbness, tingling, or weakness. 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 Dry throat Dysphonia Diverticulosis Family hx of colon cancer Hx of adenomatous colonic polyps Nonerosive esophageal reflux disease Oropharyngeal dysphagia Aortic stenosis mild GERD (gastroesophageal reflux disease) Asthma Breast cancer 2010, treated with lumpectomy and adjuvant radiotherapy Hypertension dx about 2009 Surgical History Surgical History S/P cardiac pacemaker procedure Medtronic pacemaker for sinus node dysfunction H/O lumpectomy 2010 Family History Family History Father Hypertension Family history of coronary artery disease Family history of malignant neoplasm Patient's father is Dementia Grandparent Cerebrovascular accident Mother Carcinoma of colon Family history of malignant neoplasm Patient's mother is Alzheimer disease Sibling Patient's sister is in good health Patient's brother is in good health Social History Social History Years smoked: 10 Smoking status: Former smoker Tobacco type: cigarettes Second hand tobacco smoke exposure: Yes Smoking end date: 11/07/82 Additional smoking assessment comments: STATES 1PK/DAY-QUITE 40+ YRS AGO Alcohol intake: current Drinks per week: 1 Alcohol use details: Occasional red wine. Occasional gin and tonic when her sister visits. Substance use: never Substance use type: does not use Do You Feel Safe in your Home?: Yes Lack of Transportation: No Lack of Food: Never True Current Housing: I Have Housing Concerned About Future Housing: No Difficulty Paying Gas/Electric Bills: No Difficulty Paying for Meds: No Currently Unemployed: No Education: High School Diploma/GED Difficulty w/ Childcare or Family Care: No Living arrangements: with family Additional living arrangements comments: Resides with spouse Occupation/Education: retired Gender identity (if verbalized by the patient): Female Spiritual care concerns: No Agree to blood products: Yes Comments At time of signature, I have reviewed and agree with nursing past medical, surgical, social and family history unless otherwise noted. Please see nursing chart for further information. There is no relevant family history pertinent to the presenting complaint Exam Narrative: GENERAL: Well-appearing, and in no acute distress. CHEST: Speaks in full sentences. No respiratory distress. HEART: Regular rate and rhythm. Normal and equal peripheral pulses. EXTREMITIES: right foot has normal strength and sensation, normal range of motion at ankle. Moderate swelling noted to ankle and foot. Erythema noted to lateral foot from 3rd metatarsal extending to 5th metatarsal. Tender wth light palpation to site and to plantar surface of the foot.No ecchymosis, No open wounds or obvious deformity; alignment normal, pulse palpable and equal bilaterally, skin warm, dry, pink. Capillary refill less than 3 seconds. SKIN: Warm, dry, no rash. Mild erythema and swelling to the right 1st MCP. NEURO: Alert and oriented x3. PSYCH: Normal mood and affect Course Course Emergency Course: Patient is aware of diagnosis, understands and agrees to treatment plan. Anticipatory guidance given. Patient agrees to follow-up as directed and is aware of reasons to seek care at the emergency department. Portions of this record may have been created with voice recognition software Level of Care: Express Care Visit Vital Signs Vital signs: Vital Signs Temperature 97.2 F L 03/18/25 09:20 Pulse Rate 65 03/18/25 09:20 Respiratory Rate 16 03/18/25 09:20 Blood Pressure 141/66 H 03/18/25 09:20 Pulse Oximetry 100 03/18/25 09:20 Temperature 97.2 F L 03/18/25 09:20 Pulse Rate 65 03/18/25 09:20 Respiratory Rate 16 03/18/25 09:20 Blood Pressure 141/66 H 03/18/25 09:20 Pulse Oximetry 100 03/18/25 09:20 Reviewed Medical Decision Making [facility] Narrative Medical decision making narrative: Discussed physical exam findings c/w gout vs cellulitis. Reviewed rx with pt; advised close fu. Advised supportive measures and signs/symptoms to go to the ER. Pt is appropriate for outpt treatment and f/u. Differential Diagnosis Differential Diagnosis: Plantar fasciitis, heel spur, foot strain/sprain, metatarsal fracture, metatarsalgia, mullen's neuroma, gout, cellulitis Vital Signs Vital Signs: Vital Signs Temperature 97.2 F L 03/18/25 09:20 Pulse Rate 65 03/18/25 09:20 Respiratory Rate 16 03/18/25 09:20 Blood Pressure 141/66 H 03/18/25 09:20 Pulse Oximetry 100 03/18/25 09:20 Temperature 97.2 F L 03/18/25 09:20 Pulse Rate 65 03/18/25 09:20 Respiratory Rate 16 03/18/25 09:20 Blood Pressure 141/66 H 03/18/25 09:20 Pulse Oximetry 100 03/18/25 09:20 Imaging Data Radiologist's impression: Patient: Bekah Gore : 1945 MR#: [id number] Age: 79 Acct:[id number] Loc: [facility] ADM Date: 03/18/25Attending Dr: Ordering Physician: Nathalia Desai APRN Date of Service: 03/18/25 Procedure(s): XR foot RT min 3V Accession Number(s): [id number] cc: Bernadine Espinoza APRN; Nathalia Desai APRN; Truong Chavarria DO~ XR foot RT min 3V Ordering provider: Nathalia Desai APRN History: . pain red swelling Rt foot x 4 days w/o injury, diabetic . Comparison: None. FINDINGS: BONES: No acute fracture or dislocation. Erosive area seen in the distal metaphysis of the first and the fifth metatarsal bone which may indicate gout. Clinical correlation advised. JOINT SPACES: Osteoarthritic changes of the tarsometatarsal joints is noted. Osteoarthritic changes between the navicular bone and first cuneiform is also noted. Narrowing of the proximal and distal interphalangeal joints is seen. Osteoarthritic changes of the first metatarsophalangeal joint is also seen. No tarsal coalition. SOFT TISSUES: Normal. Calcaneal spur. Ossification of the insertion of the tendo Achilles. IMPRESSION: No acute osseous abnormality of the right foot. Erosive changes in the distal metaphysis of the first and fifth metatarsal bones which may be degenerative but gout should be considered. Polyarticular osteoarthritic changes. Discharge Plan Discharge Clinical Impression: Swelling of right foot Patient Disposition: Home Condition: Stable Instructions: Antibiotic Form, Cellulitis (ED), Gout (ED) Additional Instructions: Rest and elevate the right foot take antibiotic as directed Tylenol as needed for pain Gout is a form of inflammatory?arthritis that causes pain and swelling in your joints. A buildup of excess uric acid in your body causes gout. Your body naturally makes uric acid when it breaks down chemicals called purines found in certain foods and drinks. Your kidneys usually filter uric acid out of your blood. Gout symptoms come and go in episodes called flares or gout attacks.?Gout attacks usually last a week or two. You might have some flares that last longer than others, and some might cause more severe symptoms. Between attacks, you might not experience any gout symptoms. Risks include: Parent/grandparent with gout Eating a lot of animal proteins ? especially animal flesh, shellfish and foods that contain organ meat. Drinking alcohol regularly. Taking a diuretic medication (water pills). Taking immunosuppressants Take medication as directed Recommend low purine diet Follow up with primary care provider, call today to schedule appointment Go to the ER for any worsening symptoms or concerns Patient Language: Australian Prescriptions: New prednisone 20 mg tablet 40 mg PO DAILY 4 Days Qty: 8 0RF cephalexin 500 mg capsule 500 mg PO Q8H 7 Days Qty: 21 0RF No Action omega 7-fym-tce-fish oil [Fish Oil] 300-1,000 mg capsule 1 cap PO DAILY calcium carbonate 500 mg calcium (1,250 mg) tablet 500 mg PO DAILY mecobalamin (vitamin B12) 500 mcg tablet,chewable 500 mcg PO DAILY acetaminophen [Tylenol Extra Strength] 500 mg tablet 500 mg PO BID PreserVision AREDS 2,148 mcg-113 mg-45 mg-17.4mg tablet 2 tablet PO BID Rx Instructions: administer with AM and PM meals ascorbic acid (vitamin C) 1,000 mg capsule 1 g PO DAILY hydrochlorothiazide 12.5 mg Capsule 12.5 mg PO DAILY losartan 50 mg tablet See Rx Instructions .ROUTE .COMPLEX Qty: 90 3RF Dose Instruction: TAKE 1 TABLET BY MOUTH DAILY Rx Instructions: TAKE 1 TABLET BY MOUTH DAILY albuterol sulfate 90 mcg/actuation HFA aerosol inhaler 1 inh inhalation Q4H Qty: 25.5 2RF amlodipine 10 mg tablet See Rx Instructions .ROUTE .COMPLEX Qty: 90 3RF Dose Instruction: TAKE 1 TABLET BY MOUTH DAILY Rx Instructions: TAKE 1 TABLET BY MOUTH DAILY alendronate 70 mg tablet See Rx Instructions .ROUTE .COMPLEX Qty: 12 3RF Dose Instruction: TAKE 1 TABLET BY MOUTH WEEKLY Rx Instructions: TAKE 1 TABLET BY MOUTH WEEKLY atorvastatin 10 mg tablet 10 mg PO QHS Qty: 90 1RF Follow-up/Referrals: Truong Chavarria, [Primary Care Provider] -
== END 2025-03-18 10:37 | disposition home or self-care (01) ==
PROVIDERS: PCP Internal Medicine
DX: R22.41 Localized swelling, mass and lump, right lower limb (principal); Z87.891 Personal history of nicotine dependence; I35.0 Nonrheumatic aortic (valve) stenosis; K21.9 Gastro-esophageal reflux disease without esophagitis; J45.909 Unspecified asthma, uncomplicated; I10 Essential (primary) hypertension; Z85.3 Personal history of malignant neoplasm of breast; Z95.0 Presence of cardiac pacemaker; Z90.11 Acquired absence of right breast and nipple
CPT/HCPCS: 73630; 99213; G0463

== ENCOUNTER 2025-04-16 10:40 | Outpatient (CLI) | payer MEDICARE, SELFPAY ==
--- NOTE | ~2025-04-16 | XR_ITS ---
Right foot Technique: AP, oblique, and lateral views were obtained. Clinical History: Pain and swelling COMPARISON: 03/18/2025 Findings: Suspected transverse fracture the base of fifth metatarsal. Stable suspected erosive arthro carlos at the first MTP joint with small punched-out erosions. There is additional probable erosive ar thropathy extensively involving the second through fifth TMT joints. Additional suspected erosive art hropathy at the naviculocuneiform articulation. Probable focal erosive change at the fifth metatarsal head.. Soft tissues are unremarkable. Impression: Suspected transverse fracture the base of fifth metatarsal. Extensive erosive arthropathy involving the first MTP joint, with metatarsal head, and second through fifth tarsometatarsal joints. Findings are suspicious for gouty arthritis. Reviewed, dictated and finalized at location . Impression: Suspected transverse fracture the base of fifth metatarsal. Extensive erosive arthropathy involving the first MTP joint, with metatarsal he ad, and second through fifth tarsometatarsal joints. Findings are suspicious fo r gouty arthritis.
== END 2025-04-16 10:41 | disposition home or self-care (01) ==
LOC: GOSHIMG 10:41
PROVIDERS: PCP Nurse Practitioner; Visit Provider Nurse Practitioner
DX: M19.071 Primary osteoarthritis, right ankle and foot (principal)
CPT/HCPCS: 73630

== ENCOUNTER 2025-04-30 07:55 | Outpatient (CLI) | payer MEDICARE, SELFPAY ==
[2025-04-30 08:59] LABS: Complement C3 94 mg/dL (88-165)
[2025-04-30 09:16] LABS: Albumin Level 3.9 g/dL (3.5-5.1); Anion Gap 9 mmol/L (4-12); Blood Urea Nitrogen 35 mg/dL (7-17); Calcium 9.1 mg/dL (8.4-10.2); Carbon Dioxide 28 mmol/L (22-30); Chloride 103 mmol/L (98-107); Estimated Glomerular Filt Rate 56; Glucose 147 mg/dL (65-110); Phosphorus 3.5 mg/dL (2.5-4.5); Potassium 3.8 mmol/L (3.4-5.0); Sodium 140 mmol/L (137-145)
[2025-04-30 10:24] LABS: Creatinine Urine 55.5 mg/dL; Total Protein Urine Random 6 mg/dL; Ur Ttl Prot Creatinine Ratio 0.11 mg/mg (0-0.20)
[2025-05-01 05:43] LABS: Creatinine, Random Urine 56 mg/dL (20-275); Total Prot/Creat ratio mg/mg 0.125 (0.024-0.184); Total Protein/Creatinine Ratio 125 mg/g creat (24-184)
[2025-05-01 07:28] LABS: DNA (ds) Antibody. 1 IU/mL
[2025-05-02 08:59] LABS: Albumin 3.8 g/dL (3.8-4.8); Alpha 1 Globulin 0.3 g/dL (0.2-0.3); Alpha 2 Globulin 0.8 g/dL (0.5-0.9); Beta 1 Globulin 0.3 g/dL (0.4-0.6); Gamma Globulin 0.7 g/dL (0.8-1.7)
[2025-05-03 08:29] LABS: ANCA Screen NEGATIVE (NEGATIVE)
== END 2025-04-30 07:56 | disposition home or self-care (01) ==
PROVIDERS: PCP Nurse Practitioner; Visit Provider Internal Medicine Nephrology
DX: I12.9 Hypertensive chronic kidney disease with stage 1 through stage 4 chronic kidney disease, or unspecified chronic kidney disease (principal); N18.32 Chronic kidney disease, stage 3b
CPT/HCPCS: 36415; 80069; 82570; 83520; 84155; 84156; 84165; 84166; 86036; 86038; 86039; 86160; 86225

== ENCOUNTER 2025-05-02 09:10 | Outpatient (CLI) | payer MEDICARE, SELFPAY ==
--- NOTE | ~2025-05-02 | US_ITS ---
US renal BI Ordering provider: Devaughn Srinivasan MD History: . I12.9 - Hypertensive chronic kidney disease with stage 1 ... . Comparison: None. Technique: Ultrasound bilateral kidneys. Findings: RIGHT KIDNEY: Measures 8.2x 4.3x 4 cm in length which is normal in size. Renal cysts is seen with the largest measuring 2.4 cm. No renal mass or visualized echogenic stones. Otherwise, normal echotextur e and contour. No hydronephrosis. Normal renal cortical thickness. LEFT KIDNEY: Measures 9.1x 4.3x 4.4 cm in length which is normal in size. No renal cysts. No renal ma ss or visualized echogenic stones. Otherwise, normal echotexture and contour. No hydronephrosis. Norm al renal cortical thickness. BLADDER: Underfilled. Ureteral jets were not seen bilaterally. IMPRESSION: Right renal cysts. Other appearances are unremarkable. Reviewed, dictated and finalized at location A.
== END 2025-05-02 09:11 | disposition home or self-care (01) ==
PROVIDERS: PCP Nurse Practitioner; Visit Provider Internal Medicine Nephrology
DX: I12.9 Hypertensive chronic kidney disease with stage 1 through stage 4 chronic kidney disease, or unspecified chronic kidney disease (principal); N18.32 Chronic kidney disease, stage 3b; N28.1 Cyst of kidney, acquired
CPT/HCPCS: 76775

== ENCOUNTER 2025-05-09 09:15 | Emergency (ER) | payer MEDICARE, SELFPAY ==
[2025-05-09 09:45] VITALS: BP 134/59; PULSE 66; RESP 16; TEMP 36.2; O2SAT 97
--- NOTE | 2025-05-09 09:48 | ED_ITS ---
HPI - Skin/Abscess/Foreign Bdy General Chief complaint: Skin/Abscess/Foreign Body Stated complaint: INSECT BITE/RASH Time Seen by Provider: 05/09/25 09:44 Source: patient and RN notes reviewed Mode of arrival: ambulatory Limitations: no limitations History of Present Illness HPI narrative: Patient presents today complaining of a pruritic rash to the left arm, left, forehead x4 days. She has been using topical each cream and antibiotic. She is unsure of any new exposures at home or outside. She has had something similar in the past. Related Data Home Medications ?Medication ?Instructions ?Recorded ?Confirmed ?Last Taken ?Type hydrochlorothiazide 12.5 mg capsule 12.5 mg PO DAILY 07/02/20 04/16/25 09/29/20 History omega 1-drd-msd-fish oil 300 1 cap PO DAILY 08/16/23 04/16/25 Unknown History mg-1,000 mg capsule (Fish Oil) calcium carbonate 500 mg PO DAILY 06/12/24 04/16/25 Unknown History mecobalamin (vitamin B12) 500 mcg 500 mcg PO DAILY 06/12/24 04/16/25 Unknown History chewable tablet ascorbic acid (vitamin C) 1,000 mg 1 g PO DAILY 12/20/24 04/16/25 Unknown History capsule vitamins A,C,G-wkwb-iofxmz 2,148 2 tablet PO BID 12/20/24 04/16/25 Unknown History mcg-113 mg-45 mg-17.4 mg tablet (PreserVision AREDS) acetaminophen 500 mg tablet 1,000 mg PO DAILY 04/16/25 04/16/25 Unknown History (Tylenol Extra Strength) cetirizine 10 mg tablet (24Hour 10 mg PO DAILY PRN 04/16/25 04/16/25 Unknown History Allergy) Allergies Allergy/AdvReac Type Severity Reaction Status Date / Time No Known Allergies Allergy Verified 05/09/25 09:44 FOR[facility], [facility] Past Medical History Medical History Sludge in gallbladder 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 Dry throat Dysphonia Diverticulosis Family hx of colon cancer Hx of adenomatous colonic polyps Nonerosive esophageal reflux disease Oropharyngeal dysphagia Aortic stenosis mild GERD (gastroesophageal reflux disease) Asthma Breast cancer 2010, treated with lumpectomy and adjuvant radiotherapy Hypertension dx about 2009 Surgical History Surgical History S/P cardiac pacemaker procedure Medtronic pacemaker for sinus node dysfunction H/O lumpectomy 2010 Family History Family History Father Hypertension Family history of coronary artery disease Family history of malignant neoplasm Patient's father is Dementia Grandparent Cerebrovascular accident Mother Carcinoma of colon Family history of malignant neoplasm Patient's mother is Alzheimer disease Sibling Patient's sister is in good health Patient's brother is in good health Diabetes mellitus Social History Social History Years smoked: 10 Smoking status: Former smoker Tobacco type: cigarettes Second hand tobacco smoke exposure: Yes Smoking end date: 11/07/82 Additional smoking assessment comments: STATES 1PK/DAY-QUITE 40+ YRS AGO Alcohol intake: current Drinks per week: 1 Alcohol use details: Occasional red wine. Occasional gin and tonic when her sister visits. Substance use: never Substance use type: does not use Do You Feel Safe in your Home?: Yes Lack of Transportation: No Lack of Food: Never True Current Housing: I Have Housing Concerned About Future Housing: No Difficulty Paying Gas/Electric Bills: No Difficulty Paying for Meds: No Currently Unemployed: No Education: High School Diploma/GED Difficulty w/ Childcare or Family Care: No Living arrangements: with family Additional living arrangements comments: Resides with spouse Occupation/Education: retired Gender identity (if verbalized by the patient): Female Spiritual care concerns: No Agree to blood products: Yes Comments At time of signature, I have reviewed and agree with nursing past medical, surgical, social and family history unless otherwise noted. Please see nursing chart for further information. There is no relevant family history pertinent to the presenting complaint Exam Narrative: GENERAL: Well-appearing, well-nourished, and in no acute distress. HEAD: Normocephalic, atraumatic. EYES: EOMI. No redness or drainage. Conjunctivae normal. ENT: Mucous membranes pink and moist. NECK: Normal AROM. CHEST: No respiratory distress. EXTREMITIES: Normal range of motion. No edema. SKIN: Warm, dry. Capillary refill normal. Normal skin turgor. Left upper and lower Arm with multiple erythematous papules and scabbed lesions. Similar papules to the forehead, left anterior hip and lower abdomen. No induration, fluctuance, crusting, or drainage. NEURO: No focal deficits. Alert and oriented x3. Gait steady. PSYCH: Normal affect. No signs of depression or anxiety. Course Course Level of Care: Express Care Visit Vital Signs Vital signs: Vital Signs Temperature 97.2 F L 05/09/25 09:45 Pulse Rate 66 05/09/25 09:45 Respiratory Rate 16 05/09/25 09:45 Blood Pressure 134/59 L 05/09/25 09:45 Pulse Oximetry 97 05/09/25 09:45 Oxygen Delivery Room Air 05/09/25 09:45 Temperature 97.2 F L 05/09/25 09:45 Pulse Rate 66 05/09/25 09:45 Respiratory Rate 16 05/09/25 09:45 Blood Pressure 134/59 L 05/09/25 09:45 Pulse Oximetry 97 05/09/25 09:45 Oxygen Delivery Room Air 05/09/25 09:45 Reviewed MDM - Skin/Abscess/Foreign Bdy MDM Narrative Medical decision making narrative: Pleasant 79-year-old female presents today with a pruritic rash that is consistent with contact dermatitis. States she has recently been on a Medrol Dosepak for unrelated issue. At this time, this rash can be managed with topical steroids. Prescription for triamcinolone sent to pharmacy. Told patient not to use this on her face or genitalia. States she will get some uqtz-wav-buyxomm hydrocortisone for rash on her forehead, which is very minor. She takes a daily antihistamine at night should be helping with the itch. Anticipatory guidance given. Vital signs stable. Differential Diagnosis Differential diagnosis: Likely abscess of skin or subcutaneous tissue, viral exanthem, dermatophytosis, urticaria, herpes zoster, cellulitis, eczema, insect bites, impetigo and contact dermatitis Critical Care Time Critical Care Time Critical Care Time: No Discharge Plan Discharge Clinical Impression: Contact dermatitis Patient Disposition: Home Condition: Stable Instructions: Contact Dermatitis (ED) Additional Instructions: Please use the triamcinolone for your rash, this on your face or genitalia. You may use rsbl-agc-grsufgm hydrocortisone on your face. Continue your daily antihistamine for itching. Follow-up with your PCP with any additional concerns. Patient Language: Sinhala Prescriptions: New triamcinolone acetonide 0.1 % cream 1 applic topical BID Qty: 30 0RF No Action omega 0-cqe-kvd-fish oil [Fish Oil] 300-1,000 mg capsule 1 cap PO DAILY calcium carbonate 500 mg calcium (1,250 mg) tablet 500 mg PO DAILY mecobalamin (vitamin B12) 500 mcg tablet,chewable 500 mcg PO DAILY PreserVision AREDS 2,148 mcg-113 mg-45 mg-17.4mg tablet 2 tablet PO BID Rx Instructions: administer with AM and PM meals ascorbic acid (vitamin C) 1,000 mg capsule 1 g PO DAILY cetirizine [24Hour Allergy] 10 mg tablet 10 mg PO DAILY PRN acetaminophen [Tylenol Extra Strength] 500 mg tablet 1,000 mg PO DAILY colchicine 0.6 mg tablet See Rx Instructions PO BID Qty: 3 0RF Rx Instructions: take 2 tablets PO x 1, then 1 tablet PO 1 hour later. hydrochlorothiazide 12.5 mg Capsule 12.5 mg PO DAILY losartan 50 mg tablet See Rx Instructions .ROUTE .COMPLEX Qty: 90 3RF Dose Instruction: TAKE 1 TABLET BY MOUTH DAILY Rx Instructions: TAKE 1 TABLET BY MOUTH DAILY albuterol sulfate 90 mcg/actuation HFA aerosol inhaler 1 inh inhalation Q4H Qty: 25.5 2RF amlodipine 10 mg tablet See Rx Instructions .ROUTE .COMPLEX Qty: 90 3RF Dose Instruction: TAKE 1 TABLET BY MOUTH DAILY Rx Instructions: TAKE 1 TABLET BY MOUTH DAILY atorvastatin 10 mg tablet 10 mg PO QHS Qty: 90 1RF Interventions: Discharge Disposition Last Done: 05/09/25 10:00 Follow-up/Referrals: Henrietta Dahl [employer] [Primary Care Provider] - Time of Disposition: 09:56 Discharge Date/Time: 05/09/25 10:00
== END 2025-05-09 10:00 | disposition home or self-care (01) ==
PROVIDERS: PCP Nurse Practitioner
DX: L25.9 Unspecified contact dermatitis, unspecified cause (principal); Z87.891 Personal history of nicotine dependence; I35.0 Nonrheumatic aortic (valve) stenosis; J45.909 Unspecified asthma, uncomplicated; K21.9 Gastro-esophageal reflux disease without esophagitis; I10 Essential (primary) hypertension; Z85.3 Personal history of malignant neoplasm of breast; Z95.0 Presence of cardiac pacemaker
CPT/HCPCS: 99213; G0463

== ENCOUNTER 2025-07-12 10:28 | Emergency (ER) | payer MEDICARE, SELFPAY ==
--- NOTE | 2025-07-12 10:32 | ED_ITS ---
HPI - General Adult General Chief complaint: Extremity Problem,Nontraumatic Stated complaint: R Hand Pain Time Seen by Provider: 07/12/25 10:37 Source: patient, RN notes reviewed and old records reviewed Mode of arrival: ambulatory Limitations: no limitations History of Present Illness HPI narrative: 79-year-old female presents to the [facility] with right hand pain and swelling. States she is not able to sleep. Unable to move fingers. Full range of motion of the elbow. Decreased range of motion of the wrist. Capillary refill delayed. Positive radial pulse palpated Symptoms started on Tuesday, has gradually gotten worse. Denies any injury Patient with pain even with light palpation. Has taken Tylenol for her pain Onset (ago): day(s) Severity: severe Severity scale (1-10): 7 Quality: burning and sharp Pain Consistency: constant Relieving factors: none Exacerbating factors: movement Treatments prior to arrival: none Related Data Home Medications ?Medication ?Instructions ?Recorded ?Confirmed ?Last Taken ?Type hydrochlorothiazide 12.5 mg capsule 12.5 mg PO DAILY 0 07/02/20 05/23/25 09/29/20 History omega 8-ojl-ond-fish oil 300 1 cap PO DAILY 08/16/23 0 05/23/25 Unknown History mg-1,000 mg capsule (Fish Oil) calcium carbonate 500 mg PO DAILY 06/12/24 Unknown History mecobalamin (vitamin B12) 500 mcg 500 mcg PO DAILY 04/3005/23/25 Unknown History chewable tablet ascorbic acid (vitamin C) 1,000 mg 1 g PO DAILY 05/23/25 Unknown History capsule vitamins A,C,K-rdqg-ciesik 2,148 2 tablet PO BID 12/2005/23/25 Unknown History mcg-113 mg-45 mg-17.4 mg tablet (PreserVision AREDS) acetaminophen 500 mg tablet 1,000 mg PO DAILY 04/16/25 05/23/25 Unknown History (Tylenol Extra Strength) cetirizine 10 mg tablet (24Hour 10 mg PO DAILY PRN 08/3105/23/25 Unknown History Allergy) Allergies Allergy/AdvReac Type Severity Reaction Status Date / Time No Known Allergies Allergy Verified 07/12/25 11:32 Review of Systems Review of Systems: All systems reviewed & are unremarkable except as noted in HPI and below Constitutional: Constitutional: Reports no additional constitutional complaints Musculoskeletal: Musculoskeletal: Reports as per HPI, Reports joint swelling and Reports limited range of motion Integumentary/Breasts: Skin/Breast: Reports as per HPI [facility] Past Medical History Medical History (Updated 07/12/25 @ 14:35 by Cindi Jeffries MD) Right hand dominant Sludge in gallbladder 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 Dry throat Dysphonia Diverticulosis Family hx of colon cancer Hx of adenomatous colonic polyps Nonerosive esophageal reflux disease Oropharyngeal dysphagia Aortic stenosis mild GERD (gastroesophageal reflux disease) Asthma Breast cancer 2010, treated with lumpectomy and adjuvant radiotherapy Hypertension dx about 2009 Surgical History Surgical History S/P cardiac pacemaker procedure Medtronic pacemaker for sinus node dysfunction H/O lumpectomy 2010 Family History Family History Father Hypertension Family history of coronary artery disease Family history of malignant neoplasm Patient's father is Dementia Grandparent Cerebrovascular accident Mother Carcinoma of colon Family history of malignant neoplasm Patient's mother is Alzheimer disease Sibling Patient's sister is in good health Patient's brother is in good health Diabetes mellitus Social History Social History Years smoked: 10 Smoking status: Former smoker Tobacco type: cigarettes Second hand tobacco smoke exposure: Yes Smoking end date: 11/07/82 Additional smoking assessment comments: STATES 1PK/DAY-QUITE 40+ YRS AGO Alcohol intake: current Drinks per week: 1 Alcohol use details: Occasional red wine. Occasional gin and tonic when her sister visits. Substance use: never Substance use type: does not use Do You Feel Safe in your Home?: Yes Lack of Transportation: No Lack of Food: Never True Current Housing: I Have Housing Concerned About Future Housing: No Difficulty Paying Gas/Electric Bills: No Difficulty Paying for Meds: No Currently Unemployed: No Education: High School Diploma/GED Difficulty w/ Childcare or Family Care: No Living arrangements: with family Additional living arrangements comments: Resides with spouse Occupation/Education: retired Gender identity (if verbalized by the patient): Female Spiritual care concerns: No Agree to blood products: Yes Comments At the time of my signature, I reviewed and agree with the nursing past medical, surgical, social, and family history. There is no relevant family history pertinent to the patient complaint. Exam Const: General: cooperative, no acute distress, well developed, alert, acute distress moderate (pain), in distress, uncomfortable and well nourished Nutritional Appearance: well nourished Orientation/consciousness: patient oriented x3 Limitations: no limitations HENMT: Head: normal to inspection Neck: Neck: full ROM Chest: Chest palpation & inspection: normal inspection of the chest Resp: Effort & Inspection: normal respiratory effort and able to speak in complete sentences Cardio: Rate: regular rate Skin: Wounds: no wounds Neuro: General: patient oriented x3, gait normal, moves all extremities and no meningeal signs Cognition (Neuro): normal cognition Speech: normal speech Gait exam (Neuro): Normal gait present Extrem: General: normal to inspection, full ROM, capillary refill normal and normal gait Right upper extremity: elbow/forearm swelling of the mid-shaft forearm (To wrist) and normal ROM (Elbow), wrist tenderness, swelling and abnormal ROM and Extremity exam: right hand tenderness of the dorsal hand, of the palm, of the thumb, of the 2nd digit, of the 3rd digit, of the 4th digit and of the 5th digit, vascular exam radial pulse present and abnormal capillary refill of all fingers and of the entire hand, abnormal ROM of finger and swelling of the dorsal hand, of the palm, of the thumb, of the 2nd digit, of the 3rd digit, of the 4th digit and of the 5th digit; no abrasions and no lacerations Psych: Appearance: grossly normal and well kempt Mental Status: mental status grossly normal Speech and movement: Normal speech and movement present and Clear speech present Affect: normal affect Attitude: cooperative Course Course Level of Care: Express Care Visit Vital Signs Vital signs: Vital Signs Temperature 97.5 F L 07/12/25 10:37 Pulse Rate 72 07/12/25 10:37 Respiratory Rate 18 07/12/25 10:37 Blood Pressure 138/52 L 07/12/25 10:37 Pulse Oximetry 98 07/12/25 10:37 Oxygen Delivery Room Air 07/12/25 10:37 Temperature 97.5 F L 07/12/25 10:37 Pulse Rate 72 07/12/25 10:37 Respiratory Rate 18 07/12/25 10:37 Blood Pressure 138/52 L 07/12/25 10:37 Pulse Oximetry 98 07/12/25 10:37 Oxygen Delivery Room Air 07/12/25 10:37 Reviewed Transfer Transfered to: [place] Transportation: Other (POV) Transfer rationale: Patient with significant swelling and pain without injury to the right upper extremity, mid forearm, wrist, hand and fingers. Accepting physician: Dr. Duarte Medical Decision Making MDM Narrative Medical decision making narrative: Patient sitting in exam room. Patient is nontoxic but appears extremely uncomfortable. Vitals are stable Differential Diagnosis Differential Diagnosis: Tendinitis, RA, blood clot, cellulitis, gout, lymphedema Medical Records Medical records reviewed: Yes I reviewed the external patient's medical records. Vital Signs Vital Signs: Vital Signs Temperature 97.5 F L 07/12/25 10:37 Pulse Rate 72 07/12/25 10:37 Respiratory Rate 18 07/12/25 10:37 Blood Pressure 138/52 L 07/12/25 10:37 Pulse Oximetry 98 07/12/25 10:37 Oxygen Delivery Room Air 07/12/25 10:37 Temperature 97.5 F L 07/12/25 10:37 Pulse Rate 72 07/12/25 10:37 Respiratory Rate 18 07/12/25 10:37 Blood Pressure 138/52 L 07/12/25 10:37 Pulse Oximetry 98 07/12/25 10:37 Oxygen Delivery Room Air 07/12/25 10:37 Reviewed Lab Data Lab results reviewed: Yes I reviewed the patient's lab results. Labs: Reviewed Critical Care Time Critical Care Time Critical Care Time: No Discharge Plan Discharge Clinical Impression: Swelling of right hand Patient Disposition: Acute Care Hospital Condition: Stable Patient Language: Guamanian Prescriptions: No Action triamcinolone acetonide 0.1 % cream 1 applic topical BID Qty: 30 0RF omega 0-xay-tqp-fish oil [Fish Oil] 300-1,000 mg capsule 1 cap PO DAILY calcium carbonate 500 mg calcium (1,250 mg) tablet 500 mg PO DAILY mecobalamin (vitamin B12) 500 mcg tablet,chewable 500 mcg PO DAILY PreserVision AREDS 2,148 mcg-113 mg-45 mg-17.4mg tablet 2 tablet PO BID Rx Instructions: administer with AM and PM meals ascorbic acid (vitamin C) 1,000 mg capsule 1 g PO DAILY cetirizine [24Hour Allergy] 10 mg tablet 10 mg PO DAILY PRN acetaminophen [Tylenol Extra Strength] 500 mg tablet 1,000 mg PO DAILY colchicine 0.6 mg tablet See Rx Instructions PO BID Qty: 3 0RF Rx Instructions: take 2 tablets PO x 1, then 1 tablet PO 1 hour later. cephalexin 500 mg tablet 500 mg PO Q6H 5 Days Qty: 19 0RF Rx Instructions: received first dose in ED 07/12 approx 2:30pm acetaminophen 500 mg capsule 1,000 mg PO Q6H PRN (Reason: pain) Qty: 30 0RF hydrochlorothiazide 12.5 mg Capsule 12.5 mg PO DAILY losartan 50 mg tablet See Rx Instructions .ROUTE .COMPLEX Qty: 90 3RF Dose Instruction: TAKE 1 TABLET BY MOUTH DAILY Rx Instructions: TAKE 1 TABLET BY MOUTH DAILY amlodipine 10 mg tablet See Rx Instructions .ROUTE .COMPLEX Qty: 90 3RF Dose Instruction: TAKE 1 TABLET BY MOUTH DAILY Rx Instructions: TAKE 1 TABLET BY MOUTH DAILY atorvastatin 10 mg tablet 10 mg PO QHS Qty: 90 1RF albuterol sulfate 90 mcg/actuation HFA aerosol inhaler 1 inh inhalation Q4H Qty: 25.5 2RF Follow-up/Referrals: PHYSICIAN,[employer]PERINTENDENT [Primary Care Provider, Internal Medicine]
[2025-07-12 10:37] VITALS: BP 138/52; PULSE 72; RESP 18; TEMP 36.4; O2SAT 98
== END 2025-07-12 10:54 | disposition short-term general hospital (02) ==
PROVIDERS: Emergency Provider Nurse Practitioner
DX: R22.31 Localized swelling, mass and lump, right upper limb (principal); Z87.891 Personal history of nicotine dependence; I10 Essential (primary) hypertension; J45.909 Unspecified asthma, uncomplicated; K21.9 Gastro-esophageal reflux disease without esophagitis; Z85.3 Personal history of malignant neoplasm of breast; Z95.0 Presence of cardiac pacemaker
CPT/HCPCS: 99212; 99213; G0463

== ENCOUNTER 2025-07-12 11:13 | Emergency (ER) | payer MEDICARE, SELFPAY ==
--- NOTE | ~2025-07-12 | XR_ITS ---
EXAM/ PROCEDURE: XR hand RT min 3V - 07/12/2025 11:40 CDT HISTORY: 79 years old Female with Pain and Swelling X 3 DAYS, NO INJURY COMPARISON: None available TECHNIQUE: Three view(s) FINDINGS/ IMPRESSION: There are no fractures or dislocations.Joint space narrowing, subchondral sclerosis, subchondral cyst formation and osteophyte formation, compatible with moderate osteoarthritis. Reviewed, dictated and finalized at location N.
--- NOTE | ~2025-07-12 | US_ITS ---
EXAMINATION: US venous doppler UE RT DATE: 07/12/2025 13:43 INDICATION: Right arm pain TECHNIQUE: Pal scale images with and without compression and Doppler images of the right upper extremity veins were obtained. COMPARISON: None. FINDINGS: The right internal jugular vein, subclavian vein, axillary vein, brachial veins, basilic vein, cephalic vein, radial vein, and ulnar vein are patent. IMPRESSION: 1. Patent right upper extremity veins. No evidence of deep venous thrombosis. Reviewed, dictated and finalized at location O.
[2025-07-12 11:28] VITALS: BP 142/55; PULSE 65; RESP 18; TEMP 36.9; O2SAT 100
--- OUTSIDE RECORDS SUMMARY | 2025-07-12 11:35 | XMS_ITS | Clinical Summary ---
Author Organization [facility] [address] Address [address] [place] [address] Care Team Providers Care Computational Theory Scientist Name Role Phone Truong Chavarria DO Primary Care Provider [phone] Allergies No known active allergies Medications albuterol HFA (PROVENTIL HFA,VENTOLIN HFA,PROAIR HFA) 90 mcg/actuation inhaler Inhale 2 puffs every 6 (six) hours as needed for wheezing Active amLODIPine (NORVASC) 10 mg tablet Take 0.5 tablets (5 mg total) by mouth daily Active losartan (COZAAR) 50 mg tablet Take 1 tablet (50 mg total) by mouth daily Active fluticasone propionate (FLONASE) 50 mcg/actuation nasal spray Administer 1 spray into each nostril daily Active cyanocobalamin (Vitamin B-12) 1,000 mcg tabletIndications :Prevention of Vitamin B12 Deficiency Take 1 tablet (1,000 mcg total) by mouth daily Active krill yny-zvftf-7-dha-e pa 300-90 (27-45) mg capsule Take by [...] DAILY 90 capsule 3 4 Active vit C,L-Nj-letnx-lute in-johnsonan 250-90-40-1 mg capsule Take by mouth Active calcium carbonate (CALCIUM 500 ORAL) Take by mouth Active ascorbic acid (vitamin C) 1,000 mg tablet Take 1 tablet (1,000 mg total) by mouth daily Active Active Problems Problem Noted Date Diagnosed Date KATELYNN (obstructive sleep apnea) 06/13/2025 Hypersomnolence 11/18/2021 PAF (paroxysmal atrial fibrillation) 05/14/2021 Visit for wound check 07/10/2020 Cardiac pacemaker in situ 07/07/2020 Overview (11/18/2021): Medtronic Barbara Dual Pacemaker. Dx; SSS, Symptomatic Bradycardia, PAF. [facility] [employer] remote [facility]. Lack of energy 05/26/2020 Nonrheumatic aortic valve stenosis 05/26/2020 Bradycardia 05/26/2020 Hyperlipidemia LDL goal <100 05/26/2020 Essential hypertension 05/26/2020 Ectopic atrial rhythm 05/26/2020 Encounters Date Type Department Care Team Description 06/25/2025 7:15 AM CDT Ancillary Procedure [facility] [address] [facility] [address] [place] [id number] Cardiac pacemaker in situ; SSS (sick sinus syndrome) (HCC); PAF (paroxysmal atrial fibrillation); Symptomatic bradycardia 06/13/2025 9:30 AM CDT Office Visit [facility] [address] [facility] [address] [place] [phone] Alin Shelley MD Essential hypertension (Primary Dx); Nonrheumatic aortic valve stenosis; PAF (paroxysmal atrial fibrillation); Hyperlipidemia LDL goal <100; Cardiac pacemaker in situ; KATELYNN (obstructive sleep apnea) from Last 3 Months Surgical History Surgery [...] on file Legal Sex Female 11:49 AM [employer] Gender Identity Not on file Sexual Orientation Not on file Obstetrics History Last Filed Vital Signs Vital Sign Reading Time Taken Comments Blood Pressure 120/50 06/13/2025 9:35 AM CDT Pulse 70 06/13/2025 9:35 AM CDT Temperature 36.3 C (97.3 F) 06/06/2020 1:56 PM CDT Respiratory Rate 16 07/26/2023 10:44 AM CDT Oxygen Saturation 97% 06/13/2025 9:35 AM CDT Inhaled Oxygen Concentration - - Weight 73.9 kg (163 lb) 06/13/2025 9:35 AM CDT Height 162.6 cm (5' 4) 06/13/2025 9:35 AM CDT Body Mass Index 27.98 06/13/2025 9:35 AM CDT Plan of Treatment Health Maintenance Due Date Last Done Comments Depression Screening 1943 Fall Risk Assessment 1943 Osteoporosis Screening-Bone Density Scan 1943 DTaP/Tdap/Td Vaccine (1 - Tdap) 1954 Hepatitis B Screening 1961 Pneumococcal vaccine 65+ (1 of 1 - PCV) 1993 Zoster Vaccine (1 of 2) 1993 Well Visit 65+ 2008 Influenza Vaccine (#1) 2025 Procedures Procedure Name Priority Date/Time Associated Diagnosis Comments DEVICE CHECK - REMOTE Routine 06/26/2025 8:02 AM CDT Cardiac pacemaker in situ SSS (sick sinus syndrome) (HCC) PAF (paroxysmal atrial fibrillation) Symptomatic bradycardia from Last 3 Months Results * DEVICE CHECK - REMOTE (06/26/2025 8:02 AM CDT) Anatomical Region Laterality Modality Other Narrative 07/10/2025 12:19 PM CDT Medtronic Barbara Dual Pacemaker. Dx; SSS, Symptomatic Bradycardia, PAF. DOI 07/03/2020-[facility]. [employer] remote monitoring. Routine AAIR <> DDDR Pacemaker Remote. Transmission attached. Battery status: 3.00 V , 8.4 years remaining battery life to MENDEL. Stable lead impedances, pacing and sensing thresholds. Presenting rhythm: AP/VS AP-99.7%, LEGISLATIVE AIDE-0.3% 1 AT/AF episodes noted, longest episode was 1 hour and 43 minutes in duration, IEGM demonstrates AFib. AF Dillwyn < 0.1%. 1 Ventricular high rate episodes detected, IEGM demonstrates SVT. Medications: Amlodipine 10 mg, losartan 50 mg, patient has refused anticoagulation in the past See scanned report. Office pacemaker follow up: 12/04/25 [employer] remote f/u for 10/02/25. Kaushik Jade RN us Alin Shelley MD CV C[facility]IAC [facility] Final Result from Last 3 Months Insurance [facility] MEDICARE MEDICARE [facility] MEDICARE MEDICARE Care Teams Computational Theory Scientist Relationship Specialty Start Date End Date Truong Chavarria DO PCP - General Internal Medicine 09/22/17
--- NOTE | 2025-07-12 12:11 | ED_ITS ---
HPI - Extremity Injury (Upper) General Chief Complaint: Extremity Injury, Upper Stated Complaint: right hand swelling, unknown cause Time Seen by Provider: 07/12/25 12:08 Source: patient and family Mode of arrival: ambulatory Limitations: no limitations History of Present Illness HPI narrative: Hxvqc-xdsh-crmynuig female Patient presents with right hand and upper extremity swelling that started on Tuesday, 3 days ago. She was initially seen at urgent care today who recommended presenting to the emergency department for further evaluation/escalated level of care. She denies any recent injury or trauma. She does note that 4 weeks ago she fell and struck her elbow but otherwise had not been having any issues recently. No imaging had yet been obtained of extremity. Patient reports that she has been taking 1000 mg of acetaminophen occasionally. Patient was initially confused and stated that it had been a 1000 mg of ibuprofen but when we discussed dosing formulations of acetaminophen verses NSAIDs it was clarified that she has been taking 2 500 mg tablets of acetaminophen. Patient reports that she is judicious with taking acetaminophen due to having bad kidneys. She reports the pain has been quite intense and causes her to have difficulty sleeping and even walking. Patient reports that she is also occasionally experiencing some numbness throughout the hand and it is quite tender to touch. She denies any fevers or chills. She reports that occasionally it feels like she has shooting pain like electricity running down her arm from shoulder. This has never happened before although she does report that she will occasionally experience arthritis flares. Denies any history of MRSA or IV drug use. Reports pain at 10 out 10 severity. History of breast cancer status post lumpectomy. Patient reports the pain as a burning sensation as well. Related Data Home Medications ?Medication ?Instructions ?Recorded ?Confirmed ?Last Taken ?Type hydrochlorothiazide 12.5 mg capsule 12.5 mg PO DAILY 0 07/02/20 05/23/25 09/29/20 History omega 6-eww-wvy-fish oil 300 1 cap PO DAILY 08/16/23 0 05/23/25 Unknown History mg-1,000 mg capsule (Fish Oil) calcium carbonate 500 mg PO DAILY 06/12/24 Unknown History mecobalamin (vitamin B12) 500 mcg 500 mcg PO DAILY 04/3005/23/25 Unknown History chewable tablet ascorbic acid (vitamin C) 1,000 mg 1 g PO DAILY 05/23/25 Unknown History capsule vitamins A,C,K-fmxb-gigjmm 2,148 2 tablet PO BID 12/2005/23/25 Unknown History mcg-113 mg-45 mg-17.4 mg tablet (PreserVision AREDS) acetaminophen 500 mg tablet 1,000 mg PO DAILY 04/16/25 05/23/25 Unknown History (Tylenol Extra Strength) cetirizine 10 mg tablet (24Hour 10 mg PO DAILY PRN 08/3105/23/25 Unknown History Allergy) Allergies Allergy/AdvReac Type Severity Reaction Status Date / Time No Known Allergies Allergy Verified 07/12/25 11:32 [facility] Past Medical History Medical History (Updated 07/12/25 @ 14:35 by Cindi Jeffries MD) Right hand dominant Sludge in gallbladder 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 Dry throat Dysphonia Diverticulosis Family hx of colon cancer Hx of adenomatous colonic polyps Nonerosive esophageal reflux disease Oropharyngeal dysphagia Aortic stenosis mild GERD (gastroesophageal reflux disease) Asthma Breast cancer 2010, treated with lumpectomy and adjuvant radiotherapy Hypertension dx about 2009 Surgical History Surgical History S/P cardiac pacemaker procedure Medtronic pacemaker for sinus node dysfunction H/O lumpectomy 2010 Family History Family History Father Hypertension Family history of coronary artery disease Family history of malignant neoplasm Patient's father is Dementia Grandparent Cerebrovascular accident Mother Carcinoma of colon Family history of malignant neoplasm Patient's mother is Alzheimer disease Sibling Patient's sister is in good health Patient's brother is in good health Diabetes mellitus Social History Social History Years smoked: 10 Smoking status: Former smoker Tobacco type: cigarettes Second hand tobacco smoke exposure: Yes Smoking end date: 11/07/82 Additional smoking assessment comments: STATES 1PK/DAY-QUITE 40+ YRS AGO Alcohol intake: current Drinks per week: 1 Alcohol use details: Occasional red wine. Occasional gin and tonic when her sister visits. Substance use: never Substance use type: does not use Do You Feel Safe in your Home?: Yes Lack of Transportation: No Lack of Food: Never True Current Housing: I Have Housing Concerned About Future Housing: No Difficulty Paying Gas/Electric Bills: No Difficulty Paying for Meds: No Currently Unemployed: No Education: High School Diploma/GED Difficulty w/ Childcare or Family Care: No Living arrangements: with family Additional living arrangements comments: Resides with spouse Occupation/Education: retired Gender identity (if verbalized by the patient): Female Spiritual care concerns: No Agree to blood products: Yes Exam 2 Narrative: GENERAL: Well-appearing, well-nourished HEAD: Normocephalic, atraumatic. EYES: Non injected, non icteric ENT: Nares clear, no rhinorrhea or epistaxis. Gross auditory acuity intact. NECK: Supple. No meningismus. CHEST: Speaking in full sentences. No respiratory distress. HEART: Regular rate and rhythm. 2+ radial pulse in RUE. Brisk capillary refill in multiple digits in right hand. ABDOMEN: Soft, nondistended. EXTREMITIES: Right upper extremity edema, primarily in the right hand but extending proximally into forearm. TTP throughout hand and dorsum. Digits are somewhat swollen although most of the swelling is along the dorsum of the right hand. Elbow not TTP. Wrist tenderness. Patient initially jumps with palpation of distal digits (during cap refill assessment) though states due to being startled, not pain. Arthritis changes of digits, multiple, at PIP joints. SKIN: Warm, dry. Mild erythema in RUE. Well healing ecchymosis near right elbow, at proximal forearm. Skin otherwise intact except for well healing scab, subcentimeter lesion near right wrist /distal forearm. No streaking redness. NEURO: No focal deficits. Patient is able to perform some flexion extension of digits though limited due to pain and swelling. Alert and oriented. Answering questions. Following commands. Normal speech without aphasia or dysarthria. PSYCH: Normal mood and affect. Course Vital Signs Vital signs: Vital Signs Temperature 98.4 F 07/12/25 11:28 Pulse Rate 65 07/12/25 11:28 Respiratory Rate 18 07/12/25 11:28 Blood Pressure 142/55 H 07/12/25 11:28 Pulse Oximetry 100 07/12/25 11:28 Oxygen Delivery Room Air 07/12/25 11:28 Temperature 98.4 F 07/12/25 11:28 Pulse Rate 75 07/12/25 14:34 Respiratory Rate 18 07/12/25 14:34 Blood Pressure 125/51 L 07/12/25 14:34 Pulse Oximetry 98 07/12/25 14:34 Oxygen Delivery Room Air 07/12/25 11:28 MDM - Extremity Injury (Upper) MDM Narrative Medical decision making narrative: Patient presents with right hand/upper extremity swelling of 3 days duration. She is right-hand dominant. In the emergency department she is afebrile with acceptable vital signs, slightly elevated systolic blood pressure slightly decreased diastolic blood pressure. Mean arterial pressure 84mmHg. Patient reports that she is judicious with taking acetaminophen due to having bad kidneys. Patient educated that APAP processed by the liver and NSAIDs are metabolized by kidneys. No report of kidney dysfunction in EMR / PMH. It had been noted that she gets dizzy when getting up per review of UC note. Hope and orthostatic VS ordered as are basic labs. Plain film image ordered from triage negative for acute process. DVT study of UE ordered. Normocytic anemia. Per review of the EMR, her hemoglobin has been variable but otherwise appears consistent with previous. On assessment of orthostatic vital signs, it was noted that patient had a drop in systolic blood pressure from seated to standing position. CRP elevated. Patient's most recent creatinine was 0.95. Today's is therefore elevated, will give 1 L IV fluids for presumed DEBORAH although per review of the EMR patient's kidney function has been variable. DVT study negative as below. Patient reassessed and notes that she is feeling much better. There is still swelling although she is able to demonstrate better range of motion particular is able to flex wrist to approximately 110?. She is able to demonstrate some flexion of fingers although not able to make full fist. Point of care ultrasound (POCUS) is performed by myself at bedside approximately 2:30pm which does demonstrate cobblestoning consistent with edema. Although the erythema is not distinctly demarcated to allow for clear marking with skin pen, the extremity is warmer to the touch than contralateral side. Reasonable to treat for cellulitis. Discussed patient's workup and findings with her. She verifies understanding and is in agreement with trialing outpatient PO therapy but given strict ED return precautions if not improving in 1-2 days. Notes that she typically is able to see either her PCP or PCP's AB within a few days for any issues. She had been given a referral to Rheumatology in [place] but notes that she hasn't made an appointment due to distance. First dose cephalexin given in the emergency department. Rest of course prescribed. Patient is aware that I do still recommend she follow-up with her primary care physician and, if possible, follow through with rheumatology appointment. Aware she is supposed to take entire course of antibiotics even if improving. Differential Diagnosis Differential diagnosis: Likely other (VTE; cellulitis; lymphedema; arthritis; Tendinitis, ) Medical Records Attestation: I reviewed the patient's medical records. Medical records narrative: Express Care note reviewed Lab Data Attestation: I reviewed the patient's lab results. 07/12/25 12:38 07/12/25 12:38 Labs: Lab Results 07/12/25 Range/Units 12:38 WBC 9.8 (4.5-10.0) K/mm3 RBC 4.14 L (4.2-5.4) M/mm3 Hgb 11.0 L (12.0-15.0) g/dL Hct 34.9 L (37.0-47.0) % MCV 84.3 (80-100) fl MCH 26.6 (26-34) pg MCHC 31.5 L (32-36) g/dl RDW 13.2 (11.5-14.5) % Plt Count 198 (150-375) k/mm3 MPV 10.3 (7.4-10.4) fl Immature Gran % (Auto) 0.3 (0-0.5) % Neut % (Auto) 71.3 (45.5-73.1) % Lymph % (Auto) 18.7 (18.3-44.2) % Becker % (Auto) 8.6 H (2.6-8.5) % Eos % (Auto) 0.7 (0-4.4) % Baso % (Auto) 0.4 (0.2-1.2) % Lymph # (Auto) 1.84 (0.9-3.2) K/mm3 Becker # (Auto) 0.8 H (0.1-0.6) K/mm3 Eos # (Auto) 0.1 (0-0.3) K/mm3 Baso # (Auto) 0.0 (0.0-0.1) K/mm3 Abs Immat Gran (auto) 0.03 (0.00-0.031) K/mm3 Absolute Neuts (auto) 7.0 H (1.3-6.7) K/mm3 Absolute Nucleated RBC 0.000 (0.0-0.012) K/mm3 Nucleated RBC % 0.0 (0.0-0.2) % ESR Pending PT 15.3 H (11.1-14.7) Seconds INR 1.2 APTT 31.6 (22.3-36.8) Seconds Sodium 134 L (137-145) mmol/L Potassium 3.8 (3.4-5.0) mmol/L Chloride 101 (98-107) mmol/L Carbon Dioxide 26 (22-30) mmol/L Anion Gap 7 (4-12) mmol/L BUN 22 H D (7-17) mg/dL Creatinine 1.16 H (0.7-1.0) mg/dL Estim Creat Clear Calc 32 ml/min Estimated GFR 45 L (59 - ) Glucose 148 H (65-110) mg/dL Calcium 9.0 (8.4-10.2) mg/dL C-Reactive Protein 7.2 H (<1.0) mg/dL Imaging Data Radiologist's impression: XRAY earlier FINDINGS/ IMPRESSION: There are no fractures or dislocations.Joint space narrowing, subchondral sclerosis, subchondral cyst formation and osteophyte formation, compatible with moderate osteoarthritis. Impressions Venous Doppler Study 07/12/25 13:46 IMPRESSION: 1. Patent right upper extremity veins. No evidence of deep venous thrombosis. Discharge Plan Discharge Clinical Impression: Normocytic anemia, CRP elevated, DEBORAH (acute kidney injury), Cellulitis of right upper extremity, Swelling of right hand Osteoarthritis of hand, right Qualifiers: Osteoarthritis type: unspecified Qualified Code(s): M19.041 - Primary osteoarthritis, right hand Patient Disposition: Home Condition: Stable Instructions: Antibiotic Form, Acute Kidney Injury (DC), Cellulitis (ED), Osteoarthritis (DC), Anemia (ED) Additional Instructions: Given your concern with your kidney function, it is reasonable to continue to avoid taking NSAIDs if desired. These are medications like ibuprofen/Advil/Motrin/Aleve. It is safe to take maximum 4000 mg per day of acetaminophen/Tylenol however. You received 1st dose of antibiotic in the emergency department with the rest of the course prescribed. Please follow up with your PCP and return to the ED if not improving in the next 24-48 hours. Recommend trying to follow up with scaffold setter, either the initial referral or seeing if an alternative in [place] is possible. Patient Language: Macedonian Prescriptions: New cephalexin 500 mg tablet 500 mg PO Q6H 5 Days Qty: 19 0RF Rx Instructions: received first dose in ED 07/12 approx 2:30pm acetaminophen 500 mg capsule 1,000 mg PO Q6H PRN (Reason: pain) Qty: 30 0RF No Action triamcinolone acetonide 0.1 % cream 1 applic topical BID Qty: 30 0RF omega 6-bzv-axy-fish oil [Fish Oil] 300-1,000 mg capsule 1 cap PO DAILY calcium carbonate 500 mg calcium (1,250 mg) tablet 500 mg PO DAILY mecobalamin (vitamin B12) 500 mcg tablet,chewable 500 mcg PO DAILY PreserVision AREDS 2,148 mcg-113 mg-45 mg-17.4mg tablet 2 tablet PO BID Rx Instructions: administer with AM and PM meals ascorbic acid (vitamin C) 1,000 mg capsule 1 g PO DAILY cetirizine [24Hour Allergy] 10 mg tablet 10 mg PO DAILY PRN acetaminophen [Tylenol Extra Strength] 500 mg tablet 1,000 mg PO DAILY colchicine 0.6 mg tablet See Rx Instructions PO BID Qty: 3 0RF Rx Instructions: take 2 tablets PO x 1, then 1 tablet PO 1 hour later. hydrochlorothiazide 12.5 mg Capsule 12.5 mg PO DAILY losartan 50 mg tablet See Rx Instructions .ROUTE .COMPLEX Qty: 90 3RF Dose Instruction: TAKE 1 TABLET BY MOUTH DAILY Rx Instructions: TAKE 1 TABLET BY MOUTH DAILY amlodipine 10 mg tablet See Rx Instructions .ROUTE .COMPLEX Qty: 90 3RF Dose Instruction: TAKE 1 TABLET BY MOUTH DAILY Rx Instructions: TAKE 1 TABLET BY MOUTH DAILY atorvastatin 10 mg tablet 10 mg PO QHS Qty: 90 1RF albuterol sulfate 90 mcg/actuation HFA aerosol inhaler 1 inh inhalation Q4H Qty: 25.5 2RF Follow-up/Referrals: PHYSICIAN NOT ON STAFF,NONSTAFF [Primary Care Provider] Henrietta Dahl, DESIGN RELEASE ENGINEER [Advanced Practice Nurse, Internal Medicine] Referral Note: PCP's AB Truong Chavarria DO [Physician, Internal Medicine] Referral Note: stated PCP Time of Disposition: 14:40
--- OUTSIDE RECORDS SUMMARY | 2025-07-12 12:20 | XMS_ITS | Clinical Summary ---
Author Organization [facility] [address] Address [address] [place] [address] Care Team Providers Care Wire Border Assembler Name Role Phone Truong Chavarria DO Primary Care Provider [phone]- [phone] Allergies No known active allergies Medications albuterol [...] mcg total) by mouth daily Active krill qnd-tnxwo-7-dha-e pa 300-90 (27-45) mg capsule Take by [...] DAILY 90 capsule 3 4 Active vit C,U-Ug-ivutx-lute in-johnsonan 250-90-40-1 mg capsule Take by mouth [...] SSS, Symptomatic Bradycardia, PAF. [facility] [employer] remote [facility]. Lack of energy 05/26/2020 Nonrheumatic aortic valve stenosis 05/26/2020 Bradycardia 05/26/2020 Hyperlipidemia LDL goal <100 05/26/2020 Essential hypertension 05/26/2020 Ectopic atrial rhythm 05/26/2020 Encounters Date Type Department Care Team Description 06/25/2025 7:15 AM CDT Ancillary Procedure [facility] Cardiology [address] [facility] [address] [place] [phone] Cardiac pacemaker in situ; SSS (sick sinus syndrome) (HCC); PAF (paroxysmal atrial fibrillation); Symptomatic bradycardia 06/13/2025 9:30 AM CDT Office Visit [facility] Cardiology [address] [address] [place] [phone] Alin Shelley MD Essential hypertension (Primary [...] on file 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 Dx; SSS, Symptomatic Bradycardia, PAF. DOI 07/03/2020-[facility]. Carelink remote monitoring. Routine AAIR <> DDDR Pacemaker Remote. Transmission attached. Battery status: 3.00 V , 8.4 years remaining battery life to MENDEL. Stable lead impedances, pacing and sensing thresholds. Presenting rhythm: AP/VS AP-99.7%, HUMAN RESOURCES MANAGER MANUFACTURING-0.3% 1 AT/AF episodes noted, longest episode was 1 hour and 43 minutes in duration, IEGM demonstrates AFib. AF [place] < 0.1%. 1 Ventricular high rate episodes detected, IEGM demonstrates SVT. Medications: Amlodipine 10 mg, losartan 50 mg, patient has refused anticoagulation in the past See scanned report. Office pacemaker follow up: 12/04/25 CareLink remote f/u for 10/02/25. Kaushik Jade RN us Alin Shelley MD [facility] Final Result from Last 3 Months Insurance [facility] MEDICARE MEDICARE [facility] MEDICARE MEDICARE Care Teams Wire Border Assembler Relationship Specialty Start Date End Date Truong Chavarria DO PCP - General Internal Medicine 09/22/17
--- OUTSIDE RECORDS SUMMARY | 2025-07-12 12:20 | XMS_ITS | Clinical Summary ---
Author Organization [facility] Address [address] [place] [address] Care Team Providers Care Visual Effects Artist Name Role Phone Unavailable Primary Care Provider Unavailabl e Source Comments [facility],non-owned Affiliates and Associated Physician Practices is amultiple site organization consisting of ambulatory clinics and hospital sitesin [place], [place], [place] and [place]. This disclosure is being madepursuant to the Care Everywhere program and may not contain all information available regarding this patient. Last updated 18.[facility] [employer] Social History Tobacco Use Types Packs/Day Years Used Date Smoking Tobacco: Never Assessed Comments Unknown Sex and Gender Information Value Date Recorded Sex Assigned at Not on file Legal Sex Female 10:17 AM CDT Gender Identity Not on file Sexual Orientation Not on file Plan of Treatment Health Maintenance Due Date Last Done Comments BONE DENSITY TESTING 1943 DTAP/TDAP/TD VACCINES (1 - Tdap) 1962 PNEUMOCOCCAL VACCINE 50+ (1 of 1 - PCV) 1993 ZOSTER VACCINE (1 of 2) 1993 Respiratory Syncytial Virus (RSV) Vaccine Pt: or over 60 yrs (1 - 1-dose 75+ series) 2018 COVID-19 VACCINE ( - 2023-2 5 season) 2024 DEPRESSION SCREENING 11/07/2024 INFLUENZA VACCINE (#1) 2025 HEPATITIS B VACCINE Aged Out No [...] age to complete this topic Insurance MEDICARE [facility] MEDICARE
[2025-07-12] MEDS: HYDROcodone/acetaminophen (*CRX) 5-325 MG TABLET 1 TAB PO (12:37)
[2025-07-12 12:42] VITALS: BP 110/60; BP 128/58; PULSE 59; PULSE 62
[2025-07-12 12:43] VITALS: BP 102/51; PULSE 62
[2025-07-12 13:01] LABS: Hematocrit 34.9 % (37.0-47.0); Hemoglobin 11.0 g/dL (12.0-15.0); Immature Granulocyte Percent A 0.3 % (0-0.5); Lymphocytes Absolute Auto 1.84 K/mm3 (0.9-3.2); Mean Corpuscular HGB Conc 31.5 g/dl (32-36); Mean Corpuscular Hemoglobin 26.6 pg (26-34); Mean Corpuscular Volume 84.3 fl (80-100); Nucleated Red Blood Cells Absolute Auto 0.000 K/mm3 (0.0-0.012); Nucleated Red Blood Cells Perc 0.0 % (0.0-0.2); Platelet Count Result 198 k/mm3 (150-375); Red Blood Count 4.14 M/mm3 (4.2-5.4); White Blood Count 9.8 K/mm3 (4.5-10.0)
[2025-07-12 13:17] LABS: INR 1.2; Prothrombin Time 15.3 Seconds (11.1-14.7)
[2025-07-12 13:18] LABS: Partial Thromboplastin Time 31.6 Seconds (22.3-36.8)
[2025-07-12 13:24] LABS: Anion Gap 7 mmol/L (4-12); Blood Urea Nitrogen 22 mg/dL (7-17); CRP 7.2 mg/dL (<1.0); Calcium 9.0 mg/dL (8.4-10.2); Carbon Dioxide 26 mmol/L (22-30); Chloride 101 mmol/L (98-107); Estimated CRCL calculation 32 ml/min; Estimated Glomerular Filt Rate 45; Glucose 148 mg/dL (65-110); Potassium 3.8 mmol/L (3.4-5.0); Sodium 134 mmol/L (137-145)
[2025-07-12] MEDS: SODIUM CHLORIDE 0.9% IV 1,000 ML 999 ML IV CONT (13:51)
[2025-07-12] MEDS: CEPHALEXIN 500 MG CAPSULE PO (14:32)
[2025-07-12 14:34] VITALS: BP 125/51; PULSE 75; RESP 18; O2SAT 98
== END 2025-07-12 14:44 | disposition home or self-care (01) ==
PROVIDERS: Emergency Provider Student in an Organized Health Care Education/Training Program
DX: L03.113 Cellulitis of right upper limb (principal); N17.9 Acute kidney failure, unspecified; D64.9 Anemia, unspecified; R79.82 Elevated C-reactive protein (CRP); M19.041 Primary osteoarthritis, right hand; I35.0 Nonrheumatic aortic (valve) stenosis; I10 Essential (primary) hypertension; J45.909 Unspecified asthma, uncomplicated; K21.9 Gastro-esophageal reflux disease without esophagitis; Z95.0 Presence of cardiac pacemaker; Z85.3 Personal history of malignant neoplasm of breast; Z92.3 Personal history of irradiation; Z86.0101 Personal history of adenomatous and serrated colon polyps; Z87.891 Personal history of nicotine dependence
CPT/HCPCS: 36415; 73130; 80048; 85025; 85610; 85652; 85730; 86140; 93971; 96360; 99284; A9270; J7030

== ENCOUNTER 2025-07-18 14:36 | Outpatient (CLI) | payer MEDICARE, SELFPAY ==
--- OUTSIDE RECORDS SUMMARY | 2025-07-18 16:19 | XMS_ITS | Clinical Summary ---
Author Organization [facility] [address] Address [address] [place] [address] Care Team Providers Care Qa Tech Name Role Phone Truong Chavarria DO Primary Care Provider +1- [phone] Allergies No known active allergies Medications albuterol [...] mcg total) by mouth daily Active krill xpo-ipynh-0-dha-e pa 300-90 (27-45) mg capsule Take by [...] DAILY 90 capsule 3 4 Active vit C,C-Gy-tilnk-lute in-johnsonan 250-90-40-1 mg capsule Take by mouth [...] Pacemaker. Dx; SSS, Symptomatic Bradycardia, PAF. [facility] [employer] remote monitoring. 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] on file 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 Dx; SSS, Symptomatic Bradycardia, PAF. DOI 07/03/2020-[facility]. Carelink remote monitoring. Routine AAIR <> DDDR Pacemaker Remote. Transmission attached. Battery status: 3.00 V , 8.4 years remaining battery life to MENDEL. Stable lead impedances, pacing and sensing thresholds. Presenting rhythm: AP/VS AP-99.7%, RUG CLEANER HAND-0.3% 1 AT/AF episodes noted, longest episode was 1 hour and 43 minutes in duration, IEGM demonstrates AFib. AF [place] < 0.1%. 1 Ventricular high rate episodes detected, IEGM demonstrates SVT. Medications: Amlodipine 10 mg, losartan 50 mg, patient has refused anticoagulation in the past See scanned report. Office pacemaker follow up: 12/04/25 CareLink remote f/u for 10/02/25. Kaushik Jade RN us Alin Shelley MD CV CARDIAC SERVICES [facility] Final Result from Last 3 Months Insurance [facility] MEDICARE MEDICARE [facility] MEDICARE MEDICARE Care Teams Qa Tech Relationship Specialty Start Date End Date Truong Chavarria DO PCP - General Internal Medicine 09/22/17
[2025-07-18 19:33] LABS: Uric Acid 9.8 mg/dL (2.5-7.5)
[2025-07-18 21:00] LABS: Hemoglobin A1C 7.0 % (<5.7)
== END 2025-07-18 14:37 | disposition home or self-care (01) ==
LOC: ANHGOSHLAB 14:37
PROVIDERS: PCP Internal Medicine; Visit Provider Nurse Practitioner
DX: E11.9 Type 2 diabetes mellitus without complications (principal); M10.9 Gout, unspecified
CPT/HCPCS: 36415; 83036; 84550

== ENCOUNTER 2025-08-15 10:20 | Outpatient (CLI) | payer MEDICARE, SELFPAY ==
[2025-08-15 11:06] LABS: Total Protein Urine Random 7 mg/dL; Ur Ttl Prot Creatinine Ratio 0.10 mg/mg (0-0.20)
[2025-08-15 11:16] LABS: Uric Acid 8.5 mg/dL (2.5-7.5)
[2025-08-15 11:18] LABS: Albumin Level 4.1 g/dL (3.5-5.1); Anion Gap 8 mmol/L (4-12); Blood Urea Nitrogen 25 mg/dL (7-17); Calcium 9.1 mg/dL (8.4-10.2); Carbon Dioxide 27 mmol/L (22-30); Chloride 100 mmol/L (98-107); Estimated Glomerular Filt Rate 55; Glucose 188 mg/dL (65-110); Potassium 4.1 mmol/L (3.4-5.0); Sodium 135 mmol/L (137-145)
[2025-08-15 11:28] LABS: Parathyroid Intact 34.6 pg/mL (14.5-75.2)
== END 2025-08-15 10:21 | disposition home or self-care (01) ==
PROVIDERS: PCP Internal Medicine; Referring Provider Internal Medicine Nephrology; Visit Provider Nurse Practitioner
DX: M10.9 Gout, unspecified (principal); I12.9 Hypertensive chronic kidney disease with stage 1 through stage 4 chronic kidney disease, or unspecified chronic kidney disease; N18.31 Chronic kidney disease, stage 3a; N25.81 Secondary hyperparathyroidism of renal origin; E55.9 Vitamin D deficiency, unspecified
CPT/HCPCS: 36415; 80069; 82306; 82570; 83970; 84156; 84550

== ENCOUNTER 2025-09-13 14:00 | Outpatient (CLI) | payer MEDICARE, SELFPAY ==
--- OUTSIDE RECORDS SUMMARY | 2025-04-23 02:30 | XMS_ITS ---
Author Organization [facility] Address [address] [place], [place] [id number] Care Team Providers Care Senior Technical Specialist Name Role Phone KATIA VENTURA Unavailable [phone] Truong Chavarria Unavailable Unavailable Allergies No Known Allergies REASON FOR VISIT toe pain Medications Medication SIG (Take, Route, Frequency, Duration) Notes Start Date End Date Status Medrol 4 MG Tablet Therapy Pack as directed Orally 04/23/2025 Active Vital Signs Height 65 in 04/23/2025 Weight 162 lbs 04/23/2025 BMI 26.96 kg/m2 04/23/2025 Height-cm 165.1 cm 04/23/2025 Weight-kg 73.48 kg 04/23/2025 Encounters Encounter Location Date Provider Diagnosis [facility] [address] [place], [place] [id number] 04/23/2025 KATIA VENTURA Idiopathic gout, right ankle and foot M10.071 ; Idiopathic gout, left ankle and foot M10.072 ; Pain in right foot M79.671 and Left foot pain M79.672 Assessments Encounter Date Diagnosis (ICD Code) Assessment Notes Treatment Notes Treatment Clinical Notes Section Notes 04/23/2025 Idiopathic gout, right ankle and foot (ICD-10 - M10.071) 04/23/2025 Idiopathic gout, left ankle and foot (ICD-10 - M10.072) 04/23/2025 Pain in right foot (ICD-10 - M79.671) 04/23/2025 Left foot pain (ICD-10 - M79.672) Plan Of Treatment Medication Medication Name Sig Start Date Stop Date Notes Medrol 4 MG Tablet Therapy Pack as directed Orally 025 History and Physical Notes * HPI (History of Present Illness) Category Sub-Category Detail Notes Category Not es HPI New Complaint Patient presents for a new patient consultation. Patient complains of an issue to right foot. Patient states she went to urgent care, and they did X-rays and told her she has two broken toes. Patient states she has been taking anti biotics for it. It is her second toe and her pinky toe on her right foot. , MA: da Examination Category Sub-Category Detail Notes Category Not es X-Ray LEFT FOOT Three views of t he foot were obtained: There is a Agustín's sign of the lateral 4th MTH RIGHT FOOT 3 views of the foot were obtained: There is no evidence of fracture, dislocation, or other osseous lesions. Constitutional Constitutional The patient is a wake, alert, well developed, well groomed and well nourished. Dermatologic Skin findings: Skin is warm, dr y, supple with no breaks in the skin. Nail pathology: Nails 1-5 bilateral are normal in appearance and thickness. No discoloration. Ulcer: There is no evidence of ulceration noted at this time Hyperkeratotic Skin Lesion There is no e vidence of hyperkeratosis Musculoskeletal Muscle Strength Muscle strength is 5/5 in regards to dorsiflexion, plantarflexion, inversion, and eversion in bilateral lower extremities. Pain on palpation right 2nd toe. Tailors Bunion There is a laterally prominent 5th metatarsal head of the left foot Foot Structure The foot structure i s noted to be normal bilaterally Gait There is normal gait noted Neurologic Muscle power: 5/5 bilaterally Gross sensation Gross sensation is i ntact to light touch. Vascular Dorsalis pedis pulse: 2/4 bilateral Posterior tibial pulse: 2/4 bilaterally Capillary refill: less than 3 seconds bilaterally Temperature gradient: within normal limi ts Progress Notes * Bekah PETTY LDOB:[birth year] (79 yo F)Acc No.[id number]:04/23/2025 Progress Notes Patient: Bekah Recinos Provider: Epifanio Ventura DPM :1945 A ge:79 Y S ex:Female Date:04/23/2025 Address:[facility] [address] [id number] Subjective: * Chief Complaints: * T oe pain * HPI: H PI: New Complaint P titus presents for a new patient consultation. Patient complains of an issue to right foot. Patient states she went to urgent care, and they did X-rays and told her she has two broken toes. Patient states she has been taking anti biotics for it. It is her second toe and her pinky toe on her right foot. , MA: da. * Medical History: Asthma/Bronchitis Cancer GERD Arthritis Gout Diabetic Radiation therapy High blood pressure Medical History Verified * Surgical History: Pacemaker Surgical History verified. * Hospitalization/Major Diagno stic Procedure: Denies Past Hospitalization. Hospitalization Verified. * Family History: N o Family History documented.. F amily History Verified.. * Social History: Social History Verified. No Social History documented. * Medications: N one * Allergies: N .K.D.A.yesAllergies Verified. Objective: * Vitals: S hoe Size: 9, Wt: 162 lbs, Wt-k.48 kg, Ht: 65 in, Ht-cm: 165.1 cm, BMI: 26.96 Index, Body Surface Area: 1.83. * Examination: C onstitutional: Constitutional T he patient is awake, alert, well developed, well groomed and well nourished. . D ermatologic: Skin findings: S kin is warm, dry, supple with no breaks in the skin. . Nail pathology: N ails 1-5 bilateral are normal in appearance and thickness. No discoloration. . Ulcer: T here is no evidence of ulceration noted at this time . Hyperkeratotic Skin Lesion T here is no evidence of hyperkeratosis . M usculoskeletal: Muscle Strength M uscle strength is 5/5 in regards to dorsiflexion, plantarflexion, inversion, and eversion in bilateral lower extremities. . Foot Structure T he foot structure is noted to be normal bilaterally . Pain on palpation r ight 2nd toe.. Tailors Bunion T here is a laterally prominent 5th metatarsal head of the left foot . Gait T here is normal gait noted . N eurologic: Muscle power: 5 /5 bilaterally . Gross sensation G ross sensation is intact to light touch. . V ascular: Dorsalis pedis pulse: 2 /4 bilateral . Posterior tibial pulse: 2 /4 bilaterally . Capillary refill: l ess than 3 seconds bilaterally . Temperature gradient: w ithin normal limits . ? X -Ray: LEFT FOOT T hree views of the foot were obtained: There is a Agustín's sign of the lateral 4th MTH. RIGHT FOOT 3 views of the foot were obtained: There is no evidence of fracture, dislocation, or other osseous lesions. . Assessment: * Assessment: 1. I diopathic gout, right ankle and foot - M10.071 (Primary) 2 . I diopathic gout, left ankle and foot - M10.072 3 . P ain in right foot - M79.671 ? 4 . L eft foot pain - M79.672 Plan: * Treatment: * Procedure Codes: 7 3630 X-RAY EXAM OF FOOT, Modifiers: [place] [address] X-RAY EXAM OF FOOT, Modifiers: LT * Preventive Medicine: Screenings: F all risk screening Fall Risk Assessment: N o falls in the past year Billing Information: * Visit Code: 43458 Office Visit, New Pt., Level 3. * Procedure Codes: 92289 X-RAY EXAM OF FOOT. Modifiers: RT [address]602 X-RAY EXAM OF FOOT. Modifiers: LT * Electronic signature of KATIA VENTURA DPM on 09/13/2025 at 02:03 PM [employer] Sign off status: Pending * Provider: Epifanio Ventura DPM Date: 0 04/23/2025 Generated for Victoria gaines/Onesimo/Ann on: 11/13/2024 02:03 PM [employer]
--- OUTSIDE RECORDS SUMMARY | 2025-05-07 02:40 | XMS_ITS ---
Author Organization [facility] Address [address] [place], [place] [phone] Care Team Providers Care Sand Miller Name Role Phone KATIA VENTURA Unavailable [phone] Truong Chavarria Unavailable Unavailable REASON FOR VISIT gout follow up Encounters Encounter Location Date Provider Diagnosis [facility] [address] [place], [place] [id number] 05/07/2025 KATIA VENTURA Plan Of Treatment No Information Progress Notes * Bekah PETTY LDOB:[birth year] (79 yo F)Acc No.[id number]:05/07/2025 Patient: Gómez avila Bekah Richardson Provider: Epifanio Ventura DPM :1945 A ge:79 Y S ex:Female Date:05/07/2025 Address[address] [id number] Subjective: * Chief Complaints: * G out follow up * Electronic signature of KATIA VENTURA DPM on 09/13/2025 at 02:03 PM [employer] Sign off status: Pending * Provider: Epifanio Ventura DPM Date: 05/07/2025 Generated for Montyi ng/Onesimo/eTransmitting on: 11/13/2024 02:03 PM [employer]
--- OUTSIDE RECORDS SUMMARY | 2025-09-13 14:03 | XMS_ITS | Clinical Summary ---
Author Organization [facility] Address [address] [place] [address] Care Team Providers Care Engine Boss Name Role Phone Unavailable Primary Care Provider Unavailabl e Source Comments [facility],non-owned Affiliates and Associated Physician Practices is amultiple site organization consisting of ambulatory clinics and hospital sitesin [place], [place], [place] and [place]. This disclosure is being madepursuant to the Care Everywhere program and may not contain all information available regarding this patient. Last updated 18.[facility] [email or web address] Social History Tobacco Use Types Packs/Day Years [...] yrs (1 - 1-dose 75+ series) 2018 DEPRESSION SCREENING 11/07/2024 COVID-19 VACCINE (1 - 2023-2 5 season) 2025 INFLUENZA VACCINE (#1) 2025 HEPATITIS B VACCINE [...] age to complete this topic Insurance MEDICARE [facility] MEDICARE
--- OUTSIDE RECORDS SUMMARY | 2025-09-13 14:04 | XMS_ITS | Patient Health Record ---
Author Organization [facility] Address [address] [place], [place] [id number] Care Team Providers Care Clay Modeler Name Role Phone ISIAHMAMI KATIA Unavailable [phone] Truong Chavarria Unavailable Unavailable Allergies No Known Allergies Reason For Referral No Information Medications Medication SIG (Take, Route, Frequency, Duration) Notes Start Date End Date Status Medrol 4 MG Tablet Therapy Pack as directed Orally 04/23/2025 Active Vital Signs Height-cm 165.1 cm 04/23/2025 Weight-kg 73.48 kg 04/23/2025 Height 65 in 04/23/2025 Weight 162 lbs 04/23/2025 BMI 26.96 kg/m2 04/23/2025 Encounters Encounter Location Date Provider Diagnosis [facility] [address] [place], [place] [id number] 04/23/2025 KATIA LOCKHART Idiopathic gout, 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
--- OUTSIDE RECORDS SUMMARY | 2025-09-13 14:04 | XMS_ITS | Clinical Summary ---
Author Organization [facility] [place] [address] Address [address] [place] [address] Care Team Providers Care Jewelry Polisher Name Role Phone eSanTruong cotto Shadotilia CALDERON Primary Care Provider Allergies No known active allergies Medications albuterol [...] mcg total) by mouth daily Active krill zue-kcsoa-4-dha-e pa 300-90 (27-45) mg capsule Take by mouth Activ e cholecalciferol, vitamin D3, (VITAMIN D3 ORAL) Take by mouth Active acetaminophen ER (TYLENOL) 650 mg 8 hr tablet Take 1 tablet (650 mg total) by mouth every 8 (eight) hours as needed for pain Active alendronate (FOSAMAX) 70 mg tablet Take 1 tablet (70 mg total) by mouth every 7 days 4 Active vit C,B-Oz-tlser-lute in-zeaxan 250-90-40-1 mg capsule Take by mouth Active calcium carbonate (CALCIUM 500 ORAL) Take by mouth Active ascorbic acid (vitamin C) 1,000 mg tablet Take 1 tablet (1,000 mg total) by mouth daily Active hydroCHLOROthiazi de 12.5 mg tabletIndications :Essential hypertension TAKE 1 CAPSULE BY MOUTH DAILY 90 tablet/capsu le 3 5 Active Active Problems Problem Noted Date Diagnosed Date KATELYNN (obstructive sleep apnea) 06/13/2025 Hypersomnolence 11/18/2021 PAF (paroxysmal atrial fibrillation) 05/14/2021 Visit for wound check 07/10/2020 Cardiac pacemaker in situ 07/07/2020 Overview (11/18/2021): [employer]onic [place] Dual Pacemaker. Dx; SSS, Symptomatic Bradycardia, PAF. [facility] [employer] [facility]. Lack of energy 05/26/2020 Nonrheumatic aortic valve stenosis 05/26/2020 Bradycardia 05/26/2020 Hyperlipidemia LDL goal <100 05/26/2020 Essential hypertension 05/26/2020 Ectopic atrial rhythm 05/26/2020 Encounters Date Type Department Care Team Description 06/25/2025 7:15 AM CDT Ancillary Procedure [facility] [address] [facility] [address] [place] [phone] Cardiac pacemaker in situ; SSS (sick sinus syndrome) (HCC); PAF (paroxysmal atrial fibrillation); Symptomatic bradycardia 06/13/2025 9:30 AM CDT Office Visit [facility] [address] [facility] [address] [place] [phone] Alin Shelley MD Essential hypertension (Primary [...] on file Legal Sex Female 11:49 AM [employer] Gender Identity Not on file Sexual Orientation [...] Other Narrative 07/10/2025 12:19 PM CDT Med[employer]onic [place] Dual Pacemaker. Dx; SSS, Symptomatic Bradycardia, PAF. DOI 07/03/2020-[facility]. [employer] remote monitoring. Routine AAIR <> DDDR Pacemaker Remote. Transmission attached. Battery status: 3.00 V , 8.4 years remaining battery life to MENDEL. Stable lead impedances, pacing and sensing thresholds. Presenting rhythm: AP/VS AP-99.7%, BAGGAGE CLERK-0.3% 1 AT/AF episodes noted, longest episode was 1 hour and 43 minutes in duration, IEGM demonstrates AFib. AF [place] < 0.1%. 1 Ventricular high rate episodes detected, IEGM demonstrates SVT. Medications: Amlodipine 10 mg, losartan 50 mg, patient has refused anticoagulation in the past See scanned report. Office pacemaker follow up: 12/04/25 [employer] remote f/u for 10/02/25. Kaushik Jade RN Alin Shelley MD [facility] Final Result from Last 3 Months Insurance [facility] MEDICARE [place] [id number] MEDICARE [facility] MEDICARE MEDICARE Care Teams Jewelry Polisher Relationship Specialty Start Date End Date Truong Chavarria DO PCP - General Internal Medicine 09/22/17
[2025-09-13 15:01] LABS: Hematocrit 36.5 % (37.0-47.0); Hemoglobin 11.4 g/dL (12.0-15.0); Immature Granulocyte Percent A 0.4 % (0-0.5); Lymphocytes Absolute Auto 1.79 K/mm3 (0.9-3.2); Mean Corpuscular HGB Conc 31.2 g/dl (32-36); Mean Corpuscular Hemoglobin 26.9 pg (26-34); Mean Corpuscular Volume 86.1 fl (80-100); Nucleated Red Blood Cells Absolute Auto 0.000 K/mm3 (0.0-0.012); Nucleated Red Blood Cells Perc 0.0 % (0.0-0.2); Platelet Count Result 214 k/mm3 (150-375); Red Blood Count 4.24 M/mm3 (4.2-5.4); White Blood Count 9.7 K/mm3 (4.5-10.0)
[2025-09-13 15:12] LABS: Uric Acid 6.3 mg/dL (2.5-7.5)
== END 2025-09-13 14:01 | disposition home or self-care (01) ==
PROVIDERS: PCP Internal Medicine; Visit Provider Nurse Practitioner
DX: M10.9 Gout, unspecified (principal); D64.9 Anemia, unspecified
CPT/HCPCS: 36415; 84550; 85025